=== PATIENT | female | born 1960 | race Caucasian/White ===

== ENCOUNTER 2016-09-05 10:14 | Inpatient (IN) | payer OTHER ==
[~2016-09-05] VITALS: Ht 167.6 cm; Wt 108.6 kg
--- NOTE | ~2016-09-05 | WRIGHTHP ---
[place], [place] PATIENT HISTORY AND PHYSICAL EXAM NAME: [facility]AN [facility] [id number] UNIT #: [id number] ROOM: 416 DOCTOR: NERY WIGGINS MD BIRTHDATE: [birth year] DOS: 09/05/2016 HISTORY OF PRESENT ILLNESS: This patient is 56 years old. The patient comes in with complaints of difficulty breathing for the last week. She was seen in the Emergency Room, was placed on steroids, antibiotics, and inhaler. Did not get any better, continued to get worse, and so finally decided to come back in. She denies having any chest pains or palpitations. She states that she has not been smoking for about last 3-4 days. PAST MEDICAL HISTORY: Significant for: 1. Coronary artery disease of [place] coronaries. 2. Benign hypertension. 3. Type 2 diabetes mellitus. 4. Generalized anxiety disorder. 5. Small vessel disease of the brain. 6. Tobacco dependence. MEDICATIONS: ProAir q.i.d., aspirin 81, Persantine 25, lisinopril-hydrochlorothiazide one tablet daily, metformin 250 daily. SOCIAL HISTORY: Smoker of about 1 pack of cigarettes a day. Denies using any alcohol. Lives at home with her . PHYSICAL EXAMINATION: GENERAL: She is awake and alert and oriented, in mild respiratory distress. Has oxygen on. VITAL SIGNS: Blood pressure is 108/64, pulse is 68, respirations 22, temperature 98.3. LUNGS: Diminished breath sounds. HEART: Regular. ABDOMEN: Obese. EXTREMITIES: Without any edema. ASSESSMENT AND PLAN: 1. Hypoxic respiratory failure. Saturation was in the low 80s when she arrived. She was placed on oxygen supplementation with improvement in the saturations. 2. Acute exacerbation of chronic obstructive pulmonary disease. The patient is ordered a chest x-ray, which did not show any evidence of pneumonia. The patient is placed on IV steroids and antibiotics. 3. Tobacco dependence. Advised against smoking. 4. Benign hypertension, controlled. 5. Type 2 diabetes mellitus, non-insulin dependent. With the steroids, the sugars may go up. We will be careful with the blood sugars twice a day. [place], [place] PATIENT HISTORY AND PHYSICAL EXAM NAME: KATHRINE REAGAN UNIT #: [id number] ROOM: 416 DOCTOR: NERY WIGGINS MD BIRTHDATE: [birth year] NERY WIGGINS MD CM:HISPHYS:PATIENT HISTORY AND PHYSICAL EXAMINATION 2 NERY WIGGINS MD 09/06/16 1134 interface
--- NOTE | ~2016-09-05 | DS ---
[place], [place] DISCHARGE SUMMARY NAME: KATHRINE REAGAN UNIT #: [id number] ROOM: 416 DOCTOR: NERY WIGGINS MD BIRTHDATE: [birth year] DOS: 09/08/2016 This patient is 56 years old. The patient is admitted to the hospital on 09/05/2016, discharged on 09/08/2016. DIAGNOSES: 1. Acute exacerbation of chronic obstructive pulmonary disease. 2. Tobacco dependence. 3. Acute hypoxic respiratory failure. 4. Benign hypertension. 5. Type 2 diabetes mellitus, non-insulin dependent. 6. Coronary artery disease with moderate disease. 7. Small vessel disease of the brain. MEDICATIONS ON DISCHARGE: Will be DuoNebs q.4, doxycycline 100 mg twice a day, prednisone tapering dose, oxygen 2 liters, metformin 250 daily, Persantine 25 daily, aspirin 81 daily, lisinopril/hydrochlorothiazide 20/12.5 daily. HOSPITAL COURSE: The patient is very well known to us, 56 years old, comes in with complaints of difficulty breathing. She was already seen in the Emergency Room 2 weeks ago, was prescribed steroids and inhaler, continued to get worse, so she decided to come in to the Emergency Room. This time, her saturation on room air was in the low 80s, was placed on oxygen supplementation, IV steroids and breathing treatments and was admitted. She has improved, the bronchospasm has resolved, but she still has a very moist sounding cough and is going to have a CT of the chest this morning. Exercise oximetry showed that she desaturated and she would require oxygen 24 hours at home. She is advised against smoking and has requested Habitrol patch which will be prescribed today. Breathing treatments and nebulizer has also been ordered. If the CT of the chest does not show anything major, the patient will be discharged home to be followed up as an outpatient. [place], [place] DISCHARGE SUMMARY NAME: KATHRINE REAGAN UNIT #: [id number] ROOM: 416 DOCTOR: NERY WIGGINS MD BIRTHDATE: [birth year] NERY WIGGINS MD CM:DISCHARG [id number] NERY WIGGINS MD 09/08/16 1146 interface
--- NOTE | ~2016-09-05 | PR ---
[place], [place] PROGRESS NOTE NAME: KATHRINE REAGAN UNIT #: [id number] ROOM: 416 DOCTOR: NERY WIGGINS MD BIRTHDATE: [birth year] DOS: 09/07/2016 SUBJECTIVE: The patient states that she felt better and did have a good night sleep. OBJECTIVE: VITAL SIGNS: Graphic trend shows a pressure of 126/64, pulse of 63, respirations 22, temperature 97.9. LUNGS: Clear. HEART: Regular. ABDOMEN: Obese, soft. EXTREMITIES: Without any edema. ASSESSMENT AND PLAN: 1. Acute exacerbation of chronic obstructive pulmonary disease with failed outpatient regimen. Her bronchospasm is improving with the current treatment plan. 2. Acute hypoxic respiratory failure. Exercise oximetry will be done today to see whether she will need oxygen at home. 3. Benign hypertension, controlled. The plan will be to discharge her to home tomorrow. NERY WIGGINS MD CM:PNTRANS [id number] NERY WIGGINS MD 10/11/16 1347 interface
--- NOTE | ~2016-09-05 | PR ---
[place], [place] PROGRESS NOTE NAME: KATHRINE REAGAN UNIT #: [id number] ROOM: 416 DOCTOR: NERY WIGGINS MD BIRTHDATE: [birth year] DOS: 09/08/2016 SUBJECTIVE: The patient is doing fine without any new complaints. She still has a cough which is moist. OBJECTIVE: VITAL SIGNS: Graphic trend shows a pressure 122/68, pulse of 68, respirations 20, temperature 97.6. LUNGS: Diminished breath sounds, fairly clear this morning. HEART: Regular. ABDOMEN: Obese, soft. EXTREMITIES: Without any edema. ASSESSMENT AND PLAN: 1. Acute exacerbation of chronic obstructive pulmonary disease, on IV steroids and breathing treatments. 2. Acute hypoxic respiratory failure. Exercise oximetry showed that she desaturated, oxygen will be ordered for home right now. This may be temporary, we will have to wait and see how she progresses. 3. Benign hypertension, controlled. The plan is to discharge her to home today after the CT of the chest was done. Discussed with the patient's daughter. NERY WIGGINS MD CM:PNTRANS [phone] NERY WIGGINS MD 09/08/161912 interface
[~2016-09-05 10:14] MED LIST: AMOXICILLIN500 M2 PO; ASPIR-LOX AD325 MG PO; ASPIRIN325 M2 PO; ASPIRIN81 M1 PO; AUGMENTIN 875 M1 TA1 PO; BACTRIM DS 8001 TA1 PO; BENTYL20 MG PO; BIAXIN500 MG PO; CLARITIN10 MG PO; DAYPRO600 M1 PO; DIPYRIDAMOLE25 MG PO; Ecotrin325 MG PO; FLEXERIL5 MG PO; FLONASE0.05 MG/AC NS; GLUCOPHAGE500 MG PO; HYDROCHLOROTHIAZIDE; HYDROCODONE BIT1 T11 PO; LISINOPRIL; LISINOPRIL/HCTZ1 TA4 PO; LISINOPRIL20 MG PO; LOPID600 M1 PO; MEDROL DOSEPAK4 MG PO; METOPROLOL50 MG PO; MOTRIN800 MG PO; NORCO 325 MG-101 TAB PO; PERSANTINE25 MG PO; PHENERGAN W/DM120 ML PO; PREDNICOT10 MG PO; PREDNISONE10 MG PO; PREDNISONE20 M1 PO; PREDNISONE20 MG PO; PRILOSEC40 MG PO; PRINIVIL20 M1 PO; PROAIR HFA8.5 GM INH; PROVENTIL0.09 MG/AC IH; ROBITUSSIN DM 105 ML PO; SONATA10 MG PO; TOBRADEX 0.1%-0.5 ML OPH; TRICOR145 MG PO; TYLOPHEN500 MG PO; VICODIN 5/500 505 MG PO; VITAMIN D5000 I3 PO; VITAMIN D5000 IU PO; ZITHROMAX Z PA250 MG PO
[2016-09-05 10:19] VITALS: BP 155/66
[2016-09-05 10:57] LABS: BASO # 0.1 10*3/uL (0.0-0.1); BASO % 0.5 % (0.0-1.0); EOS # 0.2 10*3/uL (0.0-0.4); EOS % 1.4 % (1.0-4.0); HEMATOCRIT 46.3 % (37.0-47.0); HEMOGLOBIN 14.9 g/dl (12.0-16.0); IG # 0.1 10*3/uL (0.0-0.1); LYMPH # 2.8 10*3/uL (1.3-4.4); LYMPH % 21.1 % (27.0-41.0); MEAN CELL VOLUME 93.9 fl (81.0-99.0); MEAN CORPUSCULAR HGB 30.2 pg (27.0-31.0); MEAN CORPUSCULAR HGB CONC 32.2 g/dl (33.0-37.0); MEAN PLATELET VOLUME 10.2 fl (9.6-12.3); MONO # 0.7 10*3/uL (0.1-1.0); MONO % 5.4 % (3.0-9.0); NEUT # 9.4 10*3/uL (2.3-7.9); NEUT % 70.8 % (47.0-73.0); PLATELET COUNT AUTOMATED 341 10*3/uL (130-400); RED BLOOD COUNT 4.93 10*6/uL (4.10-5.10); WHITE BLOOD COUNT 13.2 10*3/uL (4.8-10.8)
[2016-09-05 11:06] LABS: INTERNATIONAL NORM RATIO 0.9 (2.0-3.5)
[2016-09-05 11:14] LABS: ALBUMIN 3.3 gm/dl (3.1-4.5); ALKALINE PHOSPHATASE 78 U/L (45-117); BILIRUBIN, TOTAL 0.3 mg/dl (0.2-1.0); BUN 8 mg/dl (7-24); CARBON DIOXIDE 30 mmol/L (21-32); CHLORIDE 104 mmol/L (98-107); EST GLOM FILT AFRICAN AMERICAN > 60 ml/min; GLUCOSE 118 mg/dL (65-99); MAGNESIUM 2.1 mg/dL (1.5-2.1); POTASSIUM 4.3 mmol/L (3.5-5.1); SGOT/AST 9 IU/L (3-35); SGPT/ALT 17 U/L (12-78); SODIUM 141 mmol/L (136-145); TOTAL PROTEIN 7.3 gm/dL (6.4-8.2)
[2016-09-05 11:18] LABS: TROPONIN I < 0.015 ng/ml (<0.5)
[2016-09-05 11:40] VITALS: BP 142/66
[2016-09-05 12:30] VITALS: BP 124/64
[2016-09-05] MEDS ORDERED: LISINOPRIL-HYDR1 TA1 PO (13:14)
[2016-09-05 16:00] VITALS: BP 125/57
[2016-09-05 18:37] LABS: BILIRUBIN NEGATIVE (NEGATIVE); BLOOD TRACE-INTACT (NEGATIVE); CLARITY CLEAR (CLEAR); COLOR YELLOW (YELLOW); GLUCOSE NEGATIVE (NEGATIVE); KETONE NEGATIVE (NEGATIVE); LEUKO ESTERASE 1+ (NEGATIVE); NITRITE NEGATIVE (NEGATIVE); PH 5.5 (5.0-9.0); PROTEIN NEGATIVE (NEGATIVE); SPECIFIC GRAVITY 1.015 (1.005-1.030); UROBILINOGEN 0.2 E.U./dl (0.2-1.0)
[2016-09-05 18:50] LABS: WBC 31-40 wbc/hpf (0-5)
[2016-09-05 18:51] LABS: BACTERIA 1+; URINE REFLEX COMMENT YES (NO)
[2016-09-05 20:00] VITALS: BP 132/54
[2016-09-06] VITALS: BP 121/58
[2016-09-06 08:00] VITALS: BP 108/54
[2016-09-06 12:00] VITALS: BP 116/75
[2016-09-06 16:00] VITALS: BP 129/60
[2016-09-06 20:00] VITALS: BP 135/66
[2016-09-07] VITALS: BP 126/64
[2016-09-07 08:10] VITALS: BP 130/76
[2016-09-07 12:00] VITALS: BP 117/61
[2016-09-07 16:00] VITALS: BP 134/68
[2016-09-07 20:00] VITALS: BP 138/73
[2016-09-08] VITALS: BP 119/65
[2016-09-08 08:00] VITALS: BP 122/68
[2016-09-08] MEDS ORDERED: DUONEB 3 MG/3 ML3 M1 NEB (08:35)
[2016-09-08] MEDS ORDERED: PREDNISONE5 MG PO (08:35)
[2016-09-08] MEDS ORDERED: DOXYCYCLINE100 MG PO (08:35)
== END 2016-09-08 11:53 | disposition home or self-care (01) | DRG 189 ==
LOC: ED 10:14 → EDHOLD 11:49 → 4E 12:17
PROVIDERS: Student in an Organized Health Care Education/Training Program
DX: J96.01 Acute respiratory failure with hypoxia (principal); J44.1 Chronic obstructive pulmonary disease with (acute) exacerbation; I10 Essential (primary) hypertension; F17.200 Nicotine dependence, unspecified, uncomplicated; E11.9 Type 2 diabetes mellitus without complications; I25.10 Atherosclerotic heart disease of native coronary artery without angina pectoris; G93.9 Disorder of brain, unspecified

== ENCOUNTER 2016-12-05 18:24 | Emergency (ER) | payer OTHER ==
--- NOTE | ~2016-12-05 | EKG ---
[place], [place] ELECTROCARDIOGRAM REPORT NAME: KATHRINE REAGAN UNIT #: [id number] ROOM: DOCTOR: CHARLES ARELLANO MD BIRTHDATE: [birth year] DOS: 12/05/2016 TIME: 1852 hours. FINDINGS: 1. Normal sinus rhythm at a rate of 83 with occasional PACs. 2. Leftward axis. 3. Poor precordial R-wave progression. 4. Left atrial enlargement. 5. Abnormal electrocardiogram. CHARLES ARELLANO MD CM:EKGRPT:ELECTROCARDIOGRAM REPORT [id number] 1153 CHARLES ARELLANO MD
[~2016-12-05 18:24] MED LIST changes: +DOXYCYCLINE100 MG PO; +DUONEB 3 MG/3 ML3 M1 NEB; +LISINOPRIL-HYDR1 TA1 PO; +PREDNISONE5 MG PO
[2016-12-05] MEDS ORDERED: PROAIR HFA8.5 GM INH (18:30)
[2016-12-05 18:49] LABS: BASO # 0.1 10*3/uL (0.0-0.1); BASO % 0.5 % (0.0-1.0); EOS # 0.2 10*3/uL (0.0-0.4); EOS % 1.7 % (1.0-4.0); HEMOGLOBIN 15.1 g/dl (12.0-16.0); IG # 0.1 10*3/uL (0.0-0.1); LYMPH # 2.8 10*3/uL (1.3-4.4); LYMPH % 23.1 % (27.0-41.0); MEAN CELL VOLUME 91.9 fl (81.0-99.0); MEAN CORPUSCULAR HGB 31.5 pg (27.0-31.0); MEAN CORPUSCULAR HGB CONC 34.3 g/dl (33.0-37.0); MEAN PLATELET VOLUME 10.2 fl (9.6-12.3); MONO # 0.7 10*3/uL (0.1-1.0); NEUT # 8.4 10*3/uL (2.3-7.9); NEUT % 68.2 % (47.0-73.0); PLATELET COUNT AUTOMATED 306 10*3/uL (130-400); RED BLOOD COUNT 4.79 10*6/uL (4.10-5.10); RED CELL DISTRI WIDTH 14.3 % (0-14.5); WHITE BLOOD COUNT 12.3 10*3/uL (4.8-10.8)
[2016-12-05 19:08] LABS: ALBUMIN 4.1 gm/dl (3.1-4.5); ALKALINE PHOSPHATASE 79 U/L (45-117); BILIRUBIN, TOTAL 0.3 mg/dl (0.2-1.0); BUN 9 mg/dl (7-24); CARBON DIOXIDE 30 mmol/L (21-32); CHLORIDE 102 mmol/L (98-107); EST GLOM FILT AFRICAN AMERICAN > 60 ml/min; GLUCOSE 147 mg/dL (65-99); POTASSIUM 3.8 mmol/L (3.5-5.1); SGOT/AST 14 IU/L (3-35); SGPT/ALT 23 U/L (12-78); SODIUM 144 mmol/L (136-145); TOTAL PROTEIN 7.7 gm/dL (6.4-8.2)
[2016-12-05 19:10] LABS: TROPONIN I < 0.015 ng/ml (<0.045)
== END 2016-12-05 19:47 | disposition home or self-care (01) ==
LOC: ED 18:24
PROVIDERS: Physician Assistant
DX: R04.0 Epistaxis (principal); R00.2 Palpitations; F17.200 Nicotine dependence, unspecified, uncomplicated; Z79.82 Long term (current) use of aspirin; Z90.49 Acquired absence of other specified parts of digestive tract; Z88.1 Allergy status to other antibiotic agents; Z88.6 Allergy status to analgesic agent; Z88.8 Allergy status to other drugs, medicaments and biological substances

== ENCOUNTER 2017-02-25 10:04 | Inpatient (IN) | payer OTHER ==
[~2017-02-25] VITALS: Ht 170.1 cm; Wt 108.2 kg
[2017-02-25 10:04] VITALS: BP 154/76
[2017-02-25] MEDS ORDERED: INSULIN (10:21)
[2017-02-25 10:29] VITALS: BP 152/80
[2017-02-25 10:30] LABS: BASO # 0.1 10*3/uL (0.0-0.1); BASO % 0.6 % (0.0-1.0); EOS # 0.1 10*3/uL (0.0-0.4); EOS % 1.2 % (1.0-4.0); HEMOGLOBIN 15.1 g/dl (12.0-16.0); IG # 0.1 10*3/uL (0.0-0.1); LYMPH # 2.5 10*3/uL (1.3-4.4); LYMPH % 24.4 % (27.0-41.0); MEAN CELL VOLUME 92.4 fl (81.0-99.0); MEAN CORPUSCULAR HGB CONC 33.6 g/dl (33.0-37.0); MEAN PLATELET VOLUME 10.6 fl (9.6-12.3); MONO # 0.6 10*3/uL (0.1-1.0); MONO % 6.4 % (3.0-9.0); NEUT # 6.7 10*3/uL (2.3-7.9); NEUT % 66.8 % (47.0-73.0); PLATELET COUNT AUTOMATED 288 10*3/uL (130-400); RED BLOOD COUNT 4.87 10*6/uL (4.10-5.10); RED CELL DISTRI WIDTH 13.1 % (0-14.5)
[2017-02-25 10:39] LABS: INTERNATIONAL NORM RATIO 0.9 (2.0-3.5); PROTHROMBIN TIME 9.8 SECONDS (9.0-12.4)
[2017-02-25 10:46] LABS: ALBUMIN 4.1 gm/dl (3.1-4.5); ALKALINE PHOSPHATASE 73 U/L (45-117); BILIRUBIN, TOTAL 0.3 mg/dl (0.2-1.0); BUN 9 mg/dl (7-24); C-REACTIVE PROTEIN 0.92 MG/DL (0-0.3); CARBON DIOXIDE 27 mmol/L (21-32); CHLORIDE 105 mmol/L (98-107); CPK 46 U/L (26-192); EST GLOM FILT AFRICAN AMERICAN > 60 ml/min; GLUCOSE 117 mg/dL (65-99); MAGNESIUM 2.1 mg/dL (1.5-2.1); POTASSIUM 4.1 mmol/L (3.5-5.1); SGOT/AST 14 IU/L (3-35); SGPT/ALT 22 U/L (12-78); SODIUM 140 mmol/L (136-145); TOTAL PROTEIN 7.5 gm/dL (6.4-8.2)
[2017-02-25 10:47] LABS: CKMB < 0.5 ng/ml (0.5-3.6); TROPONIN I < 0.015 ng/ml (<0.045)
[2017-02-25 11:00] LABS: BILIRUBIN NEGATIVE (NEGATIVE); BLOOD NEGATIVE (NEGATIVE); CLARITY CLEAR (CLEAR); COLOR YELLOW (YELLOW); GLUCOSE NEGATIVE (NEGATIVE); KETONE NEGATIVE (NEGATIVE); LEUKO ESTERASE 1+ (NEGATIVE); NITRITE NEGATIVE (NEGATIVE); PH 5.5 (5.0-9.0); PROTEIN NEGATIVE (NEGATIVE); SPECIFIC GRAVITY <= 1.005 (1.005-1.030); UROBILINOGEN 0.2 E.U./dl (0.2-1.0)
[2017-02-25 11:13] LABS: BACTERIA 1+; URINE REFLEX COMMENT YES (NO)
[2017-02-25 12:35] VITALS: BP 132/84
[2017-02-25 14:45] VITALS: BP 123/69
[2017-02-25] MEDS ORDERED: PERSANTINE75 MG PO (14:53)
[2017-02-25] MEDS ORDERED: LOPID600 M1 PO (14:53)
[2017-02-25 16:00] VITALS: BP 127/72
[2017-02-25 20:00] VITALS: BP 118/70
[2017-02-26] VITALS: BP 116/56
[2017-02-26 08:00] VITALS: BP 116/64
[2017-02-26 12:00] VITALS: BP 114/64
[2017-02-26 16:00] VITALS: BP 120/68
[2017-02-26 20:00] VITALS: BP 112/50
[2017-02-27] VITALS: BP 116/52
[2017-02-27] MEDS ORDERED: AUGMENTIN 875875 MG PO (07:13)
[2017-02-27] MEDS ORDERED: LOPRESSOR25 MG PO (07:13)
[2017-02-27 08:00] VITALS: BP 110/65
== END 2017-02-27 08:56 | disposition home or self-care (01) | DRG 313 ==
LOC: ED 10:04 → EDHOLD 13:55 → 4E 14:03
PROVIDERS: Emergency Medicine
DX: R07.2 Precordial pain (principal); I10 Essential (primary) hypertension; N39.0 Urinary tract infection, site not specified; E11.9 Type 2 diabetes mellitus without complications; B96.89 Other specified bacterial agents as the cause of diseases classified elsewhere; F17.210 Nicotine dependence, cigarettes, uncomplicated; J44.9 Chronic obstructive pulmonary disease, unspecified; R42 Dizziness and giddiness; Z88.1 Allergy status to other antibiotic agents; Z88.6 Allergy status to analgesic agent; Z88.8 Allergy status to other drugs, medicaments and biological substances; Z90.710 Acquired absence of both cervix and uterus; Z90.49 Acquired absence of other specified parts of digestive tract; Z98.51 Tubal ligation status; Z82.49 Family history of ischemic heart disease and other diseases of the circulatory system; Z83.3 Family history of diabetes mellitus; Z79.82 Long term (current) use of aspirin; Z79.899 Other long term (current) drug therapy; Z71.6 Tobacco abuse counseling; Z86.73 Personal history of transient ischemic attack (TIA), and cerebral infarction without residual deficits

== ENCOUNTER → 2017-03-01 | Outpatient (CLI) | payer OTHER ==
[~2017-03-01] MED LIST changes: +AUGMENTIN 875875 MG PO; +INSULIN; +LOPRESSOR25 MG PO; +PERSANTINE75 MG PO
== END | disposition home or self-care (01) ==
LOC: CARD 05:09
DX: R07.2 Precordial pain (principal)

== ENCOUNTER → 2017-04-07 | Outpatient (CLI) | payer OTHER | END | disposition home or self-care (01) | LOC: MAMMO 01:11 | DX: Z12.31 Encounter for screening mammogram for malignant neoplasm of breast (principal); N95.9 Unspecified menopausal and perimenopausal disorder ==

== ENCOUNTER 2017-09-10 11:14 | Inpatient (IN) | payer OTHER ==
[~2017-09-10] VITALS: Ht 167.6 cm; Wt 110.3 kg
--- NOTE | ~2017-09-10 | PR ---
[place], [place] PROGRESS NOTE NAME: KATHRINE REAGAN UNIT #: [id number] ROOM: 404 DOCTOR: NERY WIGGINS MD BIRTHDATE: [birth year] DOS: SUBJECTIVE: The patient is doing well, does not have any new complaints. Appreciate Dr. Urbina's input. OBJECTIVE: VITAL SIGNS: Blood pressure is 110/72, pulse of 66, respirations 18, temperature 97.4. LUNGS: Diminished breath sounds, clear. HEART: Regular. ABDOMEN: Obese, soft. EXTREMITIES: Without any edema. ASSESSMENT AND PLAN: 1. Precordial chest pain with continued chest pain even though she has been ruled out for myocardial infarction. Discussed with Dr. Urbina. The patient most likely has underlying coronary disease and would benefit from cardiac catheterization. She is planning to be discharged to [place] today. 2. Chronic obstructive pulmonary disease with acute exacerbation. The patient was on steroids and antibiotics. She can be placed on p.o. steroids and antibiotics upon discharge from [place]. NERY WIGGINS MD CM:PNTRANS 0835 NERY WIGGINS MD 09/13/17 0859 interface
--- NOTE | ~2017-09-10 | PR ---
[place], [place] PROGRESS NOTE NAME: KATHRINE REAGAN UNIT #: [id number] ROOM: 404 DOCTOR: NERY WIGGINS MD BIRTHDATE: [birth year] DOS: SUBJECTIVE: The patient is continuing to have chest pains periodically, also complains of a cough, but unable to cough up much mucus. OBJECTIVE: VITAL SIGNS: Graphic trend shows a pressure of 122/72, pulse of 77, respirations 20, temperature 97.8. LUNGS: Clear. HEART: Regular. ABDOMEN: Obese, soft, nontender. EXTREMITIES: Without any edema. ASSESSMENT AND PLAN: 1. Precordial chest pain, ruled out for UT on appropriate treatment plan. The patient continues to complain of chest pain. We have asked Dr. Charlton to see the patient who is out of town and I am hoping another supervisor heavy equipment will see the patient today. The patient may require a cardiac catheterization because of continued complaints. She had a negative stress test less than 6 months ago. 2. Chronic obstructive pulmonary disease with acute exacerbation with acute tracheobronchitis on IV steroids and antibiotics. 3. Moderate cigarette smoker. Advised against, the patient is stable at this present time. I am waiting for cardiology opinion. NERY WIGGINS MD CM:PNTRANS [id number] NERY WIGGINS MD 09/12/17 0843 interface
--- NOTE | ~2017-09-10 | WRIGHTHP ---
[place], [place] PATIENT HISTORY AND PHYSICAL EXAM NAME: KATHRINE REAGAN [facility] #: [id number] UNIT #: [id number] ROOM: 404 DOCTOR: NERY WIGGINS MD BIRTHDATE: [birth year] DOS: 09/10/2017 HISTORY OF PRESENT ILLNESS: The patient is 57-year-old. The patient comes in with complaints of left-sided chest pain. She came into the Emergency Room, was evaluated and was found to be hypoxic. She has had a very moist sounding cough. Denies having any nausea, any emesis, any abdominal pain, any fever or chills. Cough is productive of scant amounts of sputum. PAST MEDICAL HISTORY: Significant for: 1. History of multiple hospital admissions with chest pain, with negative stress test in the past. 2. COPD with continued nicotine abuse. 3. Benign hypertension. 4. Type 2 diabetes mellitus, non-insulin dependent, moderate cigarette smoker. 5. History of TIAs. MEDICATIONS: That she is on are: Breathing treatments, aspirin 81 mg daily, Persantine 25 mg daily, gemfibrozil 600 mg daily, lisinopril/hydrochlorothiazide 20/12.5 daily, metformin 500 mg daily. SOCIAL HISTORY: Smoker of about 1 pack of cigarettes a day. Denies using any alcohol. She lives at home with her . PHYSICAL EXAMINATION: GENERAL: She is awake and alert and oriented. VITAL SIGNS: Graphic trend shows that she is afebrile, blood pressure is 118/64, pulse of 78, respirations 18. LUNGS: Diminished breath sounds, a few scattered wheezes and diminished respirations. HEART: Regular. ABDOMEN: Obese, soft, nontender. EXTREMITIES: Without any edema. ASSESSMENT AND PLAN: 1. Precordial chest pain, ruled out for myocardial infarction. Cardiology consultations have been obtained. In February 2017, she had a stress test, which was negative. This was done in another hospital, so instead of doing another stress test, she may benefit from a cardiac catheterization if she continues to have chest pain because she is a smoker and has significant risk factors. 2. Acute hypoxic respiratory failure. Oxygen supplementation has been ordered. 3. Chronic obstructive pulmonary disease with mild exacerbation. The patient was placed on IV steroids and antibiotics. 4. Benign hypertension, controlled. 5. Type 2 diabetes mellitus, insulin-dependent. Blood sugar is to be checked twice daily. [place], [place] PATIENT HISTORY AND PHYSICAL EXAM NAME: KATHRINE REAGAN UNIT #: [id number] ROOM: 404 DOCTOR: NERY WIGGINS MD BIRTHDATE: [birth year] NERY WIGGINS MD CM:HISPHYS:PATIENT HISTORY AND PHYSICAL EXAMINATION 7 3 NERY WIGGINS MD 09/11/17923 interface
--- NOTE | ~2017-09-10 | CON ---
[place], [place] REPORT OF CONSULTATION NAME: KATHRINE REAGAN UNIT #: [id number] ROOM: 404 DOCTOR: CARY SUBRAMANIAN MD BIRTHDATE: [birth year] DOS: 09/12/2017 HISTORY OF PRESENT ILLNESS: This is a 57-year-old -[place] woman with moderate coronary artery disease as per heart cath about 6 years ago. She was in this hospital a couple of times last year and in February, a Lexiscan Cardiolite study did not demonstrate any ischemia. She presented to the hospital with anterior chest burning sensation and some discomfort along with some tingling sensation and the feeling went into the left shoulder and the upper part of the arm. It came and went and has had several episodes in the last 2 days. There is some accompanying clamminess and weakness, but no worsening of shortness of breath. She has not had any palpitation, dizziness or loss of consciousness or swelling of the lower extremities. She has no nausea, abdominal pain or blood in the stool. 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 She does have pain in the left leg when she walks. PAST MEDICAL HISTORY: Coronary artery disease as mentioned above, COPD, essential hypertension, type 2 diabetes mellitus and has TIAs. SOCIAL HISTORY: She continues to smoke cigarettes. HOME MEDICATIONS: Albuterol HFA, DuoNeb, aspirin 81 daily, dipyridamole 25 mg daily, gemfibrozil 600 mg daily, lisinopril/hydrochlorothiazide 20/12.5 daily, metformin 250 mg daily, naproxen 500 mg daily. PHYSICAL EXAMINATION: GENERAL: This reveals a patient who is very pleasant, alert, oriented. She is moderately obese and has oxygen on. Her complexion is fine. There is no thyromegaly or finger clubbing. VITAL SIGNS: CVS pulse is regular at 84 beats per minute, blood pressure 139/74. NECK: Normal JVP. No bruit in the neck. HEART: There is no cardiomegaly, no murmurs are present. Heart sounds are somewhat distant. She has excellent pedal pulses and no edema in lower extremities. RESPIRATORY: Lungs are clear to percussion. Auscultation reveals moderately diminished breath sounds with adventitious sounds in both lungs. ABDOMEN: Supple, nontender. There is no abdominal bruit. LABORATORY DATA: Troponin I level has been less than 0.015. Sodium is 140, potassium 4.1, BUN 14, creatinine 0.65, glucose 127 mg/dL, albumin 3.9 g/dL. Hemoglobin 12-14.5 grams, platelets 272,000. IMPRESSION AND PLAN: This patient with moderate coronary artery disease. She continues to smoke, has diabetes mellitus, hyperlipidemia, morbid obesity and chronic obstructive pulmonary disease, had negative stress test about 6 months as ago. My impression she is liable to significant coronary artery disease. Therefore, [place], [place] REPORT OF CONSULTATION NAME: KATHRINE REAGAN UNIT #: [id number] ROOM: 404 DOCTOR: MORIS LINN,CARY BIRTHDATE: [birth year] I recommend that a diagnostic heart catheterization and selective coronary angiogram is recommended, which I did. I pointed all the risks and the benefits including CVA, PA, , hematoma, vascular injury and renal insufficiency. She understands and would like to pursue. The right transradial approach will be used. I thank you on behalf of Dr. Charlton for this consult. CARY SUBRAMANIAN MD CM:CONSTR:REPORT OF CONSULTATION 1215 09/12/17 1401 interface NERY WIGGINS MD
[2017-09-10 11:22] VITALS: BP 139/74
[2017-09-10 11:43] LABS: BASO % 0.4 % (0.0-1.0); EOS # 0.1 10*3/uL (0.0-0.4); EOS % 1.4 % (1.0-4.0); HEMATOCRIT 44.7 % (37.0-47.0); HEMOGLOBIN 14.5 g/dl (12.0-16.0); LYMPH % 19.9 % (27.0-41.0); MEAN CELL VOLUME 92.2 fl (81.0-99.0); MEAN CORPUSCULAR HGB 29.9 pg (27.0-31.0); MEAN CORPUSCULAR HGB CONC 32.4 g/dl (33.0-37.0); MEAN PLATELET VOLUME 10.5 fl (9.6-12.3); MONO # 0.7 10*3/uL (0.1-1.0); MONO % 6.9 % (3.0-9.0); NEUT # 7.1 10*3/uL (2.3-7.9); NEUT % 71.1 % (47.0-73.0); PLATELET COUNT AUTOMATED 272 10*3/uL (130-400); RED BLOOD COUNT 4.85 10*6/uL (4.10-5.10); RED CELL DISTRI WIDTH 14.5 % (0-14.5); WHITE BLOOD COUNT 9.9 10*3/uL (4.8-10.8)
[2017-09-10 11:52] LABS: ACT PARTIAL THROMBO TIME 24.7 SECONDS (20.8-31.5)
[2017-09-10 11:53] VITALS: BP 118/65
[2017-09-10 11:58] LABS: ALBUMIN 3.9 gm/dl (3.1-4.5); ALKALINE PHOSPHATASE 74 U/L (45-117); BUN 14 mg/dl (7-24); CHLORIDE 104 mmol/L (98-107); CREATININE 0.65 mg/dL (0.55-1.02); LIPASE 203 U/L (73-393); POTASSIUM 4.1 mmol/L (3.5-5.1); SGOT/AST 16 IU/L (3-35); SGPT/ALT 22 U/L (12-78); SODIUM 140 mmol/L (136-145); TOTAL PROTEIN 7.3 gm/dL (6.4-8.2); TROPONIN I < 0.015 ng/ml (<0.045)
[2017-09-10 13:00] VITALS: BP 118/80
[2017-09-10] MEDS ORDERED: NAPROXEN D/R500 MG PO (13:07)
[2017-09-10 16:00] VITALS: BP 130/66
[2017-09-10 20:00] VITALS: BP 125/56
[2017-09-11] VITALS: BP 117/54
[2017-09-11 04:00] VITALS: BP 107/58
[2017-09-11 08:00] VITALS: BP 118/64
[2017-09-11 12:00] VITALS: BP 107/52
[2017-09-11 16:00] VITALS: BP 126/66
[2017-09-11 20:00] VITALS: BP 120/59
[2017-09-12] VITALS: BP 122/72
[2017-09-12 08:00] VITALS: BP 121/64
[2017-09-12 12:00] VITALS: BP 130/60
[2017-09-12 16:00] VITALS: BP 133/57
[2017-09-12 20:00] VITALS: BP 106/60
[2017-09-13] VITALS: BP 121/53
[2017-09-13 08:00] VITALS: BP 110/72
== END 2017-09-13 08:45 | disposition short-term general hospital (02) | DRG 189 ==
LOC: ED 11:14 → 4E 12:18 → EDHOLD 12:18 → 4E 12:28
PROVIDERS: Emergency Medicine
DX: J96.01 Acute respiratory failure with hypoxia (principal); E66.01 Morbid (severe) obesity due to excess calories; J44.0 Chronic obstructive pulmonary disease with (acute) lower respiratory infection; J44.1 Chronic obstructive pulmonary disease with (acute) exacerbation; R07.9 Chest pain, unspecified; J20.9 Acute bronchitis, unspecified; I25.10 Atherosclerotic heart disease of native coronary artery without angina pectoris; E78.5 Hyperlipidemia, unspecified; I10 Essential (primary) hypertension; E11.9 Type 2 diabetes mellitus without complications; F17.210 Nicotine dependence, cigarettes, uncomplicated; Z98.51 Tubal ligation status; Z90.49 Acquired absence of other specified parts of digestive tract; Z83.3 Family history of diabetes mellitus; Z88.1 Allergy status to other antibiotic agents; Z88.5 Allergy status to narcotic agent; Z82.49 Family history of ischemic heart disease and other diseases of the circulatory system; Z86.73 Personal history of transient ischemic attack (TIA), and cerebral infarction without residual deficits; Z79.899 Other long term (current) drug therapy; Z79.82 Long term (current) use of aspirin; Z79.84 Long term (current) use of oral hypoglycemic drugs; Z68.39 Body mass index [BMI] 39.0-39.9, adult

== ENCOUNTER 2018-09-16 10:48 | Inpatient (IN) | payer OTHER ==
[~2018-09-16] VITALS: Ht 167.6 cm; Wt 111.3 kg
[2018-09-16] VITALS (8 sets, daily range): BP systolic 112–130; BP diastolic 49–72
--- NOTE | ~2018-09-16 | EKG ---
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
--- NOTE | ~2018-09-16 | PR ---
[place], [place] PROGRESS NOTE NAME: KATHRINE REAGAN UNIT #: [id number] ROOM: 411 DOCTOR: MANAV CARBALLO MD BIRTHDATE: [birth year] DOS: 09/19/2018 SUBJECTIVE: She has done very well after bronchoscopy with marked improvement and resolution of the acute respiratory symptoms after that. The coughing has improved significantly. There were no symptoms of chest pain. There was no wheezing reported. OBJECTIVE: VITAL SIGNS: For the patient which were recorded showed normal temperature, respiratory rate 20, heart rate 71, blood pressure 110/80-120/67. Pulse oxygen saturation recorded as 94% saturation on 3 liters nasal cannula. HEENT: Showed no acute change. NECK: Supple. CARDIOVASCULAR SYSTEM: S1, S2 is audible. LUNGS: Without any wheezing or crackles at the present time. ABDOMEN: Soft, nontender, bowel sounds present. EXTREMITIES: No acute change. LABORATORY DATA: Gram stain of the bronchial washings of yesterday, moderate white blood cells, few epithelial cells, moderate gram-positive cocci in pairs and clusters, few gram-negative bacilli. Preliminary culture was noted as normal alondra. IMPRESSION: 1. The patient with significant reduction and improvement in respiratory acute exacerbation of chronic obstructive pulmonary disease with acute bronchitis with current plan of management. 2. Chronic obesity. 3. Chronic nicotine dependence. PLAN OF MANAGEMENT: The patient could be discharge on antibiotic tapering dose of prednisone. Outpatient follow suggested for comprehensive assessment pulmonary disease. This has been discussed with the patient and Dr. Rose Smith. [place], [place] PROGRESS NOTE NAME: KATHRINE REAGAN UNIT #: [id number] ROOM: 411 DOCTOR: MANAV CARBALLO MD BIRTHDATE: [birth year] MANAV URENA MD CM:PNTRANS [id number] MANAV RAPP MD 09/25/18 1057 interface
--- NOTE | ~2018-09-16 | PR ---
[place], [place] PROGRESS NOTE NAME: KATHRINE REAGAN UNIT #: [id number] ROOM: 411 DOCTOR: NERY WIGGINS MD BIRTHDATE: [birth year] DOS: 09/18/2018 SUBJECTIVE: The patient continues to have a very moist sounding cough, which is unable to cough up any mucus at all. OBJECTIVE: VITAL SIGNS: Graphic trend shows pressure 106/53, pulse of 60, respirations 20, temperature 98.0. LUNGS: Diminished breath sounds, very poor air entry. HEART: Regular. ABDOMEN: Obese. EXTREMITIES: Without any edema. ASSESSMENT AND PLAN: 1. Acute exacerbation of chronic obstructive pulmonary disease on IV steroids. Even on maximal treatment plan, the patient is unable to cough up any mucus. Bronchoscopy with bronchioalveolar lavage could be performed. Consult Dr. Cho. 2. Chest pains with negative catheterization last in 2017, this is noncardiac. 3. Moderate cigarette smoker with hypoxic respiratory failure, already on oxygen at home. Advised smoking cessation. NERY WIGGINS MD CM:PNTRANS 0817 1134 NERY WIGGINS MD 09/18/18 1134 interface
--- NOTE | ~2018-09-16 | EKG ---
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
--- NOTE | ~2018-09-16 | WRIGHTHP ---
[place], [place] PATIENT HISTORY AND PHYSICAL EXAM NAME: KATHRINE REAGAN [facility] #: [id number] UNIT #: [id number] ROOM: 411 DOCTOR: NERY WIGGINS MD BIRTHDATE: [birth year] DOS: HISTORY OF PRESENT ILLNESS: This patient is 58 years old. The patient is very well known to us, comes in with complaints of shortness of breath and chest discomfort. The patient states that she felt that her lungs were being squeezed. She has had a cough, which is productive of sputum. Denies having any fever or chills. Does not have any abdominal pain, nausea and emesis. When she arrived to the Emergency Room, her saturations were in the low 80s and she continues to smoke. PAST MEDICAL HISTORY: Significant for: 1. COPD. 2. Moderate cigarette smoker. 3. Chronic respiratory failure, oxygen dependent. 4. Benign hypertension. 5. Type 2 diabetes mellitus. 6. Coronary artery disease with a cardiac catheterization in 08/2017, which was negative. SOCIAL HISTORY: Smokes about a pack of cigarettes a day. Denies using any alcohol. MEDICATIONS: Medications that she is on are breathing treatments, amlodipine 2.5, aspirin 81, dipyridamole 25, gemfibrozil 600 b.i.d., lisinopril/hydrochlorothiazide 20/12.5 daily, metformin 250 daily, naproxen 500 daily. PHYSICAL EXAMINATION: GENERAL: She is awake and alert and oriented, very moist sounding cough, mild respiratory distress. VITAL SIGNS: Blood pressure is 119/58, pulse of 72, respirations 20, temperature 97.7, T-max of 101. LUNGS: Diminished breath sounds, scattered wheezes. HEART: Regular. ABDOMEN: Obese, soft. EXTREMITIES: Without any edema. ASSESSMENT AND PLAN: 1. Acute exacerbation of chronic obstructive pulmonary disease. The patient is placed on IV steroids. 2. Moderate cigarette smoker, counseled against smoking. 3. Chest pain, most likely atypical since she had a negative cardiac catheterization earlier last year. No further workup is being planned. Troponins 3 sets were done, which have come back negative. Cardiology consultation was obtained. 4. Acute tracheobronchitis. Continue antibiotics. 5. Respiratory failure, acute. The patient will need to use oxygen supplementation. [place], [place] PATIENT HISTORY AND PHYSICAL EXAM NAME: KATHRINE REAGAN UNIT #: [id number] ROOM: 411 DOCTOR: NERY WIGGINS MD BIRTHDATE: [birth year] NERY WIGGINS MD [facility]IENT HISTORY AND PHYSICAL EXAMINATION 0839 0855 NERY WIGGINS MD 09/17/18 0856 interface
--- NOTE | ~2018-09-16 | DS ---
[place], [place] DISCHARGE SUMMARY NAME: KATHRINE REAGAN UNIT #: [id number] ROOM: 411 DOCTOR: NERY WIGGINS MD BIRTHDATE: [birth year] DOS: 09/19/2018 DIAGNOSES: 1. Acute exacerbation of chronic obstructive pulmonary disease. 2. Acute tracheobronchitis. 3. Bronchoscopy with bronchial lavage showing no bacterial growth. 4. Benign hypertension. 5. Coronary artery disease with complaints of chest pain with a negative cardiac catheterization in 08/2017. Cardiology cleared the patient for discharge. 6. History of type 2 diabetes mellitus, history of TIA, moderate cigarette smoker. HOSPITAL COURSE: A 58-year-old who comes in with complaints of difficulty breathing, cough. She was unable to cough up the mucus. After being seen in the Emergency Room, she was admitted. IV steroids, IV antibiotics were added. Rule out SD protocol was done, which was negative. Consultation with Dr. Cho as well as Dr. Castro was obtained. Dr. Castro does not feel that the pain is cardiac in nature. Dr. Cho did take her for a bronchoscopy. Bronchoscopy cultures were negative. This morning, the patient is doing much better. She is no longer having any bronchospasm, so the plan is to discharge her to home today to be followed up as an outpatient. DISCHARGE MEDICATIONS: Ceftin 250 twice a day for 5 days, prednisone tapering dose, metformin 250 daily, aspirin 81 daily, lisinopril/hydrochlorothiazide 20/12.5 daily, DuoNeb q. 4, ProAir 2 puffs q.i.d. p.r.n., gemfibrozil 600 b.i.d., naproxen 500 daily p.r.n., amlodipine 2.5 daily, and dipyridamole 25 daily. NERY WIGGINS MD [place], [place] DISCHARGE SUMMARY NAME: KATHRINE REAGAN UNIT #: [id number] ROOM: 411 DOCTOR: NERY WIGGINS MD BIRTHDATE: [birth year] NASRIN BENITO MD CM:ECHO 6 0 NERY WIGGINS MD 09/19/18900 interface
--- NOTE | ~2018-09-16 | CON ---
[place], [place] REPORT OF CONSULTATION NAME: KATHRINE REAGAN UNIT #: [id number] ROOM: 411 DOCTOR: CARY SUBRAMANIAN MD BIRTHDATE: [birth year] DOS: 09/17/2018 HISTORY OF PRESENT ILLNESS: This is a 58-year-old -[place]ammar[place] woman with a history of morbid obesity, COPD, essential hypertension, type 2 diabetes mellitus and allegedly has had TIAs without any residual. She had a cholecystectomy and also had bowel surgery in the remote past. She has never had a heart attack or heart failure and she had a diagnostic heart catheterization done one year ago in [facility]. I reviewed those images and she had large normal coronary arteries and normal LV systolic function. She had noticed some increasing shortness of breath and was coughing as well without any expectoration. She had burning sensation in the anterior part of the chest on and off for about 2 days or so and it would happen at night when she was sitting and was not exacerbated by activity. She had no palpitations or dizziness or loss of consciousness, but did have sweating with shortness of breath and the chest pain. She lives at home and continues to smoke 1 pack of cigarettes per day. HOME MEDICATIONS: Include albuterol/ProAir HFA 2 puffs q.i.d., DuoNeb aerosol treatments, aspirin 81 mg daily, amlodipine 2.5 mg daily, dipyridamole 25 mg daily, gemfibrozil 600 mg b.i.d., lisinopril/hydrochlorothiazide 20/12.5 mg daily, metformin 250 mg daily, naproxen 500 mg daily. ALLERGIES: She has had problem with quinolones, morphine, ciprofloxacin and metronidazole. PHYSICAL EXAMINATION: GENERAL: This is a patient who is alert, oriented. She is moderately obese. Her complexion is fine. She is not cyanotic. No jaundice. She has oxygen on. There is no thyromegaly or finger clubbing. VITAL SIGNS: Temperature 98 degrees, pulse is 84 and regular, blood pressure 112/64. NECK: JVP is normal. AJR is negative. There is no carotid bruit. HEART: There is no cardiomegaly. Cardiac auscultation revealed no murmurs or rubs. Excellent pedal pulses and no edema of the lower extremities. She has a harsh cough and she has reduced breath sounds bilaterally with some expiratory wheezing and some rhonchi and occasional crackle. ABDOMEN: Cholecystectomy scar is noted. There is a small incision at the umbilical area. Bowel sounds are normal. There is no bruit. There is no organomegaly. ABDOMEN: Supple and nontender. DIAGNOSTIC STUDIES: ECGs have shown normal sinus with no QS in anterior chest leads/poor RV progression suggestive of old anterior wall myocardial infarction; however, ECG with the same in 2013 and as I mentioned her coronary arteries were normal with normal motion of the anterior wall. Troponin I levels are normal. Chest x-ray was read as normal as well. [place], [place] REPORT OF CONSULTATION NAME: KATHRINE REAGAN UNIT #: [id number] ROOM: 411 DOCTOR: CARY SUBRAMANIAN MD BIRTHDATE: [birth year] IMPRESSION: This patient had acute chest pain and this was most likely due to exacerbation of chronic obstructive pulmonary disease and cough. She had normal coronary arteries 1 year ago and her tests are unremarkable; therefore, this symptom was most likely due to chronic obstructive pulmonary disease exacerbation. Further cardiac workup is not recommended. I thank you on behalf of Dr. Charlton. CARY SUBRAMANIAN MD CM:CONSTR:REPORT OF CONSULTATION 0740 09/25/18 1056 interface JOSE CARLOS CHARLTON MD
--- NOTE | ~2018-09-16 | PR ---
[place], [place] PROGRESS NOTE NAME: KATHRINE REAGAN UNIT #: [id number] ROOM: 411 DOCTOR: CARY SUBRAMANIAN MD BIRTHDATE: [birth year] DOS: Progress note for Dr. Hollis. SUBJECTIVE: She feels much better, still coughing; however, but no expectoration. Her breathing is easier as well. She has not had fever or chills. Appetite is fine. OBJECTIVE: GENERAL: The patient is very pleasant, alert, moderately obese, complexion is fine. VITAL SIGNS: Pulse is 64 and regular, blood pressure 118/49. NECK: Normal JVP. LUNGS: Breath sounds are diminished with adventitious sounds bilaterally. EXTREMITIES: No edema in lower extremities. IMPRESSION: This patient's chest pain is from the chest wall and shortness of breath is essentially from chronic obstructive pulmonary disease exacerbation. PLAN: No new recommendations. CARY SUBRAMANIAN MD CM:PNTRANS [id number] CARY SUBRAMANIAN MD 09/18/18 1439 interface
--- NOTE | ~2018-09-16 | CON ---
[place], [place] REPORT OF CONSULTATION NAME: KATHRINE REAGAN UNIT #: [id number] ROOM: 411 DOCTOR: ROMEL RAPP MDMANAV BIRTHDATE: [birth year] DOS: 09/18/2018 PULMONARY CONSULTATION, EVALUATION AND MANAGEMENT REASON FOR CONSULTATION: The consultation requested for severe nonresolving cough. HISTORY OF PRESENT ILLNESS: A 58-year-old white female patient who has been known with past history of COPD, continued to have an active tobacco use. She was admitted under care of Dr. Rose Smith on the date of 09/16/2018. The patient stated having symptoms of progressive shortness of breath associated with cough, which has been noted quite severe. The cough has been noted nonproductive. Denies symptoms of fever or chills with that. The patient reported symptoms of wheezing as well intermittently and increased shortness of breath. Denies symptoms of chest pain or hemoptysis. She has been admitted to the hospital for further medical management. REVIEW OF SYSTEMS: CONSTITUTIONAL SYMPTOMS: She does complain of fatigue and tiredness. Denies symptoms of fever or chills. EYES: Denies burning, redness, or tenderness. EAR, NOSE AND THROAT SYMPTOMS: Denies sore throat, hoarseness, otalgia, postnasal drainage, or epistaxis. CARDIOVASCULAR SYSTEM: Denies anginal pain, edema or pain of the lower extremities. GASTROINTESTINAL SYMPTOMS: Denies dysphagia, nausea, vomiting, diarrhea, abdominal pain, hematemesis, melena, or hematochezia. SKIN: Denies any abnormal lesions or rashes. GENITOURINARY SYMPTOMS: Denies dysuria, suprapubic pain, or hematuria. MUSCULOSKELETAL SYMPTOMS: Denies acute joint pain, redness, tenderness or deformities. CENTRAL NERVOUS SYSTEM: Denies dizziness, headache, diplopia, or syncopal episodes. Remaining systems were reviewed. They were noted all negative. PAST MEDICAL HISTORY: Reported history of: 1. Essential hypertension. 2. Mixed hyperlipidemia. 3. Obstructive sleep apnea disorder. 4. Type 2 diabetes mellitus. 5. Gastroesophageal reflux disease. 6. 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 Complete recovery was noted. SOCIAL HISTORY: The patient stated she is , has 2 children, lives at home. Denies history of alcohol use or illicit drug use. Tobacco use known for a long time, the patient started in the teens at least a pack of cigarettes per day. [place], [place] REPORT OF CONSULTATION NAME: KATHRINE REAGAN UNIT #: [id number] ROOM: 411 DOCTOR: MANAV CARBALLO MD BIRTHDATE: [birth year] PAST SURGICAL HISTORY: The patient reported as: 1. Left breast lumpectomy, which is benign. 2. Cholecystectomy. 3. Complete hysterectomy. 4. Partial colectomy for diverticulitis. FAMILY HISTORY: The patient's father at 50 years due to complication of myocardial infarction. Mother at 70 plus years of complication related to the colorectal cancer. MEDICATIONS: The medications from home were listed as use of: 1. DuoNeb 4 times a day p.r.n. for shortness of breath. 2. Lisinopril/hydrochlorothiazide 20/12.5 1 a day. 3. Lopid 600 mg p.o. b.i.d. 4. Naproxen 5 mg p.o. daily. 5. Norvasc 2.5 mg daily. 6. Persantine 25 mg p.o. daily. 7. Metformin 250 mg p.o. daily. 8. Aspirin 81 mg p.o. daily. 9. ProAir HFA inhaler p.r.n. use. DRUG ALLERGY HISTORY: THE PATIENT IS NOTED ALLERGIC TO: 1. FLUOROQUINOLONE: 2. MORPHINE. 3. METRONIDAZOLE. PHYSICAL EXAMINATION: GENERAL: A 58-year-old female patient who has been noted currently awake and alert without acute distress. Height of 5 feet 6 inches, weight of 245 pounds, BUN 39.6. VITAL SIGNS: Temperature 101 degrees Fahrenheit on admission, later on afebrile, respiratory rate range between 18-22, heart rate of 83-77, blood pressure 150-134/57. The pulse oxygen saturation was recorded on 3 liters nasal cannula 91% saturation, at rest on room air 84% saturation. HEENT: Chronic obesity. Head was atraumatic. Eyes nonicterus. Severe decreased posterior pharyngeal space, high tongue base, crowding of soft tissue structures. CARDIOVASCULAR: S1, S2 audible. LUNGS: General reduction in the breath sounds bilaterally. There were no crackles or wheezing. ABDOMEN: Soft, obese, nontender, bowel sounds present. EXTREMITIES: Chronic obesity. No edema, clubbing, or cyanosis. MUSCULOSKELETAL: Without acute deformities. CENTRAL NERVOUS SYSTEM: Cranial nerves 2-12 intact. LABORATORY DATA: PT/PTT on 09/16/2018 was normal. CBC on 09/16/2018; WBC count 8.4, hemoglobin and hematocrit normal, platelet count was normal. Lactic acid 1.6 on 09/16/2018. Troponin 3 sets on 09/16/2018 normal. Influenza A and B, nasal washing antigen negative. The chest x-ray that was done, 1 view reviewed, shows no acute pulmonary abnormalities. [place], [place] REPORT OF CONSULTATION NAME: KATHRINE REAGAN UNIT #: [id number] ROOM: 411 DOCTOR: MANAV CARBALLO MD BIRTHDATE: [birth year] IMPRESSION: The patient who has been currently admitted to the hospital noted with: 1. Ongoing severe acute exacerbation of chronic obstructive pulmonary disease with acute hypoxic respiratory failure secondary to that. 2. Moderate severe nonproductive cough without any sputum expectoration. 3. The patient with chronic severe obesity with obstructive sleep apnea disorder as well. 4. Essential hypertension. PLAN OF MANAGEMENT: Continuation of the current bronchodilators, oxygen supplementation, use of corticosteroids and other medical management. She has been assessed for therapeutic bronchoscopy, will be done today because severe nonproductive cough for the last 2 days without any resolution. Continue oxygen supplementation to maintain pulse ox saturation 90% or greater. Nicotine replacement therapy if the patient would like to use it for nicotine withdrawal. At this time, the patient has been noted comfortable for the past 2 days, has not used any nicotine replacement therapy. Other supportive therapy, plan of management, care plan. The risk and benefits of bronchoscopy has been addressed with the patient and she accepted the procedure. She is already n.p.o. past midnight and Dr. Rose Smith called to me to see this patient. Bronchoscopy done today. Any additional treatment changes recommendation will be made based on progression of illness. Thanks for allowing me to participate in the care of this patient. MANAV URENA MD CM:CONSTR:REPORT OF CONSULTATION 0930 09/18/18 2328 interface
--- NOTE | ~2018-09-16 | PROC NOTE ---
[place], [place] PROCEDURE NOTE NAME: KATHRINE REAGAN UNIT #: [id number] ROOM: 411 DOCTOR: ROMEL RAPP MD,MANAV BIRTHDATE: [birth year] DOS: 09/18/2018 PREOPERATIVE DIAGNOSIS: Severe cough and wheezing. POSTOPERATIVE DIAGNOSES: Removal of thick plugs and mucus endobronchial tree bilaterally. Finding of tracheobronchitis. PROCEDURE DESCRIPTION: Informed consent was obtained from this patient. The patient was brought into the OR and placed in supine position. Conscious sedation was administered by Anesthesia Department, after achieving proper sedation, airway was introduced into the mouth. Bronchoscope was advanced to the airway into laryngeal area. Epiglottis were seen. Vocal cords were symmetrically moving with the movements. The vocal cord and tracheal lumen. Tracheal lumen was identified. Tracheal lumen shows moderate amount of thick mucus secretion with small purulent secretion, suctioned out to the jocy level. Jocy noted sharp. Right upper, right middle, right lower, left upper, lingular lower bronchi were all examined. Moderate amount of thick plugs of mucus noted in the bronchial tree bilaterally which was cleared of normal saline wash. There were no endobronchial obstructive lesions. Procedure well tolerated by the patient. Postoperative finding will be discussed with the patient later once the patient recovered the effects of acute sedation. No family member was available with the patient at this time. MANAV URENA MD CM:PROCNOTE:PROCEDURE NOTE [id number] MANAV RAPP MD
--- NOTE | ~2018-09-16 | PR ---
[place], [place] PROGRESS NOTE NAME: KATHRINE REAGAN UNIT #: [id number] ROOM: 411 DOCTOR: NERY WIGGINS MD BIRTHDATE: [birth year] DOS: 09/19/2018 SUBJECTIVE: The patient is doing well, does not have any new complaints. Appreciate Dr. Cho's input. She did undergo bronchoscopy yesterday. OBJECTIVE: VITAL SIGNS: Graphic trend shows a pressure of 110/80, pulse of 70, respirations 20, temperature 97.7. LUNGS: Clear. HEART: Regular. ABDOMEN: Obese, soft. EXTREMITIES: Without any edema. LABORATORY DATA: Cultures routine preliminary shows normal alondra. Gram stain showed moderate gram-negative bacilli, moderate gram-positive cocci. Blood cultures, no bacterial growth. ASSESSMENT AND PLAN: 1. Acute exacerbation of chronic obstructive pulmonary disease is stable and bronchospasm is resolved. 2. Acute tracheobronchitis without any evidence of any ongoing pneumonia. Bronch cultures are negative. Plan is to discharge her to home today. NERY WIGGINS MD CM:PNTRANS [id number] NERY WIGGINS MD 09/19/18 0953 interface
--- NOTE | ~2018-09-16 | EKG ---
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
[~2018-09-16 10:48] MED LIST changes: +NAPROXEN D/R500 MG PO
[2018-09-16 11:26] LABS: BASO # 0.1 10*3/uL (0.0-0.1); BASO % 0.7 % (0.0-1.0); EOS # 0.1 10*3/uL (0.0-0.4); EOS % 1.4 % (1.0-4.0); HEMATOCRIT 44.7 % (37.0-47.0); HEMOGLOBIN 14.6 g/dl (12.0-16.0); LYMPH # 1.9 10*3/uL (1.3-4.4); LYMPH % 22.2 % (27.0-41.0); MEAN CELL VOLUME 93.3 fl (81.0-99.0); MEAN CORPUSCULAR HGB 30.5 pg (27.0-31.0); MEAN CORPUSCULAR HGB CONC 32.7 g/dl (33.0-37.0); MEAN PLATELET VOLUME 10.2 fl (9.6-12.3); MONO # 0.6 10*3/uL (0.1-1.0); MONO % 7.6 % (3.0-9.0); NEUT # 5.7 10*3/uL (2.3-7.9); NEUT % 67.5 % (47.0-73.0); PLATELET COUNT AUTOMATED 298 10*3/uL (130-400); RED BLOOD COUNT 4.79 10*6/uL (4.10-5.10); RED CELL DISTRI WIDTH 14.5 % (0-14.5); WHITE BLOOD COUNT 8.4 10*3/uL (4.8-10.8)
[2018-09-16 11:36] LABS: ACT PARTIAL THROMBO TIME 24.7 SECONDS (20.8-31.5); INTERNATIONAL NORM RATIO 0.9 (2.0-3.5)
[2018-09-16 11:41] LABS: ALBUMIN 3.7 gm/dl (3.1-4.5); ALKALINE PHOSPHATASE 71 U/L (45-117); BUN 14 mg/dl (7-24); CHLORIDE 104 mmol/L (98-107); CREATININE 0.65 mg/dL (0.55-1.02); LIPASE 189 U/L (73-393); SGOT/AST 9 IU/L (3-35); SGPT/ALT 20 U/L (12-78); SODIUM 140 mmol/L (136-145); TOTAL PROTEIN 7.3 gm/dL (6.4-8.2)
[2018-09-16 11:52] LABS: TROPONIN I < 0.015 ng/ml (<0.045)
--- NOTE | 2018-09-16 14:24 | NUR ---
A 58, admitted to , under the services of NERY Keith MD with a diagnosis of COPD WITH ACUTE EXACERBATION, HYPOXIA, CHEST PAIN. Chief complaint is C/O CHEST PAIN/SOB FOR APPOXIMATELY 2 DAYS. STATES "IT FEELS LIKE SOMEBODY WAS GRABBING MY LUNGS AND SQUEZZING THEM". PT ALERT. Patient arrived via stretcher from ER. Monitor applied. Initial assessment completed. Vital signs taken and recorded. NERY KEITH MD notified of admission to the unit. Orders received. See assessment for past medical history, medications and allergies. Patient and/or family oriented to unit. [facility]. Clothing/patient valuable form completed. JONATHAN GAITAN
[2018-09-16] MEDS ORDERED: AMLODIPINE BES2.5 MG PO (14:49)
[2018-09-16] MEDS ORDERED: DIPYRIDAMOLE25 MG PO (14:49)
--- NOTE | 2018-09-16 14:56 | NUR ---
ASSUMING CARE OF PATIENT AT THIS TIME. REPORT RECIEVED FROM JONATHAN HORN. PATIENT SITTING UP IN BED AT THIS TIME. DENIES ANY NEEDS OR COMPLAINTS. BED IS IN LOWEST POSITION WITH WHEELS LOCKED. CALL LIGHT IS WITHIN REACH. ENCOURAGED TO USE CALL LIGHT FOR NEEDS. WILL MONITOR.
--- NOTE | 2018-09-16 15:27 | NUR ---
SPOKE WITH DR SUBRAMANIAN. HE IS COVERING FOR DR ROMERO. HE STATED HE WILL SEE THE PATIENT IN THE MORNING.
[2018-09-17] VITALS: BP 119/58
[2018-09-17 08:06] VITALS: BP 126/58
[2018-09-17 12:00] VITALS: BP 117/57
--- NOTE | 2018-09-17 13:30 | NUR ---
PATIENT COMPLAINING OF GENERALIZED FEELING OF MALAISE AND CHEST PRESSURE. CHECKED BLOOD PRESSURE, PRESSURE 100/[address] WIGGINS. ORDERED TO HOLD ANY FURTHER ANTIHYPERTENSIVES. WILL CONTINUE TO MONITOR THE PATIENT. CALL LIGHT WITHIN REACH.
[2018-09-17 13:31] VITALS: BP 100/30
[2018-09-17 16:00] VITALS: BP 113/52
[2018-09-17 20:00] VITALS: BP 117/60
--- NOTE | 2018-09-17 23:00 | NUR ---
ASSUMED CARE FOR THIS PT AT THIS TIME. PT RESTING QUIETLY IN BED. CALL LIGHT IN REACH.
[2018-09-18] VITALS (9 sets, daily range): BP systolic 103–134; BP diastolic 38–63
--- NOTE | 2018-09-18 | NUR ---
DR. WIGGINS PHONE RE PT C/O BACK PAIN AND NO PRN'S AVAILABLE AT THIS TIME. T.O. RCVD FOR TYLENOL 650MG PO EVERY 4 HRS PRN PAIN.
--- NOTE | 2018-09-18 00:25 | NUR ---
PT MEDICATED W/TYLENOL FOR C/O BACK/CHEST DISCOMFORT 02/21. PT DESCRIBES TINGLING RADIATING DOWN ARMS. WILL MONITOR FOR EFFECTIVENESS. CALL LIGHT IN REACH.
--- NOTE | 2018-09-18 08:18 | NUR ---
HERE AND SPOKE WITH . PATIENT WILL BE NPO FOR BRONCH TODAY.
--- NOTE | 2018-09-18 08:48 | NUR ---
PATIENT TAKEN OFF FLOOR VIA CART FOR ADDED BRONCH.
--- NOTE | 2018-09-18 09:00 | NUR ---
Contract Administration Manager in to see patient. She is not currently in her room. Will follow up at a later time.
--- NOTE | 2018-09-18 10:45 | NUR ---
PATIENT RETURNED TO ROOM FROM SCHEDULED BRONCH.
--- NOTE | 2018-09-18 11:46 | NUR ---
Travel Assistant in to talk to patient. Patient states lives at home with her . There are 0 steps in the home. Physician: Dr. Rose Smith [facility]acy: [facility] Home health services: none Patient's level of ADLs: INDEPENDENT Patient has working utilities: yes DME: O2 @ 2L nc at HS, portable O2 tanks, nebulizer, bipap, O2 supplier [facility] Follow-up physician's appointment after d/c: she prefers to make her own follow up appt after discharge Does patient want to access PORTAL?: no Discharge plan discussed with patient. She lives at home with her . She is independent in her ADLs and ambulation. Discussed home health care services and she denies any home needs at this time. When medically stable she will be discharged to home. MADONNA GARCIA
--- NOTE | 2018-09-18 19:30 | NUR ---
PT AWAKE AND RESTING IN BED WHILE DOING HER BREATHING TREATMENT. REPORT RECIEVED FROM KORY TRAYLOR. PT STATES SHE IS NOT HAVING ANY PAIN AND IS FEELING MUCH BETTER THAN SHE WAS PREVIOUSLY. CALL LIGHT WITHIN REACH, WILL CONTINUE TO MONITOR.
--- NOTE | 2018-09-18 19:39 | NUR ---
24 HR CHART CHECK COMPLETE
[2018-09-19] VITALS: BP 120/67
--- NOTE | 2018-09-19 02:50 | NUR ---
PT ASLEEP IN BED. NO SYMPTOMS OF DISTRESS NOTED. WILL CONTINUE TO MONITOR.
[2018-09-19 08:00] VITALS: BP 110/80
[2018-09-19] MEDS ORDERED: CEFUROXIME AXE250 MG PO (08:24)
[2018-09-19] MEDS ORDERED: PREDNISONE5 MG PO (08:24)
--- NOTE | 2018-09-19 08:53 | NUR ---
PATIENT SITTING UP IN BED. VERY PLEASANT. NO COMPLAINTS AT THE TIME. BED IN LOWEST POSITION. CALL LIGHT WITHIN REACH. INÉS WADE.RCC
--- NOTE | 2018-09-19 10:11 | NUR ---
PATIENT REFUSED BATH. VERY PLEASANT. NO PAIN NOR COMPLAINTS AT THIS TIME. BED IN LOWEST POSITION. CALL LIGHT IN REACH. INÉS WADE.RCC
--- NOTE | 2018-09-19 11:43 | NUR ---
Discharge instructions reviewed with patient/family. Patient receptive and verbalizes understanding. Follow-up care arranged. Written instructions given to patient/family, iv d/c'd, site asymptomatic, heart monitor d/c'd Uma ARREGUIN
[2018-09-19 12:00] VITALS: BP 109/52
--- NOTE | 2018-09-19 12:30 | NUR ---
DISCAHRGED PT TO CAR VIA W/C IN CARE OF DAUGHTER, STUDENT ACCOMPANIED PT TO CAR, CONDITION STABLE ALDA JONES SPANDREWCC
--- NOTE | 2018-09-19 12:58 | NUR ---
[facility] Discharge instructions reviewed with patient/family. Patient receptive and verbalizes understanding. Follow-up care arranged. Written instructions given to patient/family. JONATHAN WATSON
[2018-09-19 13:08] LABS: ACID FAST SPEC PROCESSING Concentration (.)
[2018-11-01 11:04] LABS: ACID FAST CULTURE Negative (.)
== END 2018-09-19 12:58 | disposition home or self-care (01) | DRG 189 ==
LOC: ED 10:48 → EDHOLD 13:08 → 4E 13:08
PROVIDERS: Internal Medicine Critical Care Medicine; Nurse Practitioner Family; ADMIT Internal Medicine
PROC: 0BC58ZZ Extirpation of Matter from Right Middle Lobe Bronchus, Via Natural or Artificial Opening Endoscopic (ICD-10-PCS; principal; 2018-09-18)
PROC: 0BC98ZZ Extirpation of Matter from Lingula Bronchus, Via Natural or Artificial Opening Endoscopic (ICD-10-PCS; principal; 2018-09-18)
PROC: 0BC88ZZ Extirpation of Matter from Left Upper Lobe Bronchus, Via Natural or Artificial Opening Endoscopic (ICD-10-PCS; principal; 2018-09-18)
PROC: 0BC78ZZ Extirpation of Matter from Left Main Bronchus, Via Natural or Artificial Opening Endoscopic (ICD-10-PCS; principal; 2018-09-18)
PROC: 0BC38ZZ Extirpation of Matter from Right Main Bronchus, Via Natural or Artificial Opening Endoscopic (ICD-10-PCS; principal; 2018-09-18)
PROC: 0BCB8ZZ Extirpation of Matter from Left Lower Lobe Bronchus, Via Natural or Artificial Opening Endoscopic (ICD-10-PCS; principal; 2018-09-18)
PROC: 0BC68ZZ Extirpation of Matter from Right Lower Lobe Bronchus, Via Natural or Artificial Opening Endoscopic (ICD-10-PCS; principal; 2018-09-18)
PROC: 0BC28ZZ Extirpation of Matter from Carina, Via Natural or Artificial Opening Endoscopic (ICD-10-PCS; principal; 2018-09-18)
PROC: 0BC18ZZ Extirpation of Matter from Trachea, Via Natural or Artificial Opening Endoscopic (ICD-10-PCS; principal; 2018-09-18)
PROC: 0BC48ZZ Extirpation of Matter from Right Upper Lobe Bronchus, Via Natural or Artificial Opening Endoscopic (ICD-10-PCS; principal; 2018-09-18)
DX: J96.21 Acute and chronic respiratory failure with hypoxia (principal); J44.0 Chronic obstructive pulmonary disease with (acute) lower respiratory infection; T17.590A Other foreign object in bronchus causing asphyxiation, initial encounter; J44.1 Chronic obstructive pulmonary disease with (acute) exacerbation; J20.9 Acute bronchitis, unspecified; I25.10 Atherosclerotic heart disease of native coronary artery without angina pectoris; E11.9 Type 2 diabetes mellitus without complications; F17.210 Nicotine dependence, cigarettes, uncomplicated; E66.01 Morbid (severe) obesity due to excess calories; I10 Essential (primary) hypertension; E78.2 Mixed hyperlipidemia; R07.89 Other chest pain; G47.33 Obstructive sleep apnea (adult) (pediatric); K21.9 Gastro-esophageal reflux disease without esophagitis; X58.XXXA Exposure to other specified factors, initial encounter; Y93.89 Activity, other specified; Y92.89 Other specified places as the place of occurrence of the external cause; Y99.8 Other external cause status; Z87.440 Personal history of urinary (tract) infections; Z90.710 Acquired absence of both cervix and uterus; Z90.49 Acquired absence of other specified parts of digestive tract; Z98.51 Tubal ligation status; Z83.3 Family history of diabetes mellitus; Z80.0 Family history of malignant neoplasm of digestive organs; Z82.49 Family history of ischemic heart disease and other diseases of the circulatory system; Z86.73 Personal history of transient ischemic attack (TIA), and cerebral infarction without residual deficits; Z88.1 Allergy status to other antibiotic agents; Z88.5 Allergy status to narcotic agent; Z71.6 Tobacco abuse counseling; Z68.39 Body mass index [BMI] 39.0-39.9, adult

== ENCOUNTER 2018-12-28 16:04 | Inpatient (IN) | payer OTHER ==
[~2018-12-28] VITALS: Ht 165.1 cm; Wt 110.2 kg
--- NOTE | ~2018-12-28 | PR ---
[place], [place] PROGRESS NOTE NAME: KATHRINE REAGAN UNIT #: [id number] ROOM: 404 DOCTOR: ROMEL RAPP MDMANAV BIRTHDATE: [birth year] DOS: 12/31/2018 PULMONARY PROGRESS NOTE SUBJECTIVE: The patient was noted with increased cough, which remained nonproductive, only scant amount of green sputum expectoration was reported, shortness breath, which occurs with exertion. Denies symptoms of fever or chills. Denies symptoms of hemoptysis. She still requires the oxygen supplementation by nasal cannula for the medical management of acute respiratory failure. Denies symptoms of hematemesis or melena. Denies symptoms of headache or diplopia. Denies symptoms of nausea, vomiting, diarrhea, or any abdominal pain. Remaining systems were reviewed and they were noted all negative. OBJECTIVE: VITAL SIGNS: Normal temperature, respiratory rate is 20, heart rate is 63, and blood pressure is 130/59. Pulse oxygen saturation was recorded as 95% saturation on 4 liters nasal cannula. HEENT: Examination shows head was atraumatic. Eyes nonicterus. NECK: Supple. CARDIOVASCULAR SYSTEM: S1, S2 is audible. LUNGS: Noted without any crackles. Decreased breath sounds are noted generalized in the lungs bilaterally. ABDOMEN: Soft and obese. EXTREMITIES: Shows chronic obesity. MUSCULOSKELETAL: Without any acute deformities. IMAGING DATA: CT of the chest was completed yesterday, which was reviewed, does not show any evidence of pulmonary embolism. Interstitial infiltration with ground-glass opacity noted in the lungs bilaterally. IMPRESSION: 1. The patient with acute hypoxic respiratory failure with acute exacerbation of chronic obstructive pulmonary disease. 2. Ground-glass opacity in the lungs with interstitial involvement of the lungs secondary to either acute infection or tobacco related interstitial involvement with bronchiolitis remains in consideration. PLAN OF MANAGEMENT: She was assessed for therapeutic bronchoscopy that will be done tomorrow morning. Bronchodilator will be continued as previously. No changes in antibiotics. Usual care with other supportive therapy, plan of management with additional treatment change will be done based on progression of the illness. The CT scan also described as left adrenal nodule 2 x 1.5 cm in size. [place], [place] PROGRESS NOTE NAME: KATHRINE REAGAN UNIT #: [id number] ROOM: 404 DOCTOR: MANAV CARBALLO MD BIRTHDATE: [birth year] MANAV URENA MD CM:PNTRANS [id number] [id number] MANAV RAPP MD 01/15/19 0927 interface
--- NOTE | ~2018-12-28 | PR ---
[place], [place] PROGRESS NOTE NAME: KATHRINE REAGAN UNIT #: [id number] ROOM: 404 DOCTOR: NERY WIGGINS MD BIRTHDATE: [birth year] DOS: 01/01/2019 SUBJECTIVE: The patient is doing well, does not have any complaints, underwent a bronchoscopy today. OBJECTIVE: VITAL SIGNS: Graphic trend shows a pressure of 132/70, pulse of 76, respirations 14, afebrile. LUNGS: Diminished breath sounds. Scattered wheezes this morning. HEART: Regular. ABDOMEN: Obese. EXTREMITIES: Without any edema. ASSESSMENT AND PLAN: 1. Acute exacerbation of chronic obstructive pulmonary disease. 2. Hypoxic respiratory failure, status post bronchoscopy this morning. Bronch cultures are pending. 3. Benign hypertension, controlled. NERY WIGGINS MD CM:PNYONG 0910 [id number] NERY WIGGINS MD 01/01/19 2324 interface
--- NOTE | ~2018-12-28 | PR ---
[place], [place] PROGRESS NOTE NAME: KATHRINE REAGAN UNIT #: [id number] ROOM: 404 DOCTOR: MANAV CARBALLO MD BIRTHDATE: [birth year] DOS: 01/02/2019 PULMONARY ADDENDUM NOTE SUBJECTIVE: The patient was seen and examined at a [id number] encounter, history was confirmed. Physical examination performed. Labs were reviewed. Note done by the medical associate was approved. The patient has been noted reduction of the respiratory symptom after bronchoscopy, reduction of coughing and shortness of breath. Denies symptoms of chest pain, fever or chills. Denies symptoms of hemoptysis. OBJECTIVE: VITAL SIGNS: For the patient, which are recorded as normal temperature, respiratory rate 20, heart rate 80, blood pressure 125/68. The pulse oximetry was recorded on 3 liters nasal cannula 93% saturation. HEENT: Head was atraumatic. Eyes nonicterus. NECK: Supple. CARDIOVASCULAR: S1, S2 is audible. LUNGS: Without any wheezing or crackles. ABDOMEN: Soft, nontender. Bowel sounds present. EXTREMITIES: The patient without any acute edema. LABORATORY DATA: The Gram stain of the bronchial washings, few gram-negative bacilli, moderate epithelial cells, moderate white blood cells, few gram-positive cocci in pairs. The preliminary culture noted as normal alondra, final culture results were pending. IMPRESSION: Acute tracheobronchitis, exacerbation of chronic obstructive pulmonary disease and respiratory failure, responded gradually and improving with the current treatment. PLAN OF MANAGEMENT: No changes for the patient from pulmonary standpoint except recommendation of home discharge. Continue in the meantime other therapy, plan of management as in progress. Other usual care and plan of treatment and therapies. [place], [place] PROGRESS NOTE NAME: KATHRINE REAGAN UNIT #: [id number] ROOM: 404 DOCTOR: MANAV CARBALLO MD BIRTHDATE: [birth year] MANAV URENA MD CM:PNTRANS [id number] MANAV RAPP MD 01/15/19 0930 interface
--- NOTE | ~2018-12-28 | CON ---
[place], [place] REPORT OF CONSULTATION NAME: KATHRINE REAGAN UNIT #: [id number] ROOM: 404 DOCTOR: MANAV CARBALLO MD BIRTHDATE: [birth year] DOS: 12/30/2018 PULMONARY CONSULTATION, EVALUATION, AND MANAGEMENT REASON FOR CONSULTATION: For the assessment of the hypoxia and respiratory failure. HISTORY OF PRESENT ILLNESS: A 58-year-old white female, who came into the hospital to assess the patient swelling of her wrist. The patient stated that she has a previous cardiac catheterization done by the Cardiology Services few months ago. She was concerned about the swelling came into the Emergency Room. The patient came in to the Emergency Room. Her vital signs were assessed including the pulse oxygen saturation recorded as 85% at rest on room air. She has been admitted to the hospital for further assessment from date of 12/28/2018. The patient stated symptoms of shortness breath only occurs with exertion. Denies symptoms of chest pain. Denies symptoms of active cough or wheezing. Denies symptoms of hemoptysis. REVIEW OF SYSTEMS: CONSTITUTIONAL: Fatigue and tiredness reported. Denies symptoms of fever or chills. EYES: Denies any burning, redness, or tenderness. EARS, NOSE, THROAT SYMPTOMS: Denies sore throat, hoarseness, otalgia, or postnasal drainage. CARDIOVASCULAR: Denies angina pain, edema, or pain of the lower extremities. GASTROINTESTINAL: Denies dysphagia, nausea, vomiting, diarrhea, abdominal pain, hematemesis, melena, or hematochezia. SKIN: Denies lesions or rashes. CENTRAL NERVOUS SYSTEM: Denies dizziness, headache, diplopia or syncopal episodes. Remaining systems were reviewed. They were noted all negative. PAST MEDICAL HISTORY: Last admission in this hospital in 09/2018 was assessed by me on that admission. 1. The patient underwent therapy of bronchoscopy because nonresolving cough. She has not been seen in the office for further pulmonary assessment. 2. Essential hypertension. 3. Mixed hyperlipidemia. 4. Suspected obstructive sleep apnea disorder, needing additional assessment. 5. Type 2 diabetes mellitus. 6. Gastroesophageal reflux. 7. Past history of TIA. SOCIAL HISTORY: The patient is , has 2 children, lives at home. Smoking cigarettes since teenager half to a pack of cigarettes per day. Denies any alcohol use or illicit drug. PAST SURGICAL HISTORY: Reported as: 1. Cholecystectomy. [place], [place] REPORT OF CONSULTATION [facility]: [id number] UNIT #: [id number] ROOM: [facility] DOCTOR: MANAV CARBALLO MD BIRTHDATE: [birth year] 2. Complete hysterectomy. 3. Partial colectomy diverticulosis. 4. Left breast lumpectomy that was benign. 5. Therapeutic bronchoscopy in 09/2018. FAMILY HISTORY: The patient's father at 50 years with complication of myocardial infarction. Mother at 70 with complication colorectal cancer. CURRENT MEDICATIONS: Actively administered were Lasix, lisinopril, metformin, Lopid, aspirin, Solu-Medrol 30 mg b.i.d., DuoNeb q. 4 hours, IV Rocephin, and some other p.r.n. meds. DRUG ALLERGIES: The patient reported allergy: 1. QUINOLONE. 2. MORPHINE. 3. CIPROFLOXACIN. 4. METRONIDAZOLE. PHYSICAL EXAMINATION: GENERAL: A 58-year-old white female patient comfortably resting on the bed. Height of 5 feet 5 inches, weight of 243 pounds, BMI of 40. VITAL SIGNS: Noted as normal temperature, respiratory rate 18-16, heart rate 76-62, blood pressure 119/43-114/42. The pulse oxygen saturation recorded in the Emergency Room as 85% on 4 liters nasal cannula, 90%-96% saturation. HEENT: Examination shows head was atraumatic. Eyes nonicterus. NECK: Supple. CARDIOVASCULAR: S1, S2 is audible. LUNGS: Noted with decreased breaths sounds in the lungs bilaterally. There was no wheezing present at this time. ABDOMEN: Soft and nontender. Bowel sounds present. EXTREMITIES: Noted with chronic obesity. MUSCULOSKELETAL: Without any acute deformities. CENTRAL NERVOUS SYSTEM: Cranial nerves 2-12 intact. LABORATORY DATA: I assessed on this admission. Lactic acid 1.4 on 12/28/2018. On 12/28/2018, WBC count 11.7, hemoglobin and hematocrit normal, platelet count normal. CMP on 12/28/2018, glucose was 124, remaining CMP normal. Troponin of 3 sets noted negative in 24 hours of admission. Blood culture, no bacterial growth. Chest x-ray was noted mild hyperinflation without any acute pulmonary infiltration. The patient has x-ray of the left wrist was also done was noted as normal study. IMPRESSION: 1. The patient will be currently admitted to the hospital was noted with hypoxia and was noted on past admission on 09/2018 was also noted pulse ox 84%. Possibility of chronic hypoxic respiratory failure would be considered. 2. Chronic obstructive pulmonary disease. I am not sure if the patient does have an acute exacerbation with that. 3. Rule out other causes of hypoxia of cardiac origin and pulmonary origin. Rule out pulmonary embolus as a part of the assessment during this [place], [place] REPORT OF CONSULTATION NAME: KATHRINE REAGAN UNIT #: [id number] ROOM: 404 DOCTOR: MANAV CARBALLO MD BIRTHDATE: [birth year] hospitalization. 4. Chronic obesity with suspicion of obstructive sleep apnea disorder, required further assessment as an outpatient. 5. Chronic nicotine dependence was also known. PLAN OF MANAGEMENT: The patient has been ordered CT of the chest at this time, no changes in medication will be made. If the CT of the chest was noted negative and the echocardiogram, which is taken now reported would be noted negative, there was no shunting or other issue could be discharged home and to be followed as an outpatient. Counseling about tobacco cessation was done at the bedside. Other therapy and plan of treatment changes will be made based on the available data and further progression of the clinical illness. In the meantime, continue to titrate oxygen supplementation 92% or greater. Home oxygen assessment need to be made prior to discharge. Thanks for allowing me to participate in the care of this patient. MANAV URENA MD CM:CONSTR:REPORT OF CONSULTATION 1534 01/15/19 0925 interface
--- NOTE | ~2018-12-28 | DS ---
[place], [place] DISCHARGE SUMMARY NAME: KATHRINE REAGAN UNIT #: [id number] ROOM: 404 DOCTOR: NERY WIGGINS MD BIRTHDATE: [birth year] DOS: 01/02/2019 HOSPITAL COURSE: The patient is 58 years old, very well known to us, comes in with complaints of difficulty breathing. Please refer to H and P for details. After admission, the patient had a CT of the chest, which did not show any evidence of pneumonia, effusions, lymphadenopathy, aneurysms, pneumothorax or tumors. The patient also had blood cultures ordered, which came back negative. Dr. Cho was consulted, underwent a bronchoscopy. Bronchoscopy cultures were negative. The patient was treated with IV steroids, antibiotics, breathing treatments and oxygen supplementation. Assessment for home O2 has been ordered for continued oxygen supplementation at home. Echocardiogram showed normal LV function. She did complain of pain in the hand, x-ray was negative. Three sets of troponins were done, which were negative. The patient is overall stable and improved and has been encouraged to quit smoking. She does have prescription for Chantix at home, but refuses to take it. DISCHARGE MEDICATIONS: Ceftin 250 twice a day for 5 days, prednisone 5 b.i.d. for 10 days, DuoNeb q. 4 hours, oxygen continuous 2 liters, Lasix 20 daily, lisinopril 20 daily, metformin 250 daily, aspirin 81 daily, gemfibrozil 600 mg b.i.d., dipyridamole 25 mg daily. NERY WIGGINS MD CM:DISCHARG [id number] NERY WIGGINS MD 01/14/19 0742 interface
--- NOTE | ~2018-12-28 | PR ---
[place], [place] PROGRESS NOTE NAME: KATHRINE REAGAN UNIT #: [id number] ROOM: 404 DOCTOR: LYNSEY GEIGER MD BIRTHDATE: [birth year] DOS: 12/30/2018 SUBJECTIVE: The patient's breathing is still getting short of breath off and on. OBJECTIVE: VITAL SIGNS: Blood pressure 120/46, heart rate of 62 beats per minute, breathing 18-22 times per minute, temperature of 98.6 degrees Fahrenheit. GENERAL APPEARANCE: The patient is alert and oriented x 3, in no visible distress. HEENT AND NECK: Exam within normal limits. CARDIOVASCULAR SYSTEM: Heart rate is regular in rate and rhythm. S1 and S2 normally audible. LUNGS: Decreased breath sounds on lung auscultation. The patient is wearing oxygen by nasal cannula. ABDOMEN: Soft, nontender. No obvious organomegaly. Bowel sounds are present. EXTREMITIES: Without significant cyanosis or edema. IMPRESSION: 1. The patient with acute exacerbation of chronic obstructive pulmonary disease, being treated with corticosteroids, antibiotics, oxygen and breathing treatments and slowly improving. 2. Type 2 diabetes mellitus. Blood sugars being monitored and controlled. Blood sugars ranging between 100-190 mostly. 3. Coronary artery disease of the [place] vessels without chest pains. 4. Morbid obesity, BMI of 40.4. The patient working Dietary. LYNSEY GEIGER MD CM:PNTRANS [phone] LYNSEY GEIGER MD 12/30/182229 interface
--- NOTE | ~2018-12-28 | PR ---
[place], [place] PROGRESS NOTE NAME: KATHRINE REAGAN UNIT #: [id number] ROOM: 404 DOCTOR: MANAV CARBALLO MD BIRTHDATE: [birth year] DOS: 01/01/2019 PULMONARY PROGRESS NOTE SUBJECTIVE: The patient was noted to be comfortable at this time, resting on the bed. She has been still complaining of severe cough, which has been noted currently nonproductive. Denies symptoms of chest pain with that. Shortness of breath occurs with exertion. There was no wheezing reported. Denies symptoms of nausea, vomiting, diarrhea or any abdominal pain. The review of system otherwise completely noted negative. She is n.p.o. past midnight for the bronchoscopy to be done today. OBJECTIVE: VITAL SIGNS: For the patient this morning as a normal temperature, respiratory rate 14, heart rate 68, blood pressure 105/58. Pulse oxygen saturation on 4 liters nasal cannula was ranging between 90-93% saturation. HEENT: Examination shows head was atraumatic. Eyes nonicterus. NECK: Supple. CARDIOVASCULAR: S1, S2 audible. LUNGS: Decreased breath sounds in the lungs bilaterally. There was no wheezing or crackles. ABDOMEN: Soft and obese. EXTREMITIES: No acute edema. MUSCULOSKELETAL: Without any acute deformities. CENTRAL NERVOUS SYSTEM: Intact. IMPRESSION: The patient with persistent cough with acute exacerbation of chronic obstructive pulmonary disease, acute bronchitis with acute hypoxic respiratory failure. PLAN OF MANAGEMENT: Proceed with the fiberoptic bronchoscopy as planned. Any additional treatment changes for the patient necessary to be made to be done after the bronchoscopy. In the meantime, continue other plan of management care, plan of therapy and treatments. Usual care. [place], [place] PROGRESS NOTE NAME: KATHRINE REAGAN UNIT #: [id number] ROOM: 404 DOCTOR: MANAV CARBALLO MD BIRTHDATE: [birth year] MANAV URENA MD CM:PNTRANS 1258 [id number] MANAV RAPP MD 01/02/19 0024 interface
--- NOTE | ~2018-12-28 | WRIGHTHP ---
[place], [place] PATIENT HISTORY AND PHYSICAL EXAM NAME: KATHRINE REAGAN UNIT #: [id number] ROOM: 404 DOCTOR: NERY WIGGINS MD BIRTHDATE: [birth year] DOS: 12/28/2018 HISTORY OF PRESENT ILLNESS: The patient is 58 years old. The patient states that she had some numbness in her right hand and some swelling, so she decided to come into the Emergency Room. In the ER, she was noted to have hypoxemia with oxygen in the low 80s and she was admitted. She states that she does have some shortness of breath on any kind of exertion. Denies having any fever, chills, any chest pains, palpitations, does not have any abdominal pain, nausea, emesis. PAST MEDICAL HISTORY: Significant for: 1. COPD. 2. Continued nicotine abuse. 3. Benign hypertension. 4. Coronary artery disease. 5. Type 2 diabetes mellitus. 6. History of transient ischemic attack. 7. Type 2 diabetes mellitus also. MEDICATIONS: Aspirin 81, Persantine 25, lisinopril 20, hydrochlorothiazide 12.5, metformin 250. SOCIAL HISTORY: Smoker of about 1 pack of cigarettes a day. PHYSICAL EXAMINATION: VITAL SIGNS: Graphic trend shows a pressure of 137/61, pulse of 80, respirations 18, temperature 97.6. LUNGS: Diminished breath sounds. A few scattered rales at the bases. HEART: Regular. ABDOMEN: Obese. EXTREMITIES: Without any edema. Right hand, there is no abnormality detected. LABORATORY DATA: Blood sugar reading was 141 and 179. ASSESSMENT AND PLAN: 1. The patient who presents with increasing shortness of breath and hypoxic respiratory failure from underlying exacerbation of chronic obstructive pulmonary disease. She has been admitted. IV steroids and IV antibiotics have been ordered. Breathing treatments and oxygen supplementation. We will do a home O2 assessment. She uses oxygen at night only and we will see whether she would benefit from daytime oxygen, so exercise oximetry will be done this morning. 2. Type 2 diabetes mellitus, controlled. 3. Coronary artery disease. Last echocardiogram in 2017 and we will do another one to see whether there are any new changes. [place], [place] PATIENT HISTORY AND PHYSICAL EXAM NAME: KATHRINE REAGAN UNIT #: [id number] ROOM: 404 DOCTOR: NERY WIGGINS MD BIRTHDATE: [birth year] NERY WIGGINS MD CM:HISPHYS:PATIENT HISTORY AND PHYSICAL EXAMINATION 3 3 NERY WIGGINS MD 12/29/18903 interface
--- NOTE | ~2018-12-28 | EKG ---
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 : 1960 Requested By: ALIRIO RIVERA Order Number: [id number] Reading MD: Jess Brambila MD Measurements Intervals [place] Rate: 92 P: 49 [place]: 180 QRS: -12 QRSD: 77 T: 94 QT: 348 QTc: 431 Interpretive Statements Sinus rhythm Inferior infarct, old Anterior infarct, old Lateral leads are also involved Baseline wander in lead(s) III Compared to ECG 09/16/2018 17:08:53 Ventricular premature complex(es) no longer present Myocardial infarct finding still present Electronically Signed On 12-28-2018 15:53:34 PDT by Jess Brambila MD CM:EKGRPT:ELECTROCARDIOGRAM REPORT 1634 1553 ALIRIO MORALES DRAFT REPORT ALIRIO RIVERA MD
--- NOTE | ~2018-12-28 | EKG ---
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
--- NOTE | ~2018-12-28 | PROC NOTE ---
[place], [place] PROCEDURE NOTE NAME: KATHRINE REAGAN UNIT #: [id number] ROOM: 404 DOCTOR: ROMEL RAPP MD,MANAV BIRTHDATE: [birth year] DOS: 01/01/2019 PROCEDURE: Fiberoptic bronchoscopy. PREOPERATIVE DIAGNOSES: Severe cough, nonresolving with current maximal medical management. POSTOPERATIVE DIAGNOSES: Severe mucus impaction with ongoing acute tracheobronchitis noted in endobronchial tree bilaterally. No endobronchial obstructive lesions. PROCEDURE DESCRIPTION: Informed consent obtained with the patient. The patient was brought to the OR and placed in supine position. Conscious sedation was administered by the Anesthesia Department. After achieving appropriate sedation, airway introduced into the mouth. Bronchoscope advanced to the airway into laryngeal area. Epiglottis and vocal cords were seen. The vocal cord is moving symmetrically with the movements. The bronchoscope advanced to the vocal cords and tracheal lumen noted with copious amount of thick secretion, which noted mucoid mixed with purulent secretion suctioned to the jocy level with inflammatory changes of the mucosa. Jocy noted sharp after that. The right upper, right middle, right lower, left upper, lingular lower lobe bronchi were all examined. Similar changes noted in trachea with impaction of the mucus and endobronchial tree subsegments. All secretions suctioned out with the help of normal saline wash, sent for culture. Procedure well tolerated by the patient without any difficulty. Postoperative findings will be discussed with the patient once the patient recovered from the effects of acute sedation. MANAV URENA MD CM:PROCNOTE:PROCEDURE NOTE 1300 0024 MANAV RAPP MD
--- NOTE | ~2018-12-28 | PR ---
[place], [place] PROGRESS NOTE NAME: KATHRINE REAGAN UNIT #: [id number] ROOM: 404 DOCTOR: MONICA ALTAMIRANO DO BIRTHDATE: [birth year] DOS: 01/02/2019 SUBJECTIVE: Patient resting in bed at this time comfortably. The patient states that she feels a little bit better after her bronchoscopy. The patient states that she still has not been able to cough up very much. OBJECTIVE: VITAL SIGNS: Temperature is 98.2, pulse 80, respiratory rate 20, blood pressure 135/68, 93% on 3 liters by nasal cannula. HEENT: Normocephalic, atraumatic. Eyes nonicteric. NECK: Trachea is midline. Supple, nontender. CARDIOVASCULAR: S1, S2 audible, regular rate and rhythm. LUNGS: Decreased breath sounds bilaterally at the bases. There were no wheezes, crackles or rhonchi. ABDOMEN: Soft and obese. EXTREMITIES: No clubbing, cyanosis or edema. MUSCULOSKELETAL: No acute deformities. CENTRAL NERVOUS SYSTEM: No focal neurologic deficits. Cranial nerves 2-12 grossly intact. IMPRESSION: Chronic obstructive pulmonary disease exacerbation, acute bronchitis with acute hypoxic respiratory failure. PLAN: Continue current management. Continue DuoNebs. Continue Solu-Medrol 30 mg b.i.d., ceftriaxone 1 gram every day. Any other changes will be based on progression of illness. Sinan Altamirano DO MANAV URENA MD CM:DL [id number] MONICA ALTAMIRANO DO 01/03/19 0220 interface
--- NOTE | ~2018-12-28 | PR ---
[place], [place] PROGRESS NOTE NAME: KATHRINE REAGAN UNIT #: [id number] ROOM: 404 DOCTOR: LYNSEY GEIGER MD BIRTHDATE: [birth year] DOS: 12/31/2018 SUBJECTIVE: The patient's breathing continues to improve. Dr. Cho is also following. OBJECTIVE: VITAL SIGNS: Blood pressure 112/48, heart rate 84 beats per minute, breathing 20 times per minute, temperature 98.8 degrees Fahrenheit. GENERAL APPEARANCE: The patient is alert and oriented x 3, in no visible distress. HEENT AND NECK: Exam within normal limits. CARDIOVASCULAR SYSTEM: Heart rate is regular in rate and rhythm. S1 and S2 normally audible. LUNGS: Clear to auscultation. ABDOMEN: Soft, nontender. No obvious organomegaly. Bowel sounds are present. EXTREMITIES: Without significant cyanosis or edema. IMPRESSION AND PLAN: 1. Acute exacerbation of chronic obstructive pulmonary disease, continues to improve with treatment with antibiotics, corticosteroids, oxygen. Dr. Cho, the radiographer angiogram is also following. 2. Type 2 diabetes mellitus. Blood sugars are being monitored, treated and controlled. 3. Coronary artery disease of [place] vessels without chest pain. 4. Morbid obesity, BMI of 40.4. The patient working with dietary. LYNSEY GEIGER MD CM:PNTRANS [phone] LYNSEY GEIGER MD 01/01/19 0000 interface
--- NOTE | ~2018-12-28 | PR ---
[place], [place] PROGRESS NOTE NAME: KATHRINE REAGAN UNIT #: [id number] ROOM: 404 DOCTOR: NERY WIGGINS MD BIRTHDATE: [birth year] DOS: 01/01/2019 SUBJECTIVE: The patient is doing well, does not have any new complaints, underwent the bronchoscopy. DICTATION ENDS HERE NERY WIGGINS MD CM:PNTRANS [phone] NERY WIGGINS MD 01/02/19 0243 interface
--- NOTE | ~2018-12-28 | EKG ---
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
--- NOTE | ~2018-12-28 | PR ---
[place], [place] PROGRESS NOTE NAME: KATHRINE REAGAN UNIT #: [id number] ROOM: 404 DOCTOR: NERY WIGGINS MD BIRTHDATE: [birth year] DOS: 01/02/2019 SUBJECTIVE: The patient is doing well, does not have any new complaints. She has required oxygen during rest. She has exercised, but the pulse ox has dropped down to 89 requiring oxygen supplementation during daytime at home. OBJECTIVE: VITAL SIGNS: Graphic trend shows a pressure 125/68, pulse of 80, respirations 20, temperature 98.2. LUNGS: Diminished breath sounds. Clear. HEART: Regular. ABDOMEN: Obese, soft, nontender. EXTREMITIES: Without any edema. ASSESSMENT AND PLAN: 1. Acute exacerbation of chronic obstructive pulmonary disease, stable and improved. 2. Hypoxic respiratory failure, to qualify for oxygen supplementation at home assessment will be ordered today. 3. Bronchoscopy with negative cultures. 4. Continued nicotine abuse. The patient does have Chantix it at home, but refuses to use it. 5. Benign hypertension, controlled. The patient is going to be discharged to home today. NERY WIGGINS MD CM:PNTRANS 1 [phone] NERY WIGGINS MD 01/02/19 0843 interface
--- NOTE | ~2018-12-28 | EKG ---
[place], [place] ELECTROCARDIOGRAM REPORT NAME: KATHRINE REAGAN UNIT #: [id number] ROOM: 404 DOCTOR: ANDREW DRAFT REPORT BIRTHDATE: [birth year] [facility] Test Date: 2018-12-28 Test Time: 19:09:11 Pat Name: KATHRINE REAGAN Department: Room: 404 Gender: F Waredresser: Rodríguez Shea : 1960 Requested By: ALIRIO RIVERA Order Number: [id number] Reading MD: Jess Brambila MD Measurements Intervals [place] Rate: 82 P: 47 OR: 184 QRS: -14 QRSD: 81 T: 94 QT: 375 QTc: 438 Interpretive Statements Sinus rhythm Inferior infarct, old Anterior infarct, old Lateral leads are also involved Compared to ECG 12/28/2018 16:34:25 No significant changes Electronically Signed On 12-29-2018 13:35:29 PDT by Jess Brambila MD CM:EKGRPT:ELECTROCARDIOGRAM REPORT [id number] ALIRIO MORALES DRAFT REPORT ALIRIO RIVERA MD
[~2018-12-28 16:04] MED LIST changes: +AMLODIPINE BES2.5 MG PO; +CEFUROXIME AXE250 MG PO
[2018-12-28 17:15] LABS: BASO # 0.1 10*3/uL (0.0-0.1); BASO % 0.4 % (0.0-1.0); EOS # 0.1 10*3/uL (0.0-0.4); HEMATOCRIT 44.4 % (37.0-47.0); HEMOGLOBIN 14.2 g/dl (12.0-16.0); LYMPH # 2.2 10*3/uL (1.3-4.4); LYMPH % 18.7 % (27.0-41.0); MEAN CELL VOLUME 95.5 fl (81.0-99.0); MEAN CORPUSCULAR HGB 30.5 pg (27.0-31.0); MEAN PLATELET VOLUME 10.4 fl (9.6-12.3); MONO # 0.8 10*3/uL (0.1-1.0); MONO % 6.7 % (3.0-9.0); NEUT # 8.5 10*3/uL (2.3-7.9); NEUT % 72.7 % (47.0-73.0); PLATELET COUNT AUTOMATED 303 10*3/uL (130-400); RED BLOOD COUNT 4.65 10*6/uL (4.10-5.10); WHITE BLOOD COUNT 11.7 10*3/uL (4.8-10.8)
[2018-12-28 17:21] VITALS: BP 127/68
[2018-12-28 17:27] LABS: ACT PARTIAL THROMBO TIME 26.6 SECONDS (20.0-32.1); INTERNATIONAL NORM RATIO 0.9 (2.0-3.5)
[2018-12-28 17:31] LABS: ALBUMIN 3.6 gm/dl (3.1-4.5); ALKALINE PHOSPHATASE 70 U/L (45-117); BUN 14 mg/dl (7-24); CHLORIDE 103 mmol/L (98-107); CREATININE 0.79 mg/dL (0.55-1.02); POTASSIUM 3.9 mmol/L (3.5-5.1); SGOT/AST 12 IU/L (3-35); SGPT/ALT 17 U/L (12-78); SODIUM 142 mmol/L (136-145)
--- NOTE | 2018-12-28 17:32 | NUR ---
O2 INCREASED TO 4L FOR POX 88-89% ON 3L.
[2018-12-28 17:35] LABS: TROPONIN I < 0.015 ng/ml (<0.045)
--- NOTE | 2018-12-28 18:52 | NUR ---
MSADMTime: N A 58 year old FEMALE admitted to 4E under services of DR. FELICIANO LINN,NERY. Pt. arrived via wheel chair from ER. Chief complaint: NUMBNESS LT HAND, BURNS. JONATHAN WATSON
[2018-12-28 20:00] VITALS: BP 126/60
[2018-12-29] VITALS: BP 137/61
[2018-12-29 08:00] VITALS: BP 123/55
--- NOTE | 2018-12-29 09:40 | NUR ---
HOME O2 ASSESSMENT: PRE BP: 122/55, HR 98, RR 18, PULSE OX 89% ON ROOM AIR AT REST. AMBULATED PATIENT 8 FT, SAT DECREASED TO 84% ON ROOM AIR WHILE AMBULATING. PLACED 4 L/M ON PT, SAT SLOWLY INCREASED TO 92% WHILE AMBULATING. POST BP: 137/75, HR 98, RR 24, PULSE OX 94% ON 4 L/M AT REST. RN NOTIFIED.
--- NOTE | 2018-12-29 11:00 | NUR ---
Concrete Mixer Truck Driver in to talk to patient. Patient states lives at home with her . There are 0 steps in the home. Physician: Dr. Rose Smith Pharmacy: [facility] Home health services: none Patient's level of ADLs: INDEPENDENT Patient has working utilities: yes DME: O2 @ 2L [place] HS, portable tanks, O2 supplier [facility] Follow-up physician's appointment after d/c: she prefers to make her own follow up appt after discharge Does patient want to access PORTAL?: no Discharge plan discussed with patient and her daughter who is at the bedside. She lives at home with her . She is independent in her ADLs and ambulation. Discussed home health care services and she denies any home needs at this time. When medically stable she will be discharged to home. MADONNA GARCIA
--- NOTE | 2018-12-29 11:22 | NUR ---
Spoke to Dr. Smith regarding patient's request for an x-ray of her left hand. New orders received.
--- NOTE | 2018-12-29 11:56 | NUR ---
Spoke to Dr. Smith. New orders received for Dr. Cho consult per patient and daughter's request.
--- NOTE | 2018-12-29 11:58 | NUR ---
Notified patient new orders from Dr. Smith for Dr. Cho consult and x-ray of left hand. Pt verbalized an understanding.
[2018-12-29 12:00] VITALS: BP 111/62
--- NOTE | 2018-12-29 13:40 | NUR ---
DR. URENA AWARE OF CONSULT.
[2018-12-29 16:00] VITALS: BP 100/58
--- NOTE | 2018-12-29 19:06 | NUR ---
PATIENT RESTING IN BED WITH EYES CLOSED AT THIS TIME. RESPIRATIONS ARE EASY AND REGULAR. NO DISTRESS IS NOTED. BED IS IN LOWEST POSITION WITH WHEELS LOCKED. SIDE RAILS UP X2. IV FLUIDS INFUSING INTO RIGHT ARM. CALL LIGHT IS WITHIN REACH. WILL CONTINUE TO MONITOR.
--- NOTE | 2018-12-29 19:12 | NUR ---
SITTING UP IN BED USING TABLET. O2 IN USE VIA NC. DENIES ANY NEEDS OR COMPLAINTS AT THIS TIME. BED IS IN LOWEST POSITION WITH WHEELS LOCKED. SIDE RAILS UP X2. CALL LIGHT IS WITHIN REACH. ENCOURAGED TO USE CALL LIGHT FOR NEEDS. WILL MONITOR.
[2018-12-29 20:00] VITALS: BP 114/42
[2018-12-30] VITALS: BP 106/52
[2018-12-30 08:00] VITALS: BP 119/46
[2018-12-30 16:16] VITALS: BP 113/52
--- NOTE | 2018-12-30 19:29 | NUR ---
PATIENT AWAKE SITTING UP IN BED. BREATHING TX IN USE. PATIENT DENIES ANY NEEDS AT PRESENT TIME. WILL MONITOR. CALL LIGHT LEFT IN REACH.
[2018-12-31] VITALS: BP 112/53
[2018-12-31 08:00] VITALS: BP 130/59
[2018-12-31 16:00] VITALS: BP 112/48
--- NOTE | 2018-12-31 21:15 | NUR ---
PATIENT'S DAUGHTER MARCO CALLED IN AND HAD PASSCODE. UPDATED ON PLAN OF CARE. ALL QUESTIONS ANSWERED BY RN. CALL BACK NUMBER TO NURSES STATION LEFT WITH MARCO.
[2019-01-01] VITALS (9 sets, daily range): BP systolic 105–134; BP diastolic 50–80
--- NOTE | 2019-01-01 03:19 | NUR ---
PATIENT ASLEEP IN BED. RESPIRATIONS EASY. NO S/S OF DISTRESS NOTED.
--- NOTE | 2019-01-01 07:49 | NUR ---
PATIENT TO OR FOR BRONCH.
--- NOTE | 2019-01-01 09:00 | NUR ---
Parboiler in to see patient. She is sitting up in her bed without distress noted eating breakfast. No new needs or request at this time. She states the bronchoscopy has loosened the stuff up in her chest. She denies any home needs. When medically stable she will be discharged to home.
[2019-01-02] VITALS: BP 111/62
--- NOTE | 2019-01-02 01:15 | NUR ---
PATIENT ASLEEP IN BED. RESPIRATIONS EASY. NO S/S OF DISTRESS NOTED. O2 IN USE VIA 3L NC. WILL MONITOR. CALL LIGHT IN REACH.
--- NOTE | 2019-01-02 04:52 | NUR ---
PATIENT DENIES ANY NEEDS AT THIS TIME. WILL MONITOR. CALL LIGHT IN REACH.
[2019-01-02 08:00] VITALS: BP 125/68
[2019-01-02] MEDS ORDERED: PREDNISONE5 MG PO (08:24)
[2019-01-02] MEDS ORDERED: LISINOPRIL20 MG PO (08:24)
[2019-01-02] MEDS ORDERED: FUROSEMIDE20 M1 PO (08:24)
[2019-01-02] MEDS ORDERED: CEFUROXIME AXE250 MG PO (08:24)
--- NOTE | 2019-01-02 09:00 | NUR ---
Critical Care Registered Nurse in to see patient. No new needs or request at this time. She is being discharged and is anxious to get home to shower and watch her own TV. She denies any home needs.
--- NOTE | 2019-01-02 09:34 | NUR ---
patient was tested for home oxygen use. patient already has oxygen at home for use at night at 2lnc. during ambulation at room air patient didnt show any obivious signs of shortness of breath. during test patient dropped to 86% on room air. placed patient on 2l nasal cannula. patient was able to maintain at 92% on the 2L nasal cannula.
--- NOTE | 2019-01-02 11:21 | NUR ---
PATIENT DISCHARGED TO HOME WITH BELONGINGS. AWAITING FOR RIDE.
[2019-01-02 15:09] LABS: ACID FAST SPEC PROCESSING Concentration (.)
[2019-01-25 17:05] LABS: ACID FAST CULTURE Positive (.); M AVIUM COMPLEX Positive (.); M GORDONAE Not Indicated (.); M KANSASII Not Indicated (.); M TUBERCULOSIS COMPLEX Negative (.)
== END 2019-01-02 11:21 | disposition home or self-care (01) | DRG 189 ==
LOC: ED 16:04 → 4E 17:33 → EDHOLD 17:33 → 4E 18:14
PROVIDERS: Emergency Medicine; Internal Medicine Critical Care Medicine; ADMIT Internal Medicine
PROC: 0BC48ZZ Extirpation of Matter from Right Upper Lobe Bronchus, Via Natural or Artificial Opening Endoscopic (ICD-10-PCS; principal; 2019-01-01)
PROC: 0BC88ZZ Extirpation of Matter from Left Upper Lobe Bronchus, Via Natural or Artificial Opening Endoscopic (ICD-10-PCS; principal; 2019-01-01)
PROC: 0BC78ZZ Extirpation of Matter from Left Main Bronchus, Via Natural or Artificial Opening Endoscopic (ICD-10-PCS; principal; 2019-01-01)
PROC: 0BC38ZZ Extirpation of Matter from Right Main Bronchus, Via Natural or Artificial Opening Endoscopic (ICD-10-PCS; principal; 2019-01-01)
PROC: 0BC98ZZ Extirpation of Matter from Lingula Bronchus, Via Natural or Artificial Opening Endoscopic (ICD-10-PCS; principal; 2019-01-01)
PROC: 0BC58ZZ Extirpation of Matter from Right Middle Lobe Bronchus, Via Natural or Artificial Opening Endoscopic (ICD-10-PCS; principal; 2019-01-01)
PROC: 0BC68ZZ Extirpation of Matter from Right Lower Lobe Bronchus, Via Natural or Artificial Opening Endoscopic (ICD-10-PCS; principal; 2019-01-01)
PROC: 0BC18ZZ Extirpation of Matter from Trachea, Via Natural or Artificial Opening Endoscopic (ICD-10-PCS; principal; 2019-01-01)
PROC: 0BCB8ZZ Extirpation of Matter from Left Lower Lobe Bronchus, Via Natural or Artificial Opening Endoscopic (ICD-10-PCS; principal; 2019-01-01)
DX: J96.01 Acute respiratory failure with hypoxia (principal); J44.1 Chronic obstructive pulmonary disease with (acute) exacerbation; J44.0 Chronic obstructive pulmonary disease with (acute) lower respiratory infection; T17.590A Other foreign object in bronchus causing asphyxiation, initial encounter; Z68.41 Body mass index [BMI] 40.0-44.9, adult; I10 Essential (primary) hypertension; E11.9 Type 2 diabetes mellitus without complications; J20.9 Acute bronchitis, unspecified; I25.10 Atherosclerotic heart disease of native coronary artery without angina pectoris; E27.8 Other specified disorders of adrenal gland; E66.01 Morbid (severe) obesity due to excess calories; E78.2 Mixed hyperlipidemia; K21.9 Gastro-esophageal reflux disease without esophagitis; F17.210 Nicotine dependence, cigarettes, uncomplicated; X58.XXXA Exposure to other specified factors, initial encounter; Y93.89 Activity, other specified; Y92.89 Other specified places as the place of occurrence of the external cause; Y99.8 Other external cause status; Z88.1 Allergy status to other antibiotic agents; Z88.5 Allergy status to narcotic agent; Z87.440 Personal history of urinary (tract) infections; Z90.49 Acquired absence of other specified parts of digestive tract; Z98.51 Tubal ligation status; Z90.710 Acquired absence of both cervix and uterus; Z82.49 Family history of ischemic heart disease and other diseases of the circulatory system; Z83.3 Family history of diabetes mellitus; Z86.73 Personal history of transient ischemic attack (TIA), and cerebral infarction without residual deficits; Z80.0 Family history of malignant neoplasm of digestive organs; Z71.6 Tobacco abuse counseling

== ENCOUNTER → 2019-02-21 | Outpatient (CLI) | payer OTHER ==
[~2019-02-21] MED LIST changes: +FUROSEMIDE20 M1 PO
== END | disposition home or self-care (01) ==
LOC: MAMMO 02-06 13:00 → RAD 02-06 13:30
DX: Z12.31 Encounter for screening mammogram for malignant neoplasm of breast (principal); Z13.820 Encounter for screening for osteoporosis; N95.9 Unspecified menopausal and perimenopausal disorder; R29.890 Loss of height; Z90.710 Acquired absence of both cervix and uterus

== ENCOUNTER 2019-05-08 11:18 | Inpatient (IN) | payer OTHER ==
[~2019-05-08] VITALS: Ht 167.6 cm; Wt 112.9 kg
[2019-05-08 12:15] LABS: BASO # 0.1 10*3/uL (0.0-0.1); BASO % 0.5 % (0.0-1.0); EOS # 0.1 10*3/uL (0.0-0.4); EOS % 1.2 % (1.0-4.0); HEMOGLOBIN 14.4 g/dl (12.0-16.0); LYMPH # 2.1 10*3/uL (1.3-4.4); LYMPH % 20.9 % (27.0-41.0); MEAN CELL VOLUME 96.2 fl (81.0-99.0); MEAN CORPUSCULAR HGB 30.1 pg (27.0-31.0); MEAN CORPUSCULAR HGB CONC 31.3 g/dl (33.0-37.0); MEAN PLATELET VOLUME 10.4 fl (9.6-12.3); MONO # 0.7 10*3/uL (0.1-1.0); MONO % 6.4 % (3.0-9.0); NEUT # 7.2 10*3/uL (2.3-7.9); NEUT % 70.5 % (47.0-73.0); PLATELET COUNT AUTOMATED 294 10*3/uL (130-400); RED BLOOD COUNT 4.78 10*6/uL (4.10-5.10); RED CELL DISTRI WIDTH 14.2 % (0-14.5); WHITE BLOOD COUNT 10.3 10*3/uL (4.8-10.8)
[2019-05-08 12:29] VITALS: BP 120/65
[2019-05-08 12:32] LABS: INTERNATIONAL NORM RATIO 0.9 (2.0-3.5)
[2019-05-08 12:34] LABS: ALBUMIN 3.8 gm/dl (3.1-4.5); ALKALINE PHOSPHATASE 71 U/L (45-117); BUN 9 mg/dl (7-24); CHLORIDE 99 mmol/L (98-107); CREATININE 0.55 mg/dL (0.55-1.02); SGOT/AST 10 IU/L (3-35); SGPT/ALT 16 U/L (12-78); SODIUM 136 mmol/L (136-145); TOTAL PROTEIN 7.5 gm/dL (6.4-8.2)
[2019-05-08 12:42] LABS: TROPONIN I < 0.015 ng/ml (<0.045)
--- NOTE | 2019-05-08 13:04 | NUR ---
PT DENIES HAVING ANY WOUNDS
[2019-05-08 13:15] VITALS: BP 116/91
--- NOTE | 2019-05-08 13:15 | NUR ---
A 59, admitted to 4E, under the services of Dr. FELY LINN,LYNSEY Zhao with a diagnosis of COPD EXACERBATION. Chief complaint is SOB. Patient arrived via bed from ER. Monitor applied. Initial assessment completed. Vital signs taken and recorded. DR. FELY LINN,LYNSEY Zhao notified of admission to the unit. Orders received. See assessment for past medical history, medications and allergies. Patient and/or family oriented to unit. Clothing/patient valuable form completed. KENDELL DERAS
[2019-05-08] MEDS ORDERED: ZESTORETIC 20-1 EACH PO (13:22)
--- NOTE | 2019-05-08 14:35 | NUR ---
CALLED ASKED FOR ADMISSION ORDERS. ORDERS IN PLACE PER WISHES.
[2019-05-08 16:00] VITALS: BP 124/62
--- NOTE | 2019-05-08 16:10 | NUR ---
FLU VACCINE GIVEN IM IN THE RIGHT DELTOID.
[2019-05-08 20:00] VITALS: BP 127/65
--- NOTE | 2019-05-08 20:16 | NUR ---
DR. URENA MADE AWARE OF CONSULT. PATIENT INFORMATION GIVEN. NO NEW ORDERS AT THIS TIME.
[2019-05-09] VITALS: BP 145/58
--- NOTE | 2019-05-09 00:48 | NUR ---
PATIENT RECEIVED TYLENOL FOR HEADACHE RATED 5/10.
--- NOTE | 2019-05-09 07:10 | NUR ---
ARRIVED ON SHIFT, INTRODUCED TO PATIENT, BEDSIDE REPORT RECEIVED, NO NEEDS VOICED AT THIS TIME, WHITEBOARD UPDATED.
--- NOTE | 2019-05-09 07:29 | NUR ---
Shift chart check completed.
[2019-05-09 08:00] VITALS: BP 120/70
--- NOTE | 2019-05-09 09:00 | NUR ---
Automatic Riveting Machine Operator in to talk to patient. Patient states lives at home with her . There are 0 steps in the home. Physician: Dr. Rose Smith [facility] Home health services: none Patient's level of ADLs: INDEPENDENT Patient has working utilities: yes DME: O2 @ 2L [place] HS, portable O2 tanks, O2 supplier [facility] [place] Follow-up physician's appointment after d/c: she prefers to make her own follow up appt after discharge Does patient want to access PORTAL?: no Discharge plan discussed with patient. She lives at home with her . She is independent in her ADLs and ambulation. Discussed home health care services and she denies any home needs at this time. When medically stable she will be discharged to home. Her or daughter will provide transportation on discharge. MADONNA GARCIA
[2019-05-09 12:00] VITALS: BP 123/63
--- NOTE | 2019-05-09 12:26 | NUR ---
CALL PLACED TO DR. JESUS, PER DAUGHTERS REQUEST. DAUGHTER WANTING A1C AND LIPIDS DUE TO PATIENT BEING ON MEDICATION FOR DIABETES AND CHOLESTEROL, ORDERES RECEIVED FOR A1C AND LIPID PANEL.
--- NOTE | 2019-05-09 14:25 | NUR ---
PATIENT C/O OF HEADACHE MEDICARED WITH TYLENOL ORDERED PRN.
[2019-05-09 14:40] LABS: CHOLESTEROL 148 mg/dL (<200); HDL CHOLESTEROL 38 mg/dl (40-60); LDL CHOLESTEROL 84 mg/dL (9-159); TRIGLYCERIDES 132 mg/dl (<150); VLDL CHOLESTEROL 26 mg/dL (6-40)
[2019-05-09 16:00] VITALS: BP 126/61
--- NOTE | 2019-05-09 19:00 | NUR ---
OBTAINED PATIENT AT THIS TIME. CARDIZEM GTT FLOWING AT 15CC/HR, HR IRREGULAR PER CM LOW 100-120'S. WILL CONTINUE TO MONITOR
[2019-05-09 20:00] VITALS: BP 123/56
--- NOTE | 2019-05-09 20:23 | NUR ---
PATIENT MEDICATION WITH TYLENOL FOR C/O 5/10 BACK PAIN. WILL MONITOR
--- NOTE | 2019-05-09 21:23 | NUR ---
TYLENOL EFFECTIVE FOR BACK PAIN.
--- NOTE | 2019-05-09 23:50 | NUR ---
PATIENT FOUND WITH POX 81%. NASAL CANNULA IN NOSE, BUT DISCONNECTED FROM O2 SOURCE. PATIENT DENIES FEELING SOB. O2 CONNECTED & REAPPLIED AT 4L NC. PATIENT CAME UP TO 94% VERY QUICKLY. POX 93% ON 3.5L NC. RESPIRATORY CALLED TO ROOM. PT DENIES ANY NEW/WORSENING SYMPTOMS AT THIS TIME. WILL CONTINUE TO MONITOR. CALL LIGHT IN REACH.
[2019-05-10] VITALS: BP 116/58
--- NOTE | 2019-05-10 00:33 | NUR ---
PT ASLEEP IN BED, NO S/S OF DISTRESS NOTED. O2 IN USE @ 3L NC. HOB ELEVATED. WILL MONITOR. CALL LIGHT IN REACH.
--- NOTE | 2019-05-10 05:31 | NUR ---
PT WISHING TO WAIT UNTIL CLOSER TO BREAKFAST FOR METFORMIN. METFORMIN LOCKED IN [facility].
[2019-05-10 08:00] VITALS: BP 122/62
--- NOTE | 2019-05-10 09:00 | NUR ---
Scientific Informatics Project Leader in to see patient. No new needs or request at this time. She denies any home needs. When medically stable she will be discharged to home.
[2019-05-10 12:00] VITALS: BP 126/63; BP 130/69
[2019-05-10 16:00] VITALS: BP 119/66
--- NOTE | 2019-05-10 19:33 | NUR ---
PATIENT MEDICATED WITH TYLENOL FOR C/O BACK PAIN. WILL MONITOR.
[2019-05-10 20:00] VITALS: BP 122/58
--- NOTE | 2019-05-10 20:33 | NUR ---
TYLENOL EFFECTIVE FOR BACK PAIN
[2019-05-11] VITALS (9 sets, daily range): BP systolic 108–141; BP diastolic 52–80
--- NOTE | 2019-05-11 02:40 | NUR ---
TYLENOL GIVEN FOR C/O BILAT RIB PAIN. DRY, HARSH COUGH NOTED AT THIS TIME. CALL LIGHT IN REACH. WILL MONITOR.
--- NOTE | 2019-05-11 11:00 | NUR ---
WHEN PATIENT RETURNED TO FLOOR FROM SURGERY, I WAS INFORMED THAT THE PATIENT IS MISSING A TOOTH. PATIENT STATES SHE HAD A BROKEN TOOTH WHEN SHE WENT FOR HER BRONCH AND SHE NOTICED THAT IT WAS MISSING NOW. TOOTH IS MISSING FROM L SIDE OF HER MOUTH. SURGERY, NURSING WAREHOUSE ASSOCIATE DRIVER EMMANUEL HORN, AND DR. VILLALOBOS WERE ALL NOTIFIED. PT DENIES PAIN ASSOCIATED WITH THE MISSING TOOTH. WILL CONTINUE TO MONITOR.
--- NOTE | 2019-05-11 14:30 | NUR ---
I was notified the patient lost a tooth post bronchoscopy in surgery. I spoke with the patient in her room who stated that her tooth was brown, rotten and just a nub. She stated when respiratory placed the tube in her mouth for her breathing treatment that her tooth fell out. She was unable to retrieve her tooth but it was in poor condition and was ready to fall out. Dr Patel was notified and stated this was not a problem, the tooth was in poor condition.
--- NOTE | 2019-05-11 20:42 | NUR ---
TYLENOL GIVEN FOR C/O RIB PAIN "FROM COUGHING". CALL LIGHT IN REACH.
--- NOTE | 2019-05-11 21:36 | NUR ---
SLEEPING, RESPERS EASY, REGUALR. NO SXS OF DISTRESS. CALL LIGHT IN REACH. TYLENOL SEEMS TO BE EFFECTIVE.
[2019-05-12] VITALS: BP 111/68
--- NOTE | 2019-05-12 03:51 | NUR ---
SLEEPING, NSR 60s PER CM. TYLENOL SEEMS EFFECTIVE. CALL LIGHT IN REACH.
--- NOTE | 2019-05-12 06:07 | NUR ---
AWAKE AT TIME OF BSG CHECK. BSG 114. NO COMPLAINTS VOICED. CALL LIGHT WITHIN REACH.
[2019-05-12 06:13] LABS: BASO % 0.2 % (0.0-1.0); HEMATOCRIT 41.8 % (37.0-47.0); HEMOGLOBIN 12.9 g/dl (12.0-16.0); LYMPH # 1.7 10*3/uL (1.3-4.4); LYMPH % 13.8 % (27.0-41.0); MEAN CELL VOLUME 95.2 fl (81.0-99.0); MEAN CORPUSCULAR HGB 29.4 pg (27.0-31.0); MEAN CORPUSCULAR HGB CONC 30.9 g/dl (33.0-37.0); MEAN PLATELET VOLUME 10.4 fl (9.6-12.3); MONO # 0.6 10*3/uL (0.1-1.0); MONO % 5.1 % (3.0-9.0); NEUT % 80.4 % (47.0-73.0); PLATELET COUNT AUTOMATED 304 10*3/uL (130-400); RED BLOOD COUNT 4.39 10*6/uL (4.10-5.10); RED CELL DISTRI WIDTH 14.1 % (0-14.5); WHITE BLOOD COUNT 12.4 10*3/uL (4.8-10.8)
[2019-05-12 06:37] LABS: CREATININE 0.52 mg/dL (0.55-1.02)
[2019-05-12 08:00] VITALS: BP 134/66
--- NOTE | 2019-05-12 08:00 | NUR ---
BEDSIDE REPORT RECIEVED FROM LALITA HORN. NO S/S OF DISTRESS OR PAIN AT THIS TIME. WILL CONTINUE TO MONITOR.
--- NOTE | 2019-05-12 09:30 | NUR ---
IN TO ROOM. PT AWAKE, ALERT AND ORIENTED. PLEASANT AND COOPERATIVE WITH ASSESSMENT AND CARE. NO STATED COMPLAINTS, DENIES PAIN AT THIS TIME. RESPIRATIONS EASY AND REGULAR. HARSH COUGH NOTED. PT STATES IT IS WORSE THAN YESTERDAY. EDUCATED PROVIDED ABOUT SMOKING CESSATION. BED IN LOWEST LOCKED POSITION AND CALL LIGHT WITHIN REACH.
--- NOTE | 2019-05-12 10:48 | NUR ---
PT REQUESTED AND RECIEVED PRN TYLENOL. WILL MONITOR FOR EFFECTIVENESS.
[2019-05-12 12:00] VITALS: BP 138/71
[2019-05-12 14:06] LABS: ACID FAST SPEC PROCESSING Concentration (.)
[2019-05-12 16:00] VITALS: BP 113/48
[2019-05-12 20:00] VITALS: BP 123/51
--- NOTE | 2019-05-12 20:55 | NUR ---
PT C/O RIB PAIN FROM COUGHING TOO HARD. MEDICATED WITH PRN TYLENOL WITH CHECK EFFECTIVENESS. CALL LIGHT WITHIN REACH.
--- NOTE | 2019-05-12 21:50 | NUR ---
PT STATES TYLENOL WAS EFFECTIVE. CALL LIGHT WITHIN REACH. WILL CONTINUE TO MONITOR.
[2019-05-13] VITALS: BP 123/66
--- NOTE | 2019-05-13 04:00 | NUR ---
TYLENOL GIVEN FOR C/O RIB PAIN FROM COUGHING. CALL LIGHT WITHIN REACH. WILL MONITOR.
--- NOTE | 2019-05-13 04:22 | NUR ---
NOTIFIED DR WIGGINS OF 6 BEAT RUN OF [facility]. EKG ORDERED PER POLICY. ORDERS FOR MAGNESIUM LAB RECEIVED. WILL CONTINUE TO MONITOR. PT RESTING IN BED. VSS.
--- NOTE | 2019-05-13 05:00 | NUR ---
PT SLEEPING. NO SIGNS OF DISTESS. TYLENOL SEEMS TO BE EFFECTIVE. CALL LIGHT WITHIN REACH. WILL MONITOR.
[2019-05-13 08:00] VITALS: BP 118/58
--- NOTE | 2019-05-13 08:00 | NUR ---
PT RESTING IN BED, O2 INTACT AT 2L NC, LUNGS DIMINISHED, BUT CLEAR. NO DISTRESS NOTED, PT DENIES ANY COMPLAINTS AT THIS TIME. CALL LIGHT WITHIN REACH.
[2019-05-13 08:19] LABS: BUN 19 mg/dl (7-24); CHLORIDE 103 mmol/L (98-107); CREATININE 0.52 mg/dL (0.55-1.02); POTASSIUM 4.2 mmol/L (3.5-5.1); SODIUM 139 mmol/L (136-145)
--- NOTE | 2019-05-13 09:21 | NUR ---
DR URENA IN TO SEE PT AT THIS TIME.
[2019-05-13 12:00] VITALS: BP 122/56
--- NOTE | 2019-05-13 15:30 | NUR ---
UPON READING DR URENA PROGRESS NOTE, FOUND WHERE CARDIOLOGY WAS TO BE CONSULTED PER DR WIGGINS, SPOKE WITH DR WIGGINS. STATES TO CONSULT DR ROMERO REGARDING 6 BEAT RUN VTACH FROM LAST NIGHT.
--- NOTE | 2019-05-13 15:32 | NUR ---
CALL PLACED TO DR ROMERO'S ANSWERING SERVICE, STATES DR VILLASENOR IS COVERING. ORDERS RECEIVED.
[2019-05-13 16:00] VITALS: BP 117/48
[2019-05-13 20:00] VITALS: BP 121/58
--- NOTE | 2019-05-13 21:51 | NUR ---
SPOKE WITH DR. SUBRAMANIAN ABOUT PATIENTS VTACH AND HEART RHYTHM. HE STATED TO D/C THE COREG THAT PATIENT DID NOT NEED TO BE ON IT. HE REVIEWED THE PATIENTS LAST ECHO FROM DECEMBER AND IT HAD A PERFECT READING.
[2019-05-14] VITALS: BP 117/54
--- NOTE | 2019-05-14 07:07 | NUR ---
DR. ROMERO PAGED AT THIS TIME TO NOTIFY OF CONSULT PER REQUEST OF DR. VILLASENOR
--- NOTE | 2019-05-14 07:24 | NUR ---
DR. ROMERO NOTIFIED OF CONSULT
[2019-05-14 08:00] VITALS: BP 113/63
--- NOTE | 2019-05-14 09:00 | NUR ---
High School Science Teacher in to see patient. No new needs or request at this time. She denies any home needs. Discussed discharge planning with Dr. Patel. Awaiting Dr. Hollis's input of 6 beat run of V-Tach. When medically stable she will be discharged to home.
[2019-05-14 12:00] VITALS: BP 117/53
--- NOTE | 2019-05-14 12:29 | NUR ---
SPOKE WITH DR. GEIGER PATIENT STATED THAT DR. GEIGER WOULD DISCHARGE HER TODAY. SPOKE WITH DR. GEIGER AND HE STATED THAT SHE IS NOT TO BE DISCHARGED YET SHE HAD THE VTACH RUN AND HE WILL DISCHARGE HER TOMORROW.
--- NOTE | 2019-05-14 15:15 | NUR ---
PATIENT UP IN [place], WALKING. NO COMPLAINTS AT THIS TIME. VSS. HR IN THE 60S. WILL CONTINUE TO MONITOR.
[2019-05-14 16:00] VITALS: BP 126/55
--- NOTE | 2019-05-14 17:10 | NUR ---
PATIENT UP IN CHAIR, WAITING ON DINNER. VOICES NO COMPLAINTS AT THIS TIME. CALL LIGHT WITHIIN REACH. WILL CONTINUE TO MONITOR.
--- NOTE | 2019-05-14 19:30 | NUR ---
Patient resting quietly with no c/o discomfort. Respirations easy and regular. Vital signs stable. No overt distress. AYLIN BARCENAS
[2019-05-14 20:00] VITALS: BP 118/49
--- NOTE | 2019-05-14 23:00 | NUR ---
Patient sleeping in bed. Respirations easy and unlabored. Call light within reach.
--- NOTE | 2019-05-14 23:56 | NUR ---
24 HR chart check completed.
[2019-05-15] VITALS: BP 108/55
[2019-05-15 07:36] LABS: BASO % 0.2 % (0.0-1.0); EOS # 0.1 10*3/uL (0.0-0.4); EOS % 0.4 % (1.0-4.0); HEMATOCRIT 41.5 % (37.0-47.0); HEMOGLOBIN 13.2 g/dl (12.0-16.0); LYMPH # 3.1 10*3/uL (1.3-4.4); LYMPH % 25.1 % (27.0-41.0); MEAN CELL VOLUME 93.3 fl (81.0-99.0); MEAN CORPUSCULAR HGB 29.7 pg (27.0-31.0); MEAN CORPUSCULAR HGB CONC 31.8 g/dl (33.0-37.0); MEAN PLATELET VOLUME 10.4 fl (9.6-12.3); MONO # 0.6 10*3/uL (0.1-1.0); MONO % 5.2 % (3.0-9.0); NEUT # 8.5 10*3/uL (2.3-7.9); NEUT % 68.9 % (47.0-73.0); PLATELET COUNT AUTOMATED 276 10*3/uL (130-400); RED BLOOD COUNT 4.45 10*6/uL (4.10-5.10); RED CELL DISTRI WIDTH 13.9 % (0-14.5); WHITE BLOOD COUNT 12.3 10*3/uL (4.8-10.8)
[2019-05-15 08:00] VITALS: BP 128/68
--- NOTE | 2019-05-15 10:27 | NUR ---
PATIENT RESTING IN BED, VOICES NO COMPLAINTS. D/C ORDER IN. PATIENTS DAUGHTER TO PICK HER UP AROUND 230. WILL CONTINUE TO MONITOR.
[2019-05-15 12:00] VITALS: BP 132/78; BP 142/89
--- NOTE | 2019-05-15 13:49 | NUR ---
IV REMOVED, HEART MONIOTR REMOVED. ERIN WITH PATIENT. PATIENT LEFT FLOOR WITH DAUGHTER. Discharge instructions reviewed with patient/family. Patient receptive and verbalizes understanding. Follow-up care arranged. Written instructions given to patient/family. CANDELARIA CEDENO
[2019-06-21 10:07] LABS: ACID FAST CULTURE Negative (.)
== END 2019-05-15 13:49 | disposition home or self-care (01) | DRG 196 ==
LOC: ED 11:18 → EDHOLD 12:35 → 4E 12:35
PROVIDERS: Emergency Medicine; Internal Medicine; Internal Medicine Critical Care Medicine; ADMIT Internal Medicine
PROC: 0BC18ZZ Extirpation of Matter from Trachea, Via Natural or Artificial Opening Endoscopic (ICD-10-PCS; principal; 2019-05-11)
PROC: 0BC28ZZ Extirpation of Matter from Carina, Via Natural or Artificial Opening Endoscopic (ICD-10-PCS; principal; 2019-05-11)
PROC: 0BCB8ZZ Extirpation of Matter from Left Lower Lobe Bronchus, Via Natural or Artificial Opening Endoscopic (ICD-10-PCS; principal; 2019-05-11)
PROC: 0BC98ZZ Extirpation of Matter from Lingula Bronchus, Via Natural or Artificial Opening Endoscopic (ICD-10-PCS; principal; 2019-05-11)
PROC: 0BC68ZZ Extirpation of Matter from Right Lower Lobe Bronchus, Via Natural or Artificial Opening Endoscopic (ICD-10-PCS; principal; 2019-05-11)
PROC: 0BC38ZZ Extirpation of Matter from Right Main Bronchus, Via Natural or Artificial Opening Endoscopic (ICD-10-PCS; principal; 2019-05-11)
PROC: 0BC48ZZ Extirpation of Matter from Right Upper Lobe Bronchus, Via Natural or Artificial Opening Endoscopic (ICD-10-PCS; principal; 2019-05-11)
PROC: 0BC78ZZ Extirpation of Matter from Left Main Bronchus, Via Natural or Artificial Opening Endoscopic (ICD-10-PCS; principal; 2019-05-11)
PROC: 0BC58ZZ Extirpation of Matter from Right Middle Lobe Bronchus, Via Natural or Artificial Opening Endoscopic (ICD-10-PCS; principal; 2019-05-11)
PROC: 0BC88ZZ Extirpation of Matter from Left Upper Lobe Bronchus, Via Natural or Artificial Opening Endoscopic (ICD-10-PCS; principal; 2019-05-11)
DX: J84.9 Interstitial pulmonary disease, unspecified (principal); J96.21 Acute and chronic respiratory failure with hypoxia; I50.23 Acute on chronic systolic (congestive) heart failure; Z68.41 Body mass index [BMI] 40.0-44.9, adult; I47.2 Ventricular tachycardia; I11.0 Hypertensive heart disease with heart failure; E66.01 Morbid (severe) obesity due to excess calories; J43.9 Emphysema, unspecified; J45.909 Unspecified asthma, uncomplicated; I25.10 Atherosclerotic heart disease of native coronary artery without angina pectoris; F17.200 Nicotine dependence, unspecified, uncomplicated; J20.9 Acute bronchitis, unspecified; K57.90 Diverticulosis of intestine, part unspecified, without perforation or abscess without bleeding; D72.829 Elevated white blood cell count, unspecified; T38.0X5A Adverse effect of glucocorticoids and synthetic analogues, initial encounter; E11.65 Type 2 diabetes mellitus with hyperglycemia; Z99.81 Dependence on supplemental oxygen; Z88.8 Allergy status to other drugs, medicaments and biological substances; Z88.6 Allergy status to analgesic agent; Z79.899 Other long term (current) drug therapy; Z79.82 Long term (current) use of aspirin; Z79.84 Long term (current) use of oral hypoglycemic drugs; Z87.440 Personal history of urinary (tract) infections; Z90.710 Acquired absence of both cervix and uterus; Z90.49 Acquired absence of other specified parts of digestive tract; Z98.51 Tubal ligation status; Z82.49 Family history of ischemic heart disease and other diseases of the circulatory system; Z83.3 Family history of diabetes mellitus; Z71.6 Tobacco abuse counseling; Z86.73 Personal history of transient ischemic attack (TIA), and cerebral infarction without residual deficits; Y92.89 Other specified places as the place of occurrence of the external cause

== ENCOUNTER 2019-06-23 16:43 | Inpatient (IN) | payer OTHER ==
[~2019-06-23] VITALS: Ht 167.6 cm; Wt 114.8 kg
--- NOTE | ~2019-06-23 | PR ---
[place], [place] PROGRESS NOTE NAME: KATHRINE REAGAN UNIT #: [id number] ROOM: 411 DOCTOR: LYNSEY GEIGER MD BIRTHDATE: [birth year] DOS: 06/26/2019 SUBJECTIVE: The patient is breathing better, but still not at her baseline, may be able to go home tomorrow. OBJECTIVE: VITAL SIGNS: Blood pressure 130/50, heart rate 80 beats per minute, breathing 17 times per minute, temperature 98 degrees Fahrenheit. GENERAL APPEARANCE: Except for general weakness, obesity and requiring oxygen by nasal cannula. The patient is alert and oriented x 3, in no visible distress. HEENT AND NECK: Exam within normal limits. CARDIOVASCULAR SYSTEM: Heart rate is regular in rate and rhythm. S1 and S2 normally audible. LUNGS: Clear to auscultation. ABDOMEN: Soft, nontender. No obvious organomegaly. Bowel sounds are present. EXTREMITIES: Without significant cyanosis or edema. IMPRESSION: 1. Acute over chronic respiratory failure and acute exacerbation of chronic obstructive pulmonary disease. Continues to improve with treatment. The patient is already on oxygen, nebulizer treatments, bronchodilators and slowly improving. 2. Morbid obesity, body mass index 40.8. The patient is working with Dietary. 3. Nicotine smoke dependence. The patient has been encouraged to stop smoking cigarettes. 4. Coronary artery disease of the [place] vessels without chest pain. 5. Type 2 diabetes mellitus. Blood sugars will be monitored and controlled. The patient remains on metformin. 6. Transient ischemic attack. The patient remains on aspirin and dipyridamole. No new symptoms. 7. Benign essential hypertension, treated and controlled. The patient is on lisinopril. [place], [place] PROGRESS NOTE NAME: KATHRINE REAGAN UNIT #: [id number] ROOM: 411 DOCTOR: LYNSEY GEIGER MD BIRTHDATE: [birth year] LYNSEY GEIGER MD CM:PNTRANS [id number] LYNSEY GEIGER MD 06/26/19 1216 interface
--- NOTE | ~2019-06-23 | CON ---
[place], [place] REPORT OF CONSULTATION NAME: KATHRINE REAGAN [facility] #: [id number] UNIT #: [id number] ROOM: 411 DOCTOR: MANAV CARBALLO MD BIRTHDATE: [birth year] DOS: 06/25/2019 PULMONARY CONSULTATION, EVALUATION, AND MANAGEMENT REASON FOR CONSULTATION: To assess the patient for the acute exacerbation of bronchial asthma. HISTORY OF PRESENT ILLNESS: A 59-year-old white female patient who has been known to me from the previous admission as well as an office visit. She has been presented to the hospital, admitted under care of Dr. Patel on 06/23/2019. She has been complaining of symptoms of shortness of breath that has been noted with gradual worsening. She was also complaining of mild nonproductive cough. Denies symptoms of wheezing. The main symptoms reported is shortness of breath. The patient stated symptoms have worsened due to the change of the weather. She denies symptoms of headache or diplopia. She denies symptoms of hemoptysis or current symptoms of any chest pain. She has been currently admitted to the hospital from the of this month for further care. REVIEW OF SYSTEMS: CONSTITUTIONAL SYMPTOMS: Fatigue and tiredness reported. Denies symptoms of fever or chills. EYES: Denies any burning, redness, or tenderness. EARS, NOSE, THROAT SYMPTOMS: Denies sore throat, hoarseness, otalgia, postnasal drainage, or epistaxis. CARDIOVASCULAR SYSTEM: Denies angina pain, edema, or pain of the lower extremities. GASTROINTESTINAL SYMPTOMS: Denies dysphagia, nausea, vomiting, diarrhea, abdominal pain, hematemesis, melena, or hematochezia. SKIN: Denies abnormal lesions or rashes. CENTRAL NERVOUS SYSTEM: Denies dizziness, headache, diplopia, or syncopal episodes. Remaining systems were reviewed with the patient, they were noted all negative. PAST MEDICAL HISTORY: Known with history of: 1. COPD. 2. Essential hypertension. 3. Suspected obstructive sleep apnea disorder. 4. Type 2 diabetes mellitus. 5. Gastroesophageal reflux. 6. History of transient ischemic attack. PAST SURGICAL HISTORY: 1. Cholecystectomy. 2. Complete hysterectomy. 3. Partial colectomy. 4. Diverticulosis. 5. Left breast lumpectomy that was benign. 6. Therapeutic bronchoscopy. [place], [place] REPORT OF CONSULTATION NAME: KATHRINE REAGAN UNIT #: [id number] ROOM: 411 DOCTOR: MANAV CARBALLO MD BIRTHDATE: [birth year] SOCIAL HISTORY: The patient is , has 2 children, lives at home. Tobacco use was noted as a teenager, 1 pack of cigarettes per day. Denies history of alcohol use or illicit drug use. FAMILY HISTORY: The patient's father at age of 50 years with complication of myocardial infarction. Mother at the age of 70 years of complication of colorectal cancer. CURRENT MEDICATIONS: Administered noted lisinopril, aspirin, metformin, and Rocephin. DRUG ALLERGIES: NOTED ALLERGY: 1. FLUOROQUINOLONES. 2. METRONIDAZOLE. 3. MORPHINE. PHYSICAL EXAMINATION: GENERAL: A 59-year-old female patient who was noted to be awake and alert without any distress. Height 5 feet 6 inches, weight of 253 pounds, BMI 40.8. VITAL SIGNS: The patient has a normal temperature, respiratory rate 16-22, heart rate of 72-79, blood pressure 140/45-142/55. Pulse oxygen saturation on 3 liters nasal cannula noted 92% saturation. HEENT: Shows head was atraumatic. Eyes nonicterus. NECK: Supple. CARDIOVASCULAR SYSTEM: S1, S2 is audible. LUNGS: Noted without any wheezing or crackles. EXTREMITIES: Noted without any acute edema, clubbing, or cyanosis. MUSCULOSKELETAL: Noted without any acute deformities. CENTRAL NERVOUS SYSTEM: Noted without any deformities. LABORATORY DATA: CBC that was done on 06/23/2019 noted with WBC count 9.6, hemoglobin and hematocrit normal, platelet count were normal. CMP that was done on 06/23/2019; glucose 126, BUN and creatinine were normal, CO2 was 33. Arterial blood gas that was done yesterday; pH of 7.35, pCO2 of 57, pO2 of 57 as well. Chest x-ray, which was done was noted with increased interstitial marking at the present time. There were no focal areas of infiltrates. IMPRESSION: The patient who has been currently noted chronic hypercarbic respiratory failure, currently admitted with recurrent acute exacerbation of chronic obstructive pulmonary disease, history of nicotine abuse. There was no evidence of interstitial lung disease. Noted with the previous CT scan of the chest that was done in 04/2019, currently increased finding may be noted consistent with possibility of acute bronchitis. PLAN OF THERAPY: The patient will be ordered the sputum for Gram stain and culture if she expectorates any sputum. Ordered the Solu-Medrol 40 mg b.i.d. as well. Continuation of bronchodilators in the form of albuterol sulfate. Other additional treatment changes will be made based on the progression of the illness. Monitor respiratory status expecting hopefully home discharge in the next 24-48 hours. [place], [place] REPORT OF CONSULTATION NAME: KATHRINE REAGAN UNIT #: [id number] ROOM: 411 DOCTOR: MANAV CARBALLO MD BIRTHDATE: [birth year] MANAV URENA MD CM:CONSTR:REPORT OF CONSULTATION [id number] 06/26/19 0130 interface
--- NOTE | ~2019-06-23 | PR ---
[place], [place] PROGRESS NOTE NAME: KATHRINE REAGAN UNIT #: [id number] ROOM: 411 DOCTOR: ROMEL RAPP MD,MANAV BIRTHDATE: [birth year] DOS: 06/26/2019 SUBJECTIVE: The patient has been noted without any acute distress, shortness of breath, coughing, other symptoms have been subsiding. She would like to be discharged home today. Denies symptoms of fever or chills or any acute hemoptysis. OBJECTIVE: VITAL SIGNS: For the patient recorded normal temperature, respiratory rate 17, heart rate of 80, blood pressure 130/50. Pulse oxygen saturation recorded on 2 liters nasal cannula 94% saturation. HEAD, EYES, EARS, NOSE, AND THROAT: Examination shows head was atraumatic. Eyes nonicterus. NECK: Supple. CARDIOVASCULAR SYSTEM: S1, S2 audible. LUNGS: Noted with moderate reduced breath sounds. There were no wheeze or crackles heard at the present time. ABDOMEN: Soft and obese. EXTREMITIES: Without acute changes. MUSCULOSKELETAL: Without acute deformities. IMPRESSION: 1. The patient with acute exacerbation of chronic obstructive pulmonary disease with chronic hypercarbic respiratory failure, history of nicotine dependence. There was no evidence of interstitial lung disease, which has been previously occluded with a CT scan of the chest few weeks ago. 2. Chronic obesity. PLAN OF MANAGEMENT: No changes in the plan of management at this time. Discharge Planning may be considered for home discharge. Oxygen assessment to be done if not done so for the need of home oxygen use. MANAV URENA MD CM:PNTRANS [id number] MANVA RAPP MD 06/26/19 [id number] interface
--- NOTE | ~2019-06-23 | PR ---
[place], [place] PROGRESS NOTE NAME: KATHRINE REAGAN UNIT #: [id number] ROOM: 411 DOCTOR: LYNSEY GEIGER MD BIRTHDATE: [birth year] DOS: 06/25/2019 SUBJECTIVE: The patient's breathing is improving somewhat with treatment. OBJECTIVE: VITAL SIGNS: Blood pressure 114/56, heart rate 75 beats per minute, breathing 20 times per minute, temperature 98 degrees Fahrenheit. GENERAL APPEARANCE: The patient is alert and oriented x 3, in no visible distress. Obesity. HEENT AND NECK: Exam within normal limits. CARDIOVASCULAR SYSTEM: Heart rate is regular in rate and rhythm. S1 and S2 normally audible. LUNGS: Decreased breath sounds on lung auscultation. ABDOMEN: Soft, nontender. No obvious organomegaly. Bowel sounds are present. EXTREMITIES: Without significant cyanosis or edema. IMPRESSION: 1. Acute exacerbation of severe underlying chronic obstructive pulmonary disease with acute over chronic respiratory failure. Dr. Cho is following and treating her with bronchodilators, oxygen, antibiotics, slow improvement. 2. Morbid obesity, body mass index of 40.8. The patient is working with Dietary. 3. Nicotine smoke dependence. The patient encouraged to stop smoking cigarettes. 4. Coronary artery disease of the [place] vessels without chest pains. 5. Type 2 diabetes mellitus with reasonably controlled blood sugars. The patient is on metformin. 6. The patient with transient ischemic attacks, remains on aspirin and dipyridamole. 7. Benign essential hypertension, treated and controlled. The patient is on lisinopril. LYNSEY GEIGER MD CM:PNTRANS [id number] LYNSEY GEIGER MD 06/26/19 0142 interface
--- NOTE | ~2019-06-23 | EKG ---
[place], [place] ELECTROCARDIOGRAM REPORT NAME: KATHRINE REAGAN UNIT #: [id number] ROOM: 411 DOCTOR: ANDREW DRAFT REPORT BIRTHDATE: [birth year] [facility] Test Date: 2019-06-23 Test Time: 16:50:08 Pat Name: KATHRINE REAGAN Department: ED Room: 411 Gender: F Adjutant General: Alan Carlson : 1960 Requested By: RODRIGO VALDEZ Order Number: [id number] Reading MD: Larry Charlton MD Measurements Intervals [place] Rate: 82 P: 55 MT: 176 QRS: -22 QRSD: 78 T: 87 QT: 352 QTc: 411 Interpretive Statements Sinus rhythm Inferior infarct, old Anterior infarct, old Baseline wander in lead(s) V5 Compared to ECG 05/13/2019 03:58:14 ST (T wave) deviation no longer present Myocardial infarct finding still present Electronically Signed On 06-25-2019 10:12:06 PST by Larry Charlton MD CM:EKGRPT:ELECTROCARDIOGRAM REPORT [id number] RODRIGO MORALES DRAFT REPORT RODRIGO VALDEZ M.D.
--- NOTE | ~2019-06-23 | PR ---
[place], [place] PROGRESS NOTE NAME: KATHRINE REAGAN UNIT #: [id number] ROOM: 411 DOCTOR: ROMEL RAPP MD,MANAV BIRTHDATE: [birth year] DOS: 06/27/2019 PULMONARY PROGRESS NOTE SUBJECTIVE: The patient noted comfortable at this time, resting on the bed. She stated she had not been discharged yesterday and might be discharged home today by her primary care physician. Respiratory symptoms continued to resolve and the patient improved progressively. OBJECTIVE: VITAL SIGNS: Normal temperature, respiratory rate 20, heart rate 67, blood pressure 115/59 recorded at midnight. The pulse oxygen saturation recorded on 2 liters nasal cannula 93% saturation. HEENT: Examination shows head was atraumatic. Eyes nonicterus. NECK: Supple. CARDIOVASCULAR: S1, S2 audible. LUNGS: Noted without any wheeze or crackles. IMPRESSION: 1. The patient with resolving acute exacerbation of chronic obstructive pulmonary disease, acute tracheobronchitis. Culture of the sputum noted as normal alondra. 2. The patient was noted hypoxia with exertion yesterday as assessed. PLAN OF MANAGEMENT: No changes from the pulmonary standpoint. Discharge planning for the patient to be started by the primary care physician. Discontinue Solu-Medrol. Start the patient on tapering dose of prednisone that will be used on discharge as well. Tobacco abstinence was suggested. Arrangement for the oxygen for home should be done. Outpatient followup was requested for the patient in a couple of weeks. MANAV URENA MD CM:PNTRANS [id number] MANAV RAPP MD 06/27/19 1413 interface
--- NOTE | ~2019-06-23 | WRIGHTHP ---
[place], [place] PATIENT HISTORY AND PHYSICAL EXAM NAME: KATHRINE REAGAN [facility] #: [id number] UNIT #: [id number] ROOM: 411 DOCTOR: LYNSEY GEIGER MD BIRTHDATE: [birth year] DOS: 06/23/2019 HISTORY OF PRESENT ILLNESS: The patient is a 59-year-old female with a past medical history of: 1. COPD with chronic respiratory failure and oxygen dependence. 2. History of morbid obesity, BMI of 41. 3. Nicotine smoke dependence. 4. The patient with chronic systolic type congestive heart failure. 5. Interstitial lung disease evaluated by Dr. Cho. 6. Benign essential hypertension. 7. Coronary artery disease of [place] vessels without chest pains. 8. Type 2 diabetes mellitus. 9. Previous history of TIA. The patient with advanced COPD, chronic respiratory failure, presents with increased shortness of breath and significant dyspnea on exertion. The patient also has interstitial lung disease and was admitted for acute exacerbation of COPD. I will get bottom brusher, Dr. Cho to follow her because he has seen her in the past and she has advanced lung disease with chronic lung issues including COPD, interstitial lung disease and congestive heart failure. The patient was started on DuoNebs, oxygen, antibiotic. I am avoiding corticosteroids because of her diabetes mellitus. 10. Type 2 diabetes mellitus with previous history of corticosteroid-induced hyperglycemia. Blood sugars are reasonably controlled, no chest pain, no GI or urinary symptoms. REVIEW OF SYSTEMS: RESPIRATORY: Increasing shortness of breath and dyspnea on exertion. GASTROINTESTINAL: No nausea, vomiting, diarrhea, constipation. CARDIOVASCULAR: No chest pains or palpitations. FAMILY HISTORY: Noncontributory. SOCIAL HISTORY: Nicotine smoke dependence. Denies any alcohol or drug abuse. HOME MEDICATIONS: Lisinopril, dipyridamole, aspirin, metformin. PHYSICAL EXAMINATION: GENERAL: Alert, oriented x 3, morbidly obese, BMI of 40.8. HEENT AND NECK: Extraocular movements are intact. Sclerae are anicteric. Oral mucosa is moist and clean. No obvious facial weakness. Neck is supple without any lymphadenopathy. No thyromegaly. No JVD. No carotid arterial bruits. LUNGS: Decreased breath sounds and slight expiratory wheezing which is scattered. CARDIOVASCULAR SYSTEM: Heart rate is regular in rate and rhythm. S1 and S2 normally audible. No significant murmur or any other abnormal cardiac sounds. ABDOMEN: Soft, nontender. No obvious organomegaly. Bowel sounds are present. No obvious herniation. EXTREMITIES: Without significant cyanosis or edema. Warm to touch. CENTRAL NERVOUS SYSTEM: Alert and oriented x 3. Cranial nerves II-XII are intact. Speech is normal. The patient is able to move all extremities. Normal muscle strength. Deep tendon reflexes are equal on both sides. Plantars were [place], [place] PATIENT HISTORY AND PHYSICAL EXAM NAME: KATHRINE REAGAN UNIT #: [id number] ROOM: 411 DOCTOR: FELY LINN,LYNSEY Zhao BIRTHDATE: [birth year] down[place]. IMPRESSION: 1. Acute exacerbation of severe underlying chronic obstructive pulmonary disease with acute over chronic respiratory failure. I will consult Dr. Cho to follow and treat her with bronchodilators, oxygen and antibiotic. 2. Chronic history of interstitial lung disease followed by Dr. Cho. 3. Morbid obesity, body mass index of 40.8. The patient is to work with Dietary. 4. Nicotine smoke dependence. The patient encouraged to stop smoking cigarettes. 5. Coronary artery disease of the [place] vessels without chest pains. 6. Type 2 diabetes mellitus. Blood sugars are reasonably controlled. The patient is on metformin. 7. Benign essential hypertension. The patient is on lisinopril. 8. The patient with transient ischemic attack, remains on aspirin and dipyridamole. LYNSEY GEIGER MD CM:HISPHYS:PATIENT HISTORY AND PHYSICAL EXAMINATION [id number] LYNSEY GEIGER MD 06/24/19 1525 interface
--- NOTE | ~2019-06-23 | DS ---
[place], [place] DISCHARGE SUMMARY NAME: KATHRIEN REAGAN UNIT #: [id number] ROOM: 411 DOCTOR: LYNSEY GEIGER MD BIRTHDATE: [birth year] DOS: 06/27/2019 DISCHARGE DIAGNOSES: 1. Acute exacerbation of chronic obstructive pulmonary disease. 2. Acute over chronic respiratory failure with home oxygen dependence. 3. Morbid obesity, BMI of 40.8. 4. Nicotine smoke dependence. 5. Coronary artery disease of [place] vessels. 6. Type 2 diabetes mellitus. 7. History of transient ischemic attack. 8. Benign essential hypertension. 9. Chronic systolic type congestive heart failure, compensated. 10. Interstitial lung disease, evaluated by Dr. Cho. HOSPITAL COURSE: The patient presented to the Emergency Department at [facility] and was admitted for increased shortness of breath, acute over chronic respiratory failure and acute exacerbation of COPD and dyspnea on exertion. The patient has achieved maximal benefit from treatment with corticosteroids, oxygen, antibiotic and going home after being cleared by Dr. Cho. Morbid obesity, BMI of 40.8. The patient worked with Dietary. Nicotine smoke dependence. The patient encouraged to stop smoking cigarettes. Coronary artery disease of [place] vessels, without chest pains. Benign essential hypertension, treated and controlled. TIA. The patient remains on aspirin and dipyridamole. Sputum culture negative. Chest x-ray showed interstitial lung disease bilaterally. DISCHARGE MEDICATIONS: Medrol Dosepak, Augmentin for a week, metformin 500 mg daily, dipyridamole 25 mg daily, aspirin 81 mg a day, lisinopril 20 mg a day, albuterol inhaler, DuoNeb as needed, nicotine patch 21 mg daily. [place], [place] DISCHARGE SUMMARY NAME: KATHRINE REAGAN UNIT #: [id number] ROOM: 411 DOCTOR: LYNSEY GEIGER MD BIRTHDATE: [birth year] LYNSEY EGIGER MD CM:DISCHARG [id number] LYNSEY GEIGER MD 06/27/19 1147 interface
[~2019-06-23 16:43] MED LIST changes: +ZESTORETIC 20-1 EACH PO
[2019-06-23 16:47] VITALS: BP 128/81
[2019-06-23 17:50] LABS: BASO % 0.4 % (0.0-1.0); EOS # 0.1 10*3/uL (0.0-0.4); EOS % 0.9 % (1.0-4.0); HEMATOCRIT 41.8 % (37.0-47.0); HEMOGLOBIN 13.1 g/dl (12.0-16.0); LYMPH % 21.1 % (27.0-41.0); MEAN CELL VOLUME 94.4 fl (81.0-99.0); MEAN CORPUSCULAR HGB 29.6 pg (27.0-31.0); MEAN CORPUSCULAR HGB CONC 31.3 g/dl (33.0-37.0); MEAN PLATELET VOLUME 10.2 fl (9.6-12.3); MONO # 0.6 10*3/uL (0.1-1.0); MONO % 6.6 % (3.0-9.0); NEUT # 6.7 10*3/uL (2.3-7.9); NEUT % 70.2 % (47.0-73.0); PLATELET COUNT AUTOMATED 277 10*3/uL (130-400); RED BLOOD COUNT 4.43 10*6/uL (4.10-5.10); RED CELL DISTRI WIDTH 15.4 % (0-14.5); WHITE BLOOD COUNT 9.6 10*3/uL (4.8-10.8)
[2019-06-23 18:08] LABS: ALBUMIN 3.4 gm/dl (3.1-4.5); ALKALINE PHOSPHATASE 59 U/L (45-117); BUN 11 mg/dl (7-24); CHLORIDE 105 mmol/L (98-107); POTASSIUM 4.4 mmol/L (3.5-5.1); SGOT/AST 21 IU/L (3-35); SGPT/ALT 21 U/L (12-78); SODIUM 141 mmol/L (136-145); TOTAL PROTEIN 6.8 gm/dL (6.4-8.2)
[2019-06-23 18:14] LABS: TROPONIN I < 0.015 ng/ml (<0.045)
[2019-06-23 18:26] LABS: ABG BASE EXCESS 4.5 mmol/L (-2.0-2.0); ABG HCO3 31.2 mmol/l (22-26); ABG O2 SATURATION 90.9 % (95-97); ARTERIAL BLOOD GAS PCO2 57.7 mmHg (35-45); ARTERIAL BLOOD GAS PH 7.351 (7.35-7.45)
[2019-06-23 18:31] LABS: BILIRUBIN NEGATIVE (NEGATIVE); BLOOD NEGATIVE (NEGATIVE); CLARITY CLEAR (CLEAR); COLOR YELLOW (YELLOW); GLUCOSE NEGATIVE (NEGATIVE); KETONE NEGATIVE (NEGATIVE); LEUKO ESTERASE NEGATIVE (NEGATIVE); NITRITE NEGATIVE (NEGATIVE); UROBILINOGEN 0.2 E.U./dl (0.2-1.0)
[2019-06-23 18:40] LABS: EPITHELIAL CELLS 21-30; WBC 16-20 wbc/hpf (0-5)
[2019-06-23 18:41] LABS: BACTERIA 1+
[2019-06-23 18:50] VITALS: BP 135/65
[2019-06-23 19:00] VITALS: BP 135/65
[2019-06-23 19:30] VITALS: BP 143/55
[2019-06-23 20:00] VITALS: BP 144/55
[2019-06-23 20:20] VITALS: BP 131/65
--- NOTE | 2019-06-23 20:20 | NUR ---
A 59, admitted to , under the services of Dr. FELY LINN,LYNSEY Zhao with a diagnosis of COPD EXACERBATION. Chief complaint is SHORTNESS OF BREATH. Patient arrived via stretcher from ER. Monitor applied. Initial assessment completed. Vital signs taken and recorded. DR. FELY LINN,LYNSEY Zhao notified of admission to the unit. Orders received. See assessment for past medical history, medications and allergies. Patient and/or family oriented to unit. [address] visitation policy reviewed. Clothing/patient valuable form completed. PATIENT ON 4L NC. KAYLYNN FLOREZ
--- NOTE | 2019-06-23 20:50 | NUR ---
NOTIFIED DR GEIGER OF COMPLETED MED REC. ORDERS RECIEVED TO ORDER IV ROCEPHIN 1 GRAM DAILY, DUONEB Q4H, TITIRATE O2 TO KEEP PT'S PULSE OX BETWEEN 90-96%, NO CONCENTRATED SWEETS DIET, AND TO CONTINUE HOME MED GLUCOPHAGE BUT TO HOLD ALL OTHER HOME MEDS.
--- NOTE | 2019-06-23 23:58 | NUR ---
PATIENT RESTING IN BED. SO SIGNS OR SYMPTOMS OF DISTRES. CALL LIGHT WITHIN REACH. BED LOCKED AND IN LOWEST POSITION. SIDE RAILS UP X 2. PULSE OX 92% ON 4L NC. WILL CONTINUE TO MONITOR.
[2019-06-24] VITALS: BP 149/78
[2019-06-24 08:00] VITALS: BP 118/74
[2019-06-24 12:00] VITALS: BP 120/54
[2019-06-24 16:00] VITALS: BP 114/50
--- NOTE | 2019-06-24 16:12 | NUR ---
PRN TYLENOL GIVEN FOR PT COMLAINTS OF A HEADACHE. CALL LIGHT WITHMark RODRIGEZ, WILL JIMMY
--- NOTE | 2019-06-24 17:55 | NUR ---
DR. URENA MADE AWARE OF CONSULT
--- NOTE | 2019-06-24 18:00 | NUR ---
PRN TYLENOL APPERAS EFFECTIVE, PT SLEEPIG
[2019-06-24 20:00] VITALS: BP 114/45
--- NOTE | 2019-06-24 22:23 | NUR ---
24 HR chart check completed.
[2019-06-25] VITALS: BP 113/52
--- NOTE | 2019-06-25 00:28 | NUR ---
Patient resting quietly with no c/o discomfort. Respirations easy and regular. Vital signs stable. No overt distress. CALL LIGHT WITHIN REACH. KAYLYNN FLOREZ
[2019-06-25 08:00] VITALS: BP 114/56
--- NOTE | 2019-06-25 08:16 | NUR ---
PT MEDICATED WITH TYLENOL AT HER REQUEST FOR C/O HEADACHE PAIN.
--- NOTE | 2019-06-25 10:30 | NUR ---
Market Research Interviewer in to talk to patient. Patient states lives at home with her . There are 0 steps in the home. Physician: Dr. Rose Smith [facility] health services: none Patient's level of ADLs: INDEPENDENT Patient has working utilities: yes DME: O2 @ 2L [place], portable O2 tanks, O2 supplier [employer], left wrist brace Follow-up physician's appointment after d/c: she prefers to make her own follow up appt after discharge Does patient want to access PORTAL?: no Discharge plan discussed with patient. She lives at home with her . She has been sleeping on her sofa due to not being able to sleep in her bed. She is independent in her ADLs and ambulation. Discussed home health care services and she denies any home needs at this time. She would like to have a pulse ox at home but she will have her go to the store and get one. She would like smaller O2 tanks but has tried and her insurance will not pay for the portable that makes its own O2. When medically stable she will be discharged to home. Her or daughter will provide transportation on discharge. MADONNA GARCIA
[2019-06-25 12:00] VITALS: BP 125/68
[2019-06-25 16:00] VITALS: BP 127/58
[2019-06-25 20:00] VITALS: BP 101/57
--- NOTE | 2019-06-25 20:54 | NUR ---
24 HR chart check completed.
--- NOTE | 2019-06-25 22:00 | NUR ---
SLEEPING, NO DISTRESS NOTED. RESPIRATION EASY. LUNGS DIMINISHED, CLEAR. PULSE OX 94% 3L HUMDIFIED. CLAIMS COUGH PROD WHITE, SPECIMEN OBTAINED AND SENT FOR CULTURES. CALL LIGHT WITHIN REACH. NO VOICED COMPLAINTS
[2019-06-26] VITALS: BP 108/53
--- NOTE | 2019-06-26 | NUR ---
SLEEPING. NO DISTERSS NOTED.
--- NOTE | 2019-06-26 05:37 | NUR ---
REQUESTED AND RECEIVED TYLENOL PER PRN ORDER FOR COMPLAINTS OF HEADACHE RATING A 5. CALL LIGHT WITHIN REACH. WILL MONITOR FOR EFFECTIVENESS
--- NOTE | 2019-06-26 07:00 | NUR ---
TYLENOL EFFECTIVE. RESTING WITH NO DISTRESS NOTED. RESPIRATIONS EASY. VSS. CALL LIGHT WITHIN REACH
[2019-06-26 08:00] VITALS: BP 130/50
--- NOTE | 2019-06-26 10:30 | NUR ---
Retail Planner in to see patient. She is sitting up in bed without distress noted. Daughter at bedside. Discussed home needs and she denies any home needs at this time. When medically stable she will be discharged to home. Possible discharge tomorrow per Dr. Smith.
[2019-06-26 12:00] VITALS: BP 123/57
--- NOTE | 2019-06-26 12:02 | NUR ---
PULSE OX ON R/A AT REST 92%. HEART RATE 71, B/P 116/61. PT. AMBULATED IN THE [place] ON R/A, PULSE OX DECREASING TO 86%, PT. PLACED ON 2L O2, SAT INCREASING TO 92%, CONTINUED WALK ON 2L O2, SAT 89 TO 92%, PT TOLERATED WELL, RETURNED TO ROOM, RESTING AT BEDSIDE WITH 2L, SAT 94%. B/P POST WALK 145/76, HEART RATE 73. RN NOTIFIED OF RESULTS.
--- NOTE | 2019-06-26 12:21 | NUR ---
DR. URENA NOTIFIED OF AMBULATION RESULTS.
[2019-06-26 16:00] VITALS: BP 127/52
[2019-06-26 20:00] VITALS: BP 141/58
--- NOTE | 2019-06-26 20:00 | NUR ---
IN TO ASSESS PATIENT. PATIENT PLEASANT AND COOPERATIVE. STATES THAT SHE WILL GET TO GO HOME TOMORROW. 2L NC INTACT. PATIENT STATES HER BREATHING IS MUCH BETTER. CALL LIGHT WITHIN REACH, WILL MONITOR
--- NOTE | 2019-06-26 21:10 | NUR ---
PRN TYLENOL GIVEN FOR PT COMPLAINTS OF A MILD HEADACHE. CALL LIGHT WITHIN REACH, WILL MONITOR
--- NOTE | 2019-06-26 23:00 | NUR ---
PATIENT SLEEPING. NO DISTRESS NOTED. CALL LIGHT WITHIN REACH, DEANN MARQUEZ
--- NOTE | 2019-06-26 23:21 | NUR ---
24 HR chart check completed.
[2019-06-27] VITALS: BP 115/59
--- NOTE | 2019-06-27 01:08 | NUR ---
PATIENT CONITUES TO SLEEP. BREATHING IS EASY AND REGULAR. NASAL CANNULA INTACT. CALL LIGHT WIHTIN REACH
--- NOTE | 2019-06-27 07:57 | NUR ---
Psych Arnp in to see patient. No new needs or request at this time. She is sitting up in bed without distress noted. She denies any home needs at this time. When medically stable she will be discharged to home. Her daughter will provide transportation about 10am this morning. She is awaiting her discharge.
[2019-06-27 08:00] VITALS: BP 126/62
[2019-06-27] MEDS ORDERED: AUGMENTIN 875-875 MG PO (10:57)
[2019-06-27] MEDS ORDERED: MEDROL DOSEPAK4 MG PO (10:57)
--- NOTE | 2019-06-27 11:25 | NUR ---
Discharge instructions reviewed with patient/family. Patient receptive and verbalizes understanding. Follow-up care arranged. Written instructions given to patient/family. HE[place]OCK DISCONTINUED. DOLPHIN RESEARCHER REMOVED. PATIENT PICKED UP BY DAUGHTER. DELGADO HAN
== END 2019-06-27 11:25 | disposition home or self-care (01) | DRG 189 ==
LOC: ED 16:43 → EDHOLD 18:55 → 4E 18:55
PROVIDERS: Emergency Medicine; ADMIT Internal Medicine
DX: J96.21 Acute and chronic respiratory failure with hypoxia (principal); J84.9 Interstitial pulmonary disease, unspecified; I50.22 Chronic systolic (congestive) heart failure; Z68.41 Body mass index [BMI] 40.0-44.9, adult; J96.22 Acute and chronic respiratory failure with hypercapnia; E66.01 Morbid (severe) obesity due to excess calories; F17.210 Nicotine dependence, cigarettes, uncomplicated; I25.10 Atherosclerotic heart disease of native coronary artery without angina pectoris; E11.9 Type 2 diabetes mellitus without complications; J45.909 Unspecified asthma, uncomplicated; I11.0 Hypertensive heart disease with heart failure; J20.9 Acute bronchitis, unspecified; K57.90 Diverticulosis of intestine, part unspecified, without perforation or abscess without bleeding; K21.9 Gastro-esophageal reflux disease without esophagitis; J43.9 Emphysema, unspecified; Z99.81 Dependence on supplemental oxygen; Z88.6 Allergy status to analgesic agent; Z88.8 Allergy status to other drugs, medicaments and biological substances; Z79.84 Long term (current) use of oral hypoglycemic drugs; Z79.82 Long term (current) use of aspirin; Z86.73 Personal history of transient ischemic attack (TIA), and cerebral infarction without residual deficits; Z79.899 Other long term (current) drug therapy; Z90.710 Acquired absence of both cervix and uterus; Z98.51 Tubal ligation status; Z90.49 Acquired absence of other specified parts of digestive tract; Z82.49 Family history of ischemic heart disease and other diseases of the circulatory system; Z83.3 Family history of diabetes mellitus; Z71.6 Tobacco abuse counseling

== ENCOUNTER 2019-07-21 09:55 | Emergency (ER) | payer OTHER ==
[~2019-07-21] VITALS: Ht 167.6 cm; Wt 112.0 kg
[~2019-07-21 09:55] MED LIST changes: +AUGMENTIN 875-875 MG PO
[2019-07-21] MEDS ORDERED: IBUPROFEN600 MG PO (12:03)
[2019-07-21] MEDS ORDERED: WALKER (12:03)
== END 2019-07-21 12:10 | disposition home or self-care (01) ==
LOC: ED 09:55
DX: S83.91XA Sprain of unspecified site of right knee, initial encounter (principal); J44.9 Chronic obstructive pulmonary disease, unspecified; I10 Essential (primary) hypertension; J45.909 Unspecified asthma, uncomplicated; E78.00 Pure hypercholesterolemia, unspecified; F17.200 Nicotine dependence, unspecified, uncomplicated; Z88.1 Allergy status to other antibiotic agents; Z88.6 Allergy status to analgesic agent; Z79.899 Other long term (current) drug therapy; Z79.82 Long term (current) use of aspirin; X58.XXXA Exposure to other specified factors, initial encounter; Y93.89 Activity, other specified; Y92.89 Other specified places as the place of occurrence of the external cause; Y99.8 Other external cause status

== ENCOUNTER → 2019-08-02 | Outpatient (CLI) | payer OTHER ==
[~2019-08-02] MED LIST changes: +IBUPROFEN600 MG PO; +WALKER
== END | disposition home or self-care (01) ==
LOC: US 09:35
DX: M17.11 Unilateral primary osteoarthritis, right knee (principal); M25.551 Pain in right hip; R60.0 Localized edema; M25.561 Pain in right knee

== ENCOUNTER 2019-08-07 10:25 | Inpatient (IN) | payer OTHER ==
[~2019-08-07] VITALS: Ht 167.6 cm; Wt 112.0 kg
[2019-08-07 10:46] LABS: BASO % 0.4 % (0.0-1.0); EOS # 0.1 10*3/uL (0.0-0.4); HEMATOCRIT 43.5 % (37.0-47.0); HEMOGLOBIN 13.5 g/dl (12.0-16.0); LYMPH % 19.4 % (27.0-41.0); MEAN CELL VOLUME 95.2 fl (81.0-99.0); MEAN CORPUSCULAR HGB 29.5 pg (27.0-31.0); MEAN PLATELET VOLUME 10.2 fl (9.6-12.3); MONO # 0.7 10*3/uL (0.1-1.0); MONO % 7.1 % (3.0-9.0); NEUT # 7.4 10*3/uL (2.3-7.9); NEUT % 71.8 % (47.0-73.0); PLATELET COUNT AUTOMATED 285 10*3/uL (130-400); RED BLOOD COUNT 4.57 10*6/uL (4.10-5.10); RED CELL DISTRI WIDTH 15.3 % (0-14.5); WHITE BLOOD COUNT 10.3 10*3/uL (4.8-10.8)
[2019-08-07 10:57] LABS: ACT PARTIAL THROMBO TIME 27.1 SECONDS (20.0-32.1); INTERNATIONAL NORM RATIO 0.9 (2.0-3.5)
[2019-08-07 11:04] LABS: ALBUMIN 3.9 gm/dl (3.1-4.5); ALKALINE PHOSPHATASE 69 U/L (45-117); BUN 11 mg/dl (7-24); CHLORIDE 102 mmol/L (98-107); POTASSIUM 4.2 mmol/L (3.5-5.1); SGOT/AST 8 IU/L (3-35); SGPT/ALT 20 U/L (12-78); SODIUM 141 mmol/L (136-145); TOTAL PROTEIN 6.8 gm/dL (6.4-8.2)
[2019-08-07 11:05] LABS: TROPONIN I < 0.015 ng/ml (<0.045)
[2019-08-07 11:20] VITALS: BP 140/61
--- NOTE | 2019-08-07 12:20 | NUR ---
PT GIVEN BEDSIDE COMMODE PER REQUEST PT WITH FAMILY NO OTHER REQESTS
--- NOTE | 2019-08-07 13:35 | NUR ---
PT UPDATED ON LAB AND X-RSY RESULTS PT HAVING 2ND TROPONIN DRAWN PT ADVISED RESULTS SHOULD BE WITHIN ONE HOUR PT HAD NO OTHER REQUESTS
[2019-08-07 14:38] VITALS: BP 148/65
[2019-08-07 14:45] VITALS: BP 140/62
--- NOTE | 2019-08-07 15:00 | NUR ---
DR GEIGER INFORMED OF PT BEING ON THE FLOOR AND THAT MED REC WAS COMPLETE.STATED HE WOULD PUT ORDERS IN.
--- NOTE | 2019-08-07 15:11 | NUR ---
The assessment has been completed. JOHANA PAUL Time: 1445 A 59 year old FEMALE admitted to under services of DR. FELY LINN,LYNSEY Barger Pt. arrived via ambulatory from ER. Chief complaint: INCREASING SOB FOR 2-3 DAYS. JOHANA PAUL
--- NOTE | 2019-08-07 16:33 | NUR ---
PT RESTING IN BED. VOICES NO CONCERNS AT THIS TIME. RESPS EASY AND NON LABORED. OXYGEN 4L VIA NASAL CANNULA INTACT. NO S/S OF DISTRESS NOTED. CALL LIGHT WITHIN REACH.
[2019-08-07 20:00] VITALS: BP 108/42
--- NOTE | 2019-08-07 20:15 | NUR ---
PATIENT ASSESSMENT COMPLETE WITHOUT INCIDENT, PATIENT DENIES ANY CHEST PAIN OR PRESSURE AT THIS TIME. CURRENT NASAL CANNULA OXYGEN IS AT 4LPM PATIENT COMPLAINS OF SOME SHORTNESS OF BREATH. PATIENT ALERT AND ORIENTED X3 AT THIS TIME. CALL LIGHT WITHIN REACH, WILL CONTINUE TO MONITOR.
--- NOTE | 2019-08-07 22:30 | NUR ---
24 HOUR CHART CHECK COMPLETE
--- NOTE | 2019-08-07 22:44 | NUR ---
DR. GEIGER NOTIFIED OF PATIENT CHANGE IN ORIENTATION TO LETHARGIC BUT AROUSABLE AND SPO2 ON 4LPM NC 88-89%, O2 INCREASED TO 6LPM SPO2 91-94%. ABG ORDERED AT THIS TIME AND CONSULT TO ROMEL.
--- NOTE | 2019-08-07 23:15 | NUR ---
DR. URENA NOTIFIED AT THIS TIME OF CONSULT AND ABG RESULTS ORDERED BY DR. GEIGER. ORDERS RECIEVED FOR BIPAP AND ABG'S.
[2019-08-07 23:17] LABS: ABG BASE EXCESS 5.3 mmol/L (-2.0-2.0); ARTERIAL BLOOD GAS PH 7.323 (7.35-7.45)
[2019-08-08] VITALS: BP 114/51
[2019-08-08 08:00] VITALS: BP 118/55
[2019-08-08 08:13] LABS: ABG BASE EXCESS 6.7 mmol/L (-2.0-2.0); ARTERIAL BLOOD GAS PH 7.404 (7.35-7.45)
[2019-08-08 12:00] VITALS: BP 124/53
--- NOTE | 2019-08-08 15:30 | NUR ---
Pt taken off BiPap per pt request. Placed pt on 6L NC. Will continue to monitor pulse ox and WOB.
[2019-08-08 16:46] VITALS: BP 127/55
[2019-08-08 20:00] VITALS: BP 127/59
[2019-08-09] VITALS: BP 127/56
--- NOTE | 2019-08-09 01:05 | NUR ---
08/08/19 22:45 PT REFUSING BIPAP FOR THE NIGHT. RESPS REGULAR AND UNLABORED.
[2019-08-09 07:42] LABS: ALBUMIN 3.7 gm/dl (3.1-4.5); ALKALINE PHOSPHATASE 57 U/L (45-117); CHLORIDE 103 mmol/L (98-107); CREATININE 0.62 mg/dL (0.55-1.02); POTASSIUM 4.6 mmol/L (3.5-5.1); SGOT/AST 9 IU/L (3-35); SGPT/ALT 19 U/L (12-78); SODIUM 142 mmol/L (136-145); TOTAL PROTEIN 6.9 gm/dL (6.4-8.2)
[2019-08-09 07:44] LABS: BUN 22 mg/dl (7-24)
[2019-08-09 08:00] VITALS: BP 138/70
--- NOTE | 2019-08-09 11:36 | NUR ---
Public Administration Teacher in to talk to patient. Patient states lives at HOME with . There are NO steps in the home. Physician: FELICIANO Pharmacy: [facility] Home health services: NONE Patient's level of ADLs: INDEPENDENT Patient has working utilities: YES DME: NONE Follow-up physician's appointment after d/c: WILL BE MADE BY HOSPITALIST NURSE DIRECTOR ON DISCHARGE Does patient want to access PORTAL?: NO Discharge plan PT LIVES AT HOME WITH HER AND IS INDEPENDENT IN HER CARE. DENIES SHE WILL HAVE ANY NEEDS. PLANS TO RETURN HOME WHEN MEDICALLY STABLE. WILL CONTINUE TO FOLLOW. WILL HAVE A RID E HOME PER PT. . BIANCA RITCHIE
[2019-08-09 12:00] VITALS: BP 110/61
--- NOTE | 2019-08-09 16:00 | NUR ---
PATIENT TRANSFERRED FROM [facility] AT THIS TIME WITHOUT INCIDENT. ASSESSMENT COMPLETED AT THIS TIME. PATIENT ORIENTED TO ROOM, CALL LIGHT AT THIS TIME. PATIENT CURRENTLY ON NC 4LPM AT THIS TIME. CALL LIGHT WITHIN REACH, WILL CONTINUE TO MONITOR.
[2019-08-09 20:00] VITALS: BP 121/58
--- NOTE | 2019-08-09 22:00 | NUR ---
24 HOUR CHART CHECK COMPLETED
--- NOTE | 2019-08-09 23:25 | NUR ---
Pt placed on BiPap 16/10 and an FiO2 of 40%. Alarms on and audible.
[2019-08-10] VITALS: BP 122/69
[2019-08-10 07:01] LABS: ALBUMIN 3.6 gm/dl (3.1-4.5); ALKALINE PHOSPHATASE 56 U/L (45-117); BUN 18 mg/dl (7-24); CHLORIDE 103 mmol/L (98-107); CREATININE 0.62 mg/dL (0.55-1.02); SGOT/AST 7 IU/L (3-35); SGPT/ALT 18 U/L (12-78); SODIUM 142 mmol/L (136-145); TOTAL PROTEIN 6.9 gm/dL (6.4-8.2)
[2019-08-10 08:00] VITALS: BP 130/63
[2019-08-10 12:00] VITALS: BP 129/61
--- NOTE | 2019-08-10 12:57 | NUR ---
PT CONTINUES TO DENY NEEDS ON DISCHARGE. WILL RETURN HOME WHEN MEDICALLY STABLE.
[2019-08-10 16:00] VITALS: BP 123/50
[2019-08-10 20:00] VITALS: BP 135/56
--- NOTE | 2019-08-10 23:00 | NUR ---
PT. REFUSED BIPAP.
[2019-08-11] VITALS: BP 118/47
[2019-08-11 07:02] LABS: ALBUMIN 3.4 gm/dl (3.1-4.5); ALKALINE PHOSPHATASE 52 U/L (45-117); BUN 19 mg/dl (7-24); CHLORIDE 104 mmol/L (98-107); CREATININE 0.55 mg/dL (0.55-1.02); POTASSIUM 4.6 mmol/L (3.5-5.1); SGOT/AST 10 IU/L (3-35); SGPT/ALT 18 U/L (12-78); SODIUM 141 mmol/L (136-145); TOTAL PROTEIN 6.4 gm/dL (6.4-8.2)
[2019-08-11 08:00] VITALS: BP 116/63
[2019-08-11 12:00] VITALS: BP 120/65
[2019-08-11 16:00] VITALS: BP 110/72
[2019-08-11 20:00] VITALS: BP 126/51
[2019-08-12] VITALS: BP 106/40
[2019-08-12 08:00] VITALS: BP 122/60
[2019-08-12 12:00] VITALS: BP 117/62
[2019-08-12 16:00] VITALS: BP 126/55
[2019-08-12] MEDS ORDERED: LEVAQUIN750 M1 PO (18:13)
--- NOTE | 2019-08-12 18:39 | NUR ---
Discharge instructions reviewed with patient/family. Patient receptive and verbalizes understanding. Follow-up care arranged. Written instructions given to patient/family. COREY JETT
== END 2019-08-12 18:39 | disposition home or self-care (01) | DRG 189 ==
LOC: ED 10:25 → EDHOLD 14:20 → 4E 14:20 → 5E 08-09 15:48
PROVIDERS: Emergency Medicine; Internal Medicine Critical Care Medicine; ADMIT Internal Medicine
PROC: 5A09357 Assistance with Respiratory Ventilation, Less than 24 Consecutive Hours, Continuous Positive Airway Pressure (ICD-10-PCS; principal; 2019-08-08)
PROC: 5A09357 Assistance with Respiratory Ventilation, Less than 24 Consecutive Hours, Continuous Positive Airway Pressure (ICD-10-PCS; 2019-08-10)
DX: J96.21 Acute and chronic respiratory failure with hypoxia (principal); I50.43 Acute on chronic combined systolic (congestive) and diastolic (congestive) heart failure; J44.1 Chronic obstructive pulmonary disease with (acute) exacerbation; J84.9 Interstitial pulmonary disease, unspecified; E87.3 Alkalosis; J44.0 Chronic obstructive pulmonary disease with (acute) lower respiratory infection; J96.22 Acute and chronic respiratory failure with hypercapnia; I11.0 Hypertensive heart disease with heart failure; E11.9 Type 2 diabetes mellitus without complications; F17.200 Nicotine dependence, unspecified, uncomplicated; E66.01 Morbid (severe) obesity due to excess calories; K21.9 Gastro-esophageal reflux disease without esophagitis; K57.90 Diverticulosis of intestine, part unspecified, without perforation or abscess without bleeding; J20.8 Acute bronchitis due to other specified organisms; I25.10 Atherosclerotic heart disease of native coronary artery without angina pectoris; Z86.73 Personal history of transient ischemic attack (TIA), and cerebral infarction without residual deficits; Z88.1 Allergy status to other antibiotic agents; Z88.5 Allergy status to narcotic agent; Z88.8 Allergy status to other drugs, medicaments and biological substances; Z87.440 Personal history of urinary (tract) infections; Z90.49 Acquired absence of other specified parts of digestive tract; Z90.710 Acquired absence of both cervix and uterus; Z98.51 Tubal ligation status; Z82.49 Family history of ischemic heart disease and other diseases of the circulatory system; Z83.3 Family history of diabetes mellitus; Z99.81 Dependence on supplemental oxygen; Z71.6 Tobacco abuse counseling; Z80.0 Family history of malignant neoplasm of digestive organs; Z68.39 Body mass index [BMI] 39.0-39.9, adult

== ENCOUNTER 2020-01-11 17:20 | Emergency (ER) | payer OTHER ==
[~2020-01-11] VITALS: Ht 167.6 cm; Wt 118.4 kg
[~2020-01-11 17:20] MED LIST changes: +LEVAQUIN750 M1 PO
[2020-01-11 18:16] LABS: BASO % 0.5 % (0.0-1.0); EOS # 0.1 10*3/uL (0.0-0.4); EOS % 1.4 % (1.0-4.0); HEMATOCRIT 37.9 % (37.0-47.0); LYMPH # 1.5 10*3/uL (1.3-4.4); LYMPH % 18.3 % (27.0-41.0); MEAN CELL VOLUME 98.2 fl (81.0-99.0); MEAN CORPUSCULAR HGB 30.8 pg (27.0-31.0); MEAN CORPUSCULAR HGB CONC 31.4 g/dl (33.0-37.0); MEAN PLATELET VOLUME 10.3 fl (9.6-12.3); MONO # 0.5 10*3/uL (0.1-1.0); MONO % 5.6 % (3.0-9.0); NEUT # 6.2 10*3/uL (2.3-7.9); NEUT % 73.7 % (47.0-73.0); PLATELET COUNT AUTOMATED 254 10*3/uL (130-400); RED BLOOD COUNT 3.86 10*6/uL (4.10-5.10); RED CELL DISTRI WIDTH 14.6 % (0-14.5); WHITE BLOOD COUNT 8.4 10*3/uL (4.8-10.8)
[2020-01-11 18:27] LABS: INTERNATIONAL NORM RATIO 0.9 (2.0-3.5)
[2020-01-11 18:32] LABS: ALBUMIN 3.7 gm/dl (3.1-4.5); ALKALINE PHOSPHATASE 54 U/L (45-117); BUN 9 mg/dl (7-24); CHLORIDE 105 mmol/L (98-107); POTASSIUM 4.4 mmol/L (3.5-5.1); SGOT/AST 9 IU/L (3-35); SGPT/ALT 23 U/L (12-78); SODIUM 142 mmol/L (136-145); TOTAL PROTEIN 6.5 gm/dL (6.4-8.2)
[2020-01-11 18:44] LABS: TROPONIN I < 0.015 ng/ml (<0.045)
[2020-01-11] MEDS ORDERED: LASIX40 MG PO (19:42)
== END 2020-01-11 20:57 | disposition home or self-care (01) ==
LOC: ED 17:20
PROVIDERS: Emergency Medicine
DX: I11.0 Hypertensive heart disease with heart failure (principal); I50.9 Heart failure, unspecified; J45.909 Unspecified asthma, uncomplicated; F32.9 Major depressive disorder, single episode, unspecified; E78.00 Pure hypercholesterolemia, unspecified; F17.200 Nicotine dependence, unspecified, uncomplicated; Z88.5 Allergy status to narcotic agent; Z88.8 Allergy status to other drugs, medicaments and biological substances; Z79.899 Other long term (current) drug therapy; Z79.4 Long term (current) use of insulin; Z79.84 Long term (current) use of oral hypoglycemic drugs; Z86.73 Personal history of transient ischemic attack (TIA), and cerebral infarction without residual deficits

== ENCOUNTER → 2020-04-10 | Outpatient (CLI) | payer OTHER ==
[~2020-04-10] MED LIST changes: +LASIX40 MG PO
[2020-04-10 08:41] LABS: BASO % 0.5 % (0.0-1.0); EOS # 0.1 10*3/uL (0.0-0.4); HEMATOCRIT 45.5 % (37.0-47.0); LYMPH # 1.7 10*3/uL (1.3-4.4); LYMPH % 19.7 % (27.0-41.0); MEAN CELL VOLUME 92.9 fl (81.0-99.0); MEAN CORPUSCULAR HGB 29.6 pg (27.0-31.0); MEAN CORPUSCULAR HGB CONC 31.9 g/dl (33.0-37.0); MEAN PLATELET VOLUME 10.4 fl (9.6-12.3); MONO # 0.5 10*3/uL (0.1-1.0); MONO % 5.3 % (3.0-9.0); NEUT # 6.5 10*3/uL (2.3-7.9); PLATELET COUNT AUTOMATED 298 10*3/uL (130-400); RED CELL DISTRI WIDTH 13.9 % (0-14.5); WHITE BLOOD COUNT 8.8 10*3/uL (4.8-10.8)
[2020-04-10 09:19] LABS: ALBUMIN 3.7 gm/dl (3.1-4.5); BUN 11 mg/dl (7-24); CHLORIDE 102 mmol/L (98-107); POTASSIUM 4.2 mmol/L (3.5-5.1); SODIUM 140 mmol/L (136-145)
[2020-04-10 09:29] LABS: ALKALINE PHOSPHATASE 80 U/L (45-117); CHOLESTEROL 149 mg/dL (<200); CREATININE 0.57 mg/dL (0.55-1.02); HDL CHOLESTEROL 36 mg/dl (40-60); LDL CHOLESTEROL 82 mg/dL (9-159); SGOT/AST 12 IU/L (3-35); SGPT/ALT 18 U/L (12-78); THYROID STIM HORMONE (HS) 0.644 uIU/ml (0.358-4.75); TOTAL PROTEIN 7.6 gm/dL (6.4-8.2); TRIGLYCERIDES 155 mg/dl (<150); VLDL CHOLESTEROL 31 mg/dL (6-40)
[2020-04-10 10:09] LABS: VITAMIN D, 25-HYDROXY 15.1 ng/mL (30-100)
== END | disposition home or self-care (01) ==
LOC: LAB 08:21 → MAMMO 09:30
PROVIDERS: ATTEND Internal Medicine
DX: Z12.31 Encounter for screening mammogram for malignant neoplasm of breast (principal); I10 Essential (primary) hypertension; E55.9 Vitamin D deficiency, unspecified

== ENCOUNTER 2020-08-22 11:31 | Inpatient (IN) | payer OTHER ==
[~2020-08-22] VITALS: Ht 167.6 cm; Wt 107.3 kg
[2020-08-22 11:38] VITALS: BP 131/58
[2020-08-22 12:01] LABS: BASO % 0.4 % (0.0-1.0); EOS # 0.1 10*3/uL (0.0-0.4); EOS % 0.5 % (1.0-4.0); HEMATOCRIT 33.4 % (37.0-47.0); LYMPH # 1.6 10*3/uL (1.3-4.4); LYMPH % 14.5 % (27.0-41.0); MEAN CELL VOLUME 90.3 fl (81.0-99.0); MEAN CORPUSCULAR HGB 26.5 pg (27.0-31.0); MEAN CORPUSCULAR HGB CONC 29.3 g/dl (33.0-37.0); MEAN PLATELET VOLUME 10.3 fl (9.6-12.3); MONO # 0.6 10*3/uL (0.1-1.0); MONO % 5.6 % (3.0-9.0); NEUT # 8.8 10*3/uL (2.3-7.9); NEUT % 78.6 % (47.0-73.0); PLATELET COUNT AUTOMATED 394 10*3/uL (130-400); RED CELL DISTRI WIDTH 13.9 % (0-14.5); WHITE BLOOD COUNT 11.1 10*3/uL (4.8-10.8)
[2020-08-22 12:12] LABS: ACT PARTIAL THROMBO TIME 25.3 SECONDS (20.0-32.1)
[2020-08-22 12:18] LABS: ALBUMIN 3.5 gm/dl (3.1-4.5); ALKALINE PHOSPHATASE 78 U/L (45-117); BUN 12 mg/dl (7-24); CHLORIDE 102 mmol/L (98-107); CREATININE 0.76 mg/dL (0.55-1.02); POTASSIUM 3.9 mmol/L (3.5-5.1); SGOT/AST 13 IU/L (3-35); SGPT/ALT 18 U/L (12-78); SODIUM 140 mmol/L (136-145)
[2020-08-22 12:22] LABS: TROPONIN I < 0.015 ng/ml (<0.045)
[2020-08-22 16:00] VITALS: BP 108/52
[2020-08-22] MEDS ORDERED: NAPROSYN500 MG PO (17:15)
[2020-08-22] MEDS ORDERED: AMLODIPINE BES2.5 MG PO (18:04)
[2020-08-22] MEDS ORDERED: ZESTRIL20 MG PO (18:09)
[2020-08-22] MEDS ORDERED: HYDROCHLOROTH12.5 M2 PO (18:09)
[2020-08-22 20:00] VITALS: BP 132/61
[2020-08-23] VITALS: BP 119/61
[2020-08-23 08:00] VITALS: BP 106/46
[2020-08-23 12:00] VITALS: BP 110/55
[2020-08-23 16:00] VITALS: BP 116/45
[2020-08-23 20:00] VITALS: BP 115/41
[2020-08-24] VITALS: BP 102/51
[2020-08-24 08:00] VITALS: BP 106/47
[2020-08-24 12:00] VITALS: BP 114/52
[2020-08-24 16:00] VITALS: BP 111/42
[2020-08-24 20:00] VITALS: BP 91/46
[2020-08-25] VITALS: BP 111/53
[2020-08-25 06:12] LABS: BUN 26 mg/dl (7-24); CHLORIDE 98 mmol/L (98-107); POTASSIUM 4.7 mmol/L (3.5-5.1); SODIUM 136 mmol/L (136-145)
[2020-08-25 06:33] LABS: BASO % 0.3 % (0.0-1.0); LYMPH # 1.7 10*3/uL (1.3-4.4); LYMPH % 15.4 % (27.0-41.0); MEAN CELL VOLUME 88.9 fl (81.0-99.0); MEAN CORPUSCULAR HGB 26.4 pg (27.0-31.0); MEAN CORPUSCULAR HGB CONC 29.7 g/dl (33.0-37.0); MEAN PLATELET VOLUME 10.8 fl (9.6-12.3); MONO # 0.6 10*3/uL (0.1-1.0); MONO % 5.2 % (3.0-9.0); NEUT # 8.7 10*3/uL (2.3-7.9); NEUT % 78.6 % (47.0-73.0); PLATELET COUNT AUTOMATED 423 10*3/uL (130-400); RED CELL DISTRI WIDTH 14.2 % (0-14.5)
[2020-08-25 08:00] VITALS: BP 104/56
[2020-08-25 16:00] VITALS: BP 106/36
[2020-08-25 20:00] VITALS: BP 100/49
[2020-08-26] VITALS (7 sets, daily range): BP systolic 87–112; BP diastolic 26–54
[2020-08-27] VITALS: BP 110/53
[2020-08-27 08:00] VITALS: BP 116/53; BP 122/62
[2020-08-27] MEDS ORDERED: PREDNISONE5 MG PO ×2 (08:19)
[2020-08-27] MEDS ORDERED: CEFUROXIME AXE250 MG PO ×2 (08:19)
[2020-08-27] MEDS ORDERED: PROTONIX40 MG PO ×2 (08:22)
[2020-08-27 12:00] VITALS: BP 87/64
== END 2020-08-27 15:38 | disposition home or self-care (01) | DRG 377 ==
LOC: ED 11:31 → EDHOLD 14:28 → 5E 14:28
PROVIDERS: Internal Medicine; Internal Medicine Gastroenterology; ADMIT Internal Medicine; ATTEND Internal Medicine
PROC: 4A02XM4 Measurement of Cardiac Total Activity, External Approach (ICD-10-PCS; principal; 2020-08-25)
PROC: 3E073KZ Introduction of Other Diagnostic Substance into Coronary Artery, Percutaneous Approach (ICD-10-PCS; 2020-08-25)
PROC: 0DB68ZX Excision of Stomach, Via Natural or Artificial Opening Endoscopic, Diagnostic (ICD-10-PCS; 2020-08-26)
PROC: 0DJD8ZZ Inspection of Lower Intestinal Tract, Via Natural or Artificial Opening Endoscopic (ICD-10-PCS; 2020-08-26)
DX: K29.71 Gastritis, unspecified, with bleeding (principal); I50.31 Acute diastolic (congestive) heart failure; J44.1 Chronic obstructive pulmonary disease with (acute) exacerbation; J44.0 Chronic obstructive pulmonary disease with (acute) lower respiratory infection; K57.31 Diverticulosis of large intestine without perforation or abscess with bleeding; E11.8 Type 2 diabetes mellitus with unspecified complications; J20.9 Acute bronchitis, unspecified; I25.10 Atherosclerotic heart disease of native coronary artery without angina pectoris; Z86.73 Personal history of transient ischemic attack (TIA), and cerebral infarction without residual deficits; F17.210 Nicotine dependence, cigarettes, uncomplicated; Z88.1 Allergy status to other antibiotic agents; Z88.5 Allergy status to narcotic agent; Z88.8 Allergy status to other drugs, medicaments and biological substances; Z79.899 Other long term (current) drug therapy; Z90.49 Acquired absence of other specified parts of digestive tract; Z90.710 Acquired absence of both cervix and uterus; K44.9 Diaphragmatic hernia without obstruction or gangrene

== ENCOUNTER 2020-09-09 10:37 | Emergency (ER) | payer OTHER ==
[~2020-09-09] VITALS: Wt 109.3 kg
[~2020-09-09 10:37] MED LIST changes: +HYDROCHLOROTH12.5 M2 PO; +NAPROSYN500 MG PO; +PROTONIX40 MG PO; +ZESTRIL20 MG PO
[2020-09-09 11:14] LABS: BASO % 0.3 % (0.0-1.0); EOS % 0.3 % (1.0-4.0); HEMATOCRIT 31.5 % (37.0-47.0); LYMPH # 1.6 10*3/uL (1.3-4.4); LYMPH % 13.7 % (27.0-41.0); MEAN CELL VOLUME 86.1 fl (81.0-99.0); MEAN CORPUSCULAR HGB 25.4 pg (27.0-31.0); MEAN CORPUSCULAR HGB CONC 29.5 g/dl (33.0-37.0); MEAN PLATELET VOLUME 9.9 fl (9.6-12.3); MONO # 0.7 10*3/uL (0.1-1.0); MONO % 5.8 % (3.0-9.0); NEUT # 9.2 10*3/uL (2.3-7.9); NEUT % 79.4 % (47.0-73.0); PLATELET COUNT AUTOMATED 418 10*3/uL (130-400); RED BLOOD COUNT 3.66 10*6/uL (4.10-5.10); RED CELL DISTRI WIDTH 14.6 % (0-14.5); WHITE BLOOD COUNT 11.6 10*3/uL (4.8-10.8)
[2020-09-09 11:31] LABS: ALBUMIN 3.5 gm/dl (3.1-4.5); ALKALINE PHOSPHATASE 86 U/L (45-117); BUN 13 mg/dl (7-24); CHLORIDE 98 mmol/L (98-107); POTASSIUM 3.7 mmol/L (3.5-5.1); SGOT/AST 9 IU/L (3-35); SGPT/ALT 20 U/L (12-78); SODIUM 136 mmol/L (136-145); TOTAL PROTEIN 7.3 gm/dL (6.4-8.2)
[2020-09-09 11:34] LABS: TROPONIN I < 0.015 ng/ml (<0.045)
== END 2020-09-09 13:07 | disposition home or self-care (01) ==
LOC: ED 10:37
PROVIDERS: Family Medicine
DX: R09.02 Hypoxemia (principal); J44.9 Chronic obstructive pulmonary disease, unspecified; I10 Essential (primary) hypertension; F32.9 Major depressive disorder, single episode, unspecified; E78.00 Pure hypercholesterolemia, unspecified; F17.200 Nicotine dependence, unspecified, uncomplicated; Z88.8 Allergy status to other drugs, medicaments and biological substances; Z88.1 Allergy status to other antibiotic agents; Z88.5 Allergy status to narcotic agent; Z79.899 Other long term (current) drug therapy; Z79.82 Long term (current) use of aspirin; Z90.711 Acquired absence of uterus with remaining cervical stump; Z90.49 Acquired absence of other specified parts of digestive tract; Z86.73 Personal history of transient ischemic attack (TIA), and cerebral infarction without residual deficits; Z86.14 Personal history of Methicillin resistant Staphylococcus aureus infection

== ENCOUNTER 2020-10-07 10:18 | Inpatient (IN) | payer OTHER ==
[~2020-10-07] VITALS: Ht 167.6 cm; Wt 105.9 kg
[2020-10-07] VITALS (16 sets, daily range): BP systolic 87–130; BP diastolic 40–63
[2020-10-07 11:23] LABS: BASO # 0.1 10*3/uL (0.0-0.1); BASO % 0.5 % (0.0-1.0); EOS % 0.4 % (1.0-4.0); HEMATOCRIT 32.9 % (37.0-47.0); LYMPH # 1.7 10*3/uL (1.3-4.4); LYMPH % 15.9 % (27.0-41.0); MEAN CELL VOLUME 80.4 fl (81.0-99.0); MEAN CORPUSCULAR HGB 23.2 pg (27.0-31.0); MEAN CORPUSCULAR HGB CONC 28.9 g/dl (33.0-37.0); MEAN PLATELET VOLUME 10.1 fl (9.6-12.3); MONO # 0.6 10*3/uL (0.1-1.0); NEUT % 76.8 % (47.0-73.0); PLATELET COUNT AUTOMATED 414 10*3/uL (130-400); RED BLOOD COUNT 4.09 10*6/uL (4.10-5.10); RED CELL DISTRI WIDTH 15.7 % (0-14.5); WHITE BLOOD COUNT 10.4 10*3/uL (4.8-10.8)
[2020-10-07 11:34] LABS: ACT PARTIAL THROMBO TIME 26.2 SECONDS (20.0-32.1)
[2020-10-07 11:41] LABS: ALBUMIN 3.8 gm/dl (3.1-4.5); ALKALINE PHOSPHATASE 94 U/L (45-117); BUN 9 mg/dl (7-24); CHLORIDE 98 mmol/L (98-107); CREATININE 0.65 mg/dL (0.55-1.02); LIPASE 88 U/L (73-393); POTASSIUM 3.7 mmol/L (3.5-5.1); SGOT/AST 9 IU/L (3-35); SGPT/ALT 16 U/L (12-78); SODIUM 136 mmol/L (136-145); TOTAL PROTEIN 7.8 gm/dL (6.4-8.2)
[2020-10-07 11:44] LABS: TROPONIN I < 0.015 ng/ml (<0.045)
[2020-10-07] MEDS ORDERED: ZESTORETIC 20-1 EACH PO (19:31)
[2020-10-07 23:36] LABS: ABG BASE EXCESS 7.5 mmol/L (-2.0-2.0); ARTERIAL BLOOD GAS PH 7.319 (7.35-7.45); ARTERIAL BLOOD GAS PO2 83.7 (80-90)
[2020-10-08] VITALS: BP 139/68
[2020-10-08 07:56] LABS: ABG BASE EXCESS 8.3 mmol/L (-2.0-2.0); ARTERIAL BLOOD GAS PH 7.351 (7.35-7.45)
[2020-10-08 08:00] VITALS: BP 119/63
[2020-10-08 12:00] VITALS: BP 113/50
[2020-10-08 16:00] VITALS: BP 95/43
[2020-10-08 19:24] VITALS: BP 102/54
[2020-10-08 20:00] VITALS: BP 120/44
[2020-10-09] VITALS: BP 104/61
[2020-10-09 08:00] VITALS: BP 110/53
[2020-10-09 12:00] VITALS: BP 104/47
[2020-10-09 12:58] LABS: BASO % 0.1 % (0.0-1.0); HEMATOCRIT 32.6 % (37.0-47.0); LYMPH # 1.5 10*3/uL (1.3-4.4); LYMPH % 11.6 % (27.0-41.0); MEAN CELL VOLUME 80.3 fl (81.0-99.0); MEAN CORPUSCULAR HGB 22.9 pg (27.0-31.0); MEAN CORPUSCULAR HGB CONC 28.5 g/dl (33.0-37.0); MEAN PLATELET VOLUME 10.2 fl (9.6-12.3); MONO # 0.9 10*3/uL (0.1-1.0); MONO % 6.8 % (3.0-9.0); NEUT # 10.4 10*3/uL (2.3-7.9); PLATELET COUNT AUTOMATED 446 10*3/uL (130-400); RED BLOOD COUNT 4.06 10*6/uL (4.10-5.10); RED CELL DISTRI WIDTH 15.8 % (0-14.5); WHITE BLOOD COUNT 12.9 10*3/uL (4.8-10.8)
[2020-10-09 13:25] LABS: ALBUMIN 3.5 gm/dl (3.1-4.5); ALKALINE PHOSPHATASE 84 U/L (45-117); BUN 25 mg/dl (7-24); CHLORIDE 94 mmol/L (98-107); CREATININE 0.71 mg/dL (0.55-1.02); SGOT/AST 6 IU/L (3-35); SGPT/ALT 15 U/L (12-78); SODIUM 136 mmol/L (136-145); TOTAL PROTEIN 7.4 gm/dL (6.4-8.2)
[2020-10-09 16:00] VITALS: BP 106/54
[2020-10-09 20:00] VITALS: BP 120/52
[2020-10-10] VITALS: BP 96/51
[2020-10-10 06:20] LABS: ALBUMIN 3.3 gm/dl (3.1-4.5); ALKALINE PHOSPHATASE 75 U/L (45-117); BUN 23 mg/dl (7-24); CHLORIDE 96 mmol/L (98-107); POTASSIUM 4.7 mmol/L (3.5-5.1); SGOT/AST 8 IU/L (3-35); SGPT/ALT 15 U/L (12-78); SODIUM 135 mmol/L (136-145); TOTAL PROTEIN 6.6 gm/dL (6.4-8.2)
[2020-10-10 06:31] LABS: BASO % 0.2 % (0.0-1.0); HEMATOCRIT 30.9 % (37.0-47.0); LYMPH # 1.2 10*3/uL (1.3-4.4); MEAN CELL VOLUME 80.9 fl (81.0-99.0); MEAN CORPUSCULAR HGB CONC 28.5 g/dl (33.0-37.0); MEAN PLATELET VOLUME 10.6 fl (9.6-12.3); MONO # 0.4 10*3/uL (0.1-1.0); MONO % 4.3 % (3.0-9.0); NEUT # 8.3 10*3/uL (2.3-7.9); NEUT % 83.1 % (47.0-73.0); PLATELET COUNT AUTOMATED 410 10*3/uL (130-400); RED BLOOD COUNT 3.82 10*6/uL (4.10-5.10); RED CELL DISTRI WIDTH 15.8 % (0-14.5)
[2020-10-10 08:00] VITALS: BP 114/50
[2020-10-10 12:00] VITALS: BP 132/48
[2020-10-10 16:00] VITALS: BP 105/51
[2020-10-10 20:00] VITALS: BP 120/36
[2020-10-11] VITALS: BP 99/52
[2020-10-11 06:16] LABS: BASO % 0.1 % (0.0-1.0); HEMATOCRIT 31.8 % (37.0-47.0); LYMPH # 1.7 10*3/uL (1.3-4.4); LYMPH % 16.2 % (27.0-41.0); MEAN CELL VOLUME 82.4 fl (81.0-99.0); MEAN CORPUSCULAR HGB 22.5 pg (27.0-31.0); MEAN CORPUSCULAR HGB CONC 27.4 g/dl (33.0-37.0); MEAN PLATELET VOLUME 10.8 fl (9.6-12.3); MONO # 0.5 10*3/uL (0.1-1.0); MONO % 4.6 % (3.0-9.0); NEUT # 8.2 10*3/uL (2.3-7.9); NEUT % 78.6 % (47.0-73.0); PLATELET COUNT AUTOMATED 410 10*3/uL (130-400); RED BLOOD COUNT 3.86 10*6/uL (4.10-5.10); RED CELL DISTRI WIDTH 16.1 % (0-14.5); WHITE BLOOD COUNT 10.5 10*3/uL (4.8-10.8)
[2020-10-11 06:44] LABS: ALBUMIN 3.4 gm/dl (3.1-4.5); ALKALINE PHOSPHATASE 73 U/L (45-117); BUN 26 mg/dl (7-24); CHLORIDE 96 mmol/L (98-107); CREATININE 0.65 mg/dL (0.55-1.02); POTASSIUM 4.7 mmol/L (3.5-5.1); SGOT/AST 7 IU/L (3-35); SGPT/ALT 14 U/L (12-78); SODIUM 138 mmol/L (136-145); TOTAL PROTEIN 6.7 gm/dL (6.4-8.2)
[2020-10-11 08:00] VITALS: BP 111/47
[2020-10-11 12:00] VITALS: BP 102/40
[2020-10-11 16:00] VITALS: BP 107/42
[2020-10-11 20:00] VITALS: BP 104/43
[2020-10-12] VITALS: BP 99/48
[2020-10-12 05:59] LABS: ALBUMIN 3.3 gm/dl (3.1-4.5); BASO % 0.1 % (0.0-1.0); BUN 28 mg/dl (7-24); CHLORIDE 96 mmol/L (98-107); CREATININE 0.67 mg/dL (0.55-1.02); HEMATOCRIT 31.2 % (37.0-47.0); LYMPH # 1.4 10*3/uL (1.3-4.4); LYMPH % 11.7 % (27.0-41.0); MEAN CORPUSCULAR HGB 23.1 pg (27.0-31.0); MEAN CORPUSCULAR HGB CONC 28.5 g/dl (33.0-37.0); MONO # 0.4 10*3/uL (0.1-1.0); MONO % 3.5 % (3.0-9.0); NEUT # 10.2 10*3/uL (2.3-7.9); NEUT % 83.9 % (47.0-73.0); PLATELET COUNT AUTOMATED 429 10*3/uL (130-400); POTASSIUM 4.5 mmol/L (3.5-5.1); RED BLOOD COUNT 3.85 10*6/uL (4.10-5.10); SGOT/AST 3 IU/L (3-35); SGPT/ALT 15 U/L (12-78); SODIUM 135 mmol/L (136-145); TOTAL PROTEIN 6.6 gm/dL (6.4-8.2); WHITE BLOOD COUNT 12.1 10*3/uL (4.8-10.8)
[2020-10-12 06:00] LABS: ALKALINE PHOSPHATASE 72 U/L (45-117)
[2020-10-12 08:00] VITALS: BP 102/46
[2020-10-12 12:00] VITALS: BP 121/56
[2020-10-12 16:00] VITALS: BP 106/45
[2020-10-12 20:00] VITALS: BP 97/37
[2020-10-12 20:05] VITALS: BP 110/50
[2020-10-13] VITALS: BP 104/69
[2020-10-13 06:21] LABS: BASO % 0.2 % (0.0-1.0); EOS % 0.3 % (1.0-4.0); HEMATOCRIT 32.9 % (37.0-47.0); LYMPH # 3.5 10*3/uL (1.3-4.4); LYMPH % 32.6 % (27.0-41.0); MEAN CELL VOLUME 79.3 fl (81.0-99.0); MEAN CORPUSCULAR HGB 22.7 pg (27.0-31.0); MEAN CORPUSCULAR HGB CONC 28.6 g/dl (33.0-37.0); MEAN PLATELET VOLUME 10.8 fl (9.6-12.3); MONO # 0.6 10*3/uL (0.1-1.0); MONO % 5.8 % (3.0-9.0); NEUT # 6.4 10*3/uL (2.3-7.9); NEUT % 60.4 % (47.0-73.0); PLATELET COUNT AUTOMATED 426 10*3/uL (130-400); RED BLOOD COUNT 4.15 10*6/uL (4.10-5.10); RED CELL DISTRI WIDTH 16.3 % (0-14.5); WHITE BLOOD COUNT 10.7 10*3/uL (4.8-10.8)
[2020-10-13 06:38] LABS: ALBUMIN 3.2 gm/dl (3.1-4.5); BUN 30 mg/dl (7-24); CHLORIDE 96 mmol/L (98-107); POTASSIUM 4.1 mmol/L (3.5-5.1); SODIUM 137 mmol/L (136-145)
[2020-10-13 06:41] LABS: ALKALINE PHOSPHATASE 68 U/L (45-117); CREATININE 0.64 mg/dL (0.55-1.02); SGOT/AST 9 IU/L (3-35); SGPT/ALT 14 U/L (12-78); TOTAL PROTEIN 6.4 gm/dL (6.4-8.2)
[2020-10-13 12:00] VITALS: BP 103/49
[2020-10-13 16:00] VITALS: BP 96/41
[2020-10-13 20:00] VITALS: BP 105/57
[2020-10-14] VITALS: BP 106/55
[2020-10-14 06:15] LABS: BASO % 0.2 % (0.0-1.0); EOS # 0.1 10*3/uL (0.0-0.4); EOS % 0.4 % (1.0-4.0); LYMPH # 3.2 10*3/uL (1.3-4.4); LYMPH % 24.1 % (27.0-41.0); MEAN CELL VOLUME 81.3 fl (81.0-99.0); MEAN CORPUSCULAR HGB 22.9 pg (27.0-31.0); MEAN CORPUSCULAR HGB CONC 28.2 g/dl (33.0-37.0); MEAN PLATELET VOLUME 10.6 fl (9.6-12.3); MONO # 0.7 10*3/uL (0.1-1.0); MONO % 5.3 % (3.0-9.0); NEUT # 9.2 10*3/uL (2.3-7.9); NEUT % 69.4 % (47.0-73.0); PLATELET COUNT AUTOMATED 424 10*3/uL (130-400); RED BLOOD COUNT 4.06 10*6/uL (4.10-5.10); RED CELL DISTRI WIDTH 16.7 % (0-14.5); WHITE BLOOD COUNT 13.2 10*3/uL (4.8-10.8)
[2020-10-14 06:18] LABS: BUN 21 mg/dl (7-24); CHLORIDE 103 mmol/L (98-107); CREATININE 0.58 mg/dL (0.55-1.02); POTASSIUM 4.8 mmol/L (3.5-5.1); SODIUM 138 mmol/L (136-145)
[2020-10-14] MEDS ORDERED: NICODERM T (08:07)
[2020-10-14] MEDS ORDERED: DIPYRIDAMOLE25 MG PO (08:10)
[2020-10-14] MEDS ORDERED: POLY-IRON 150150 MG PO (08:10)
[2020-10-14] MEDS ORDERED: ZESTORETIC 20-1 EACH PO (08:10)
[2020-10-14] MEDS ORDERED: PREDNISONE5 MG PO (08:10)
[2020-10-14] MEDS ORDERED: GLUCOPHAGE500 MG PO (08:10)
[2020-10-14] MEDS ORDERED: LOPID600 M1 PO (08:10)
[2020-10-14 16:00] VITALS: BP 111/89
== END 2020-10-14 17:30 | disposition home health service (06) | DRG 189 ==
LOC: ED 10:18 → EDHOLD 15:39 → 4E 15:39
PROVIDERS: Emergency Medicine; Internal Medicine Critical Care Medicine; ADMIT Internal Medicine; ATTEND Internal Medicine
PROC: 5A0935A Assistance with Respiratory Ventilation, Less than 24 Consecutive Hours, High Flow/Velocity Cannula (ICD-10-PCS; principal; 2020-10-07)
PROC: 5A09357 Assistance with Respiratory Ventilation, Less than 24 Consecutive Hours, Continuous Positive Airway Pressure (ICD-10-PCS; 2020-10-07)
PROC: 5A0935A Assistance with Respiratory Ventilation, Less than 24 Consecutive Hours, High Flow/Velocity Cannula (ICD-10-PCS; 2020-10-08)
PROC: 5A09357 Assistance with Respiratory Ventilation, Less than 24 Consecutive Hours, Continuous Positive Airway Pressure (ICD-10-PCS; 2020-10-08)
PROC: 5A0935A Assistance with Respiratory Ventilation, Less than 24 Consecutive Hours, High Flow/Velocity Cannula (ICD-10-PCS; 2020-10-09)
PROC: 5A09357 Assistance with Respiratory Ventilation, Less than 24 Consecutive Hours, Continuous Positive Airway Pressure (ICD-10-PCS; 2020-10-09)
PROC: 5A09357 Assistance with Respiratory Ventilation, Less than 24 Consecutive Hours, Continuous Positive Airway Pressure (ICD-10-PCS; 2020-10-10)
PROC: 5A0935A Assistance with Respiratory Ventilation, Less than 24 Consecutive Hours, High Flow/Velocity Cannula (ICD-10-PCS; 2020-10-11)
PROC: 5A09357 Assistance with Respiratory Ventilation, Less than 24 Consecutive Hours, Continuous Positive Airway Pressure (ICD-10-PCS; 2020-10-11)
PROC: 5A09357 Assistance with Respiratory Ventilation, Less than 24 Consecutive Hours, Continuous Positive Airway Pressure (ICD-10-PCS; 2020-10-12)
PROC: 5A09357 Assistance with Respiratory Ventilation, Less than 24 Consecutive Hours, Continuous Positive Airway Pressure (ICD-10-PCS; 2020-10-13)
DX: J96.21 Acute and chronic respiratory failure with hypoxia (principal); J44.0 Chronic obstructive pulmonary disease with (acute) lower respiratory infection; J44.1 Chronic obstructive pulmonary disease with (acute) exacerbation; J20.9 Acute bronchitis, unspecified; D64.9 Anemia, unspecified; Z20.822 Contact with and (suspected) exposure to COVID-19; T38.0X5A Adverse effect of glucocorticoids and synthetic analogues, initial encounter; J96.22 Acute and chronic respiratory failure with hypercapnia; I50.9 Heart failure, unspecified; I11.0 Hypertensive heart disease with heart failure; R62.7 Adult failure to thrive; E11.649 Type 2 diabetes mellitus with hypoglycemia without coma; I95.9 Hypotension, unspecified; F17.210 Nicotine dependence, cigarettes, uncomplicated; D50.0 Iron deficiency anemia secondary to blood loss (chronic); Z88.5 Allergy status to narcotic agent; Z88.1 Allergy status to other antibiotic agents; Z88.8 Allergy status to other drugs, medicaments and biological substances; Z90.49 Acquired absence of other specified parts of digestive tract; Z90.710 Acquired absence of both cervix and uterus; Y92.89 Other specified places as the place of occurrence of the external cause; Z68.39 Body mass index [BMI] 39.0-39.9, adult

== ENCOUNTER → 2021-02-02 | Outpatient (CLI) | payer OTHER ==
[~2021-02-02] MED LIST changes: +NICODERM T; +POLY-IRON 150150 MG PO
[2021-02-02 07:44] LABS: BASO % 0.7 % (0.0-1.0); EOS % 0.9 % (1.0-4.0); HEMATOCRIT 43.8 % (37.0-47.0); LYMPH # 1.5 10*3/uL (1.3-4.4); LYMPH % 34.1 % (27.0-41.0); MEAN CELL VOLUME 92.4 fl (81.0-99.0); MEAN CORPUSCULAR HGB 28.9 pg (27.0-31.0); MEAN CORPUSCULAR HGB CONC 31.3 g/dl (33.0-37.0); MEAN PLATELET VOLUME 10.6 fl (9.6-12.3); MONO # 0.6 10*3/uL (0.1-1.0); MONO % 12.6 % (3.0-9.0); NEUT # 2.3 10*3/uL (2.3-7.9); PLATELET COUNT AUTOMATED 265 10*3/uL (130-400); RED BLOOD COUNT 4.74 10*6/uL (4.10-5.10); RED CELL DISTRI WIDTH 16.3 % (0-14.5); WHITE BLOOD COUNT 4.4 10*3/uL (4.8-10.8)
== END | disposition home or self-care (01) ==
LOC: LAB 06:49
PROVIDERS: ATTEND Internal Medicine
DX: D64.9 Anemia, unspecified (principal)

== ENCOUNTER 2021-02-22 09:04 | Inpatient (IN) | payer OTHER ==
[~2021-02-22] VITALS: Ht 167.6 cm; Wt 109.8 kg
[2021-02-22] VITALS (7 sets, daily range): BP systolic 99–119; BP diastolic 42–63
[2021-02-22 09:40] LABS: BASO # 0.1 10*3/uL (0.0-0.1); BASO % 0.4 % (0.0-1.0); EOS # 0.1 10*3/uL (0.0-0.4); EOS % 0.5 % (1.0-4.0); HEMATOCRIT 42.6 % (37.0-47.0); LYMPH # 1.3 10*3/uL (1.3-4.4); MEAN CELL VOLUME 92.4 fl (81.0-99.0); MEAN CORPUSCULAR HGB 29.3 pg (27.0-31.0); MEAN CORPUSCULAR HGB CONC 31.7 g/dl (33.0-37.0); MEAN PLATELET VOLUME 10.5 fl (9.6-12.3); MONO % 6.7 % (3.0-9.0); NEUT # 11.9 10*3/uL (2.3-7.9); NEUT % 83.1 % (47.0-73.0); PLATELET COUNT AUTOMATED 295 10*3/uL (130-400); RED BLOOD COUNT 4.61 10*6/uL (4.10-5.10); RED CELL DISTRI WIDTH 15.1 % (0-14.5); WHITE BLOOD COUNT 14.3 10*3/uL (4.8-10.8)
[2021-02-22 09:57] LABS: ALBUMIN 3.6 gm/dl (3.1-4.5); ALKALINE PHOSPHATASE 76 U/L (45-117); BUN 18 mg/dl (7-24); CHLORIDE 100 mmol/L (98-107); CREATININE 0.79 mg/dL (0.55-1.02); POTASSIUM 4.1 mmol/L (3.5-5.1); SGOT/AST 15 IU/L (3-35); SGPT/ALT 26 U/L (12-78); SODIUM 138 mmol/L (136-145); TOTAL PROTEIN 7.4 gm/dL (6.4-8.2)
[2021-02-22 10:01] LABS: TROPONIN I < 0.015 ng/ml (<0.045)
[2021-02-22 10:44] LABS: BILIRUBIN Negative (Negative); BLOOD Negative (Negative); CLARITY Clear (Clear); COLOR Yellow (Yellow); GLUCOSE Negative (Negative); KETONE Negative (Negative); LEUKO ESTERASE 1+ (Negative); NITRITE Negative (Negative); UROBILINOGEN 0.2 E.U./dl (0.0-1.0)
[2021-02-22 11:05] LABS: BACTERIA 1+; MUCOUS 1+
[2021-02-22] MEDS ORDERED: GEMFIBROZIL600 MG PO (15:53)
[2021-02-22] MEDS ORDERED: METFORMIN HYDR500 MG PO (15:54)
[2021-02-22] MEDS ORDERED: FUROSEMIDE40 MG PO (15:54)
[2021-02-22] MEDS ORDERED: POTASSIUM CHLO10 ME5 PO (15:55)
[2021-02-22] MEDS ORDERED: NEXIUM40 MG PO (15:55)
[2021-02-23] VITALS (9 sets, daily range): BP systolic 100–140; BP diastolic 50–89
[2021-02-23 06:28] LABS: HEMATOCRIT 40.8 % (37.0-47.0); MEAN CORPUSCULAR HGB 29.3 pg (27.0-31.0); MEAN CORPUSCULAR HGB CONC 31.1 g/dl (33.0-37.0); PLATELET COUNT AUTOMATED 265 10*3/uL (130-400); RED BLOOD COUNT 4.34 10*6/uL (4.10-5.10); RED CELL DISTRI WIDTH 15.2 % (0-14.5); WHITE BLOOD COUNT 25.5 10*3/uL (4.8-10.8)
[2021-02-23 06:40] LABS: ALBUMIN 3.2 gm/dl (3.1-4.5); BUN 21 mg/dl (7-24); CHLORIDE 101 mmol/L (98-107); POTASSIUM 3.9 mmol/L (3.5-5.1); SGPT/ALT 20 U/L (12-78); SODIUM 138 mmol/L (136-145)
[2021-02-23 06:43] LABS: ALKALINE PHOSPHATASE 65 U/L (45-117); CREATININE 0.88 mg/dL (0.55-1.02); SGOT/AST 11 IU/L (3-35); TOTAL PROTEIN 7.1 gm/dL (6.4-8.2)
[2021-02-23 07:24] LABS: PLATELET SUFFICIENCY NORMAL (NORMAL); TOTAL CELLS COUNTED 100 #CELLS
[2021-02-23 07:25] LABS: POLYCHROMASIA SLIGHT
[2021-02-23 07:45] LABS: ABG BASE EXCESS 3.1 mmol/L (-2.0-2.0); ARTERIAL BLOOD GAS PH 7.3 (7.35-7.45); ARTERIAL BLOOD GAS PO2 76.4 (80-90)
[2021-02-24] VITALS: BP 120/59; BP 133/66
[2021-02-24 08:00] VITALS: BP 102/53
[2021-02-24 12:00] VITALS: BP 112/50
[2021-02-24 16:00] VITALS: BP 119/56
[2021-02-24 20:00] VITALS: BP 104/51
[2021-02-25] VITALS: BP 113/60
[2021-02-25 06:47] LABS: BASO % 0.1 % (0.0-1.0); EOS % 0.1 % (1.0-4.0); HEMATOCRIT 35.1 % (37.0-47.0); LYMPH % 15.4 % (27.0-41.0); MEAN CELL VOLUME 93.9 fl (81.0-99.0); MEAN CORPUSCULAR HGB 29.4 pg (27.0-31.0); MEAN CORPUSCULAR HGB CONC 31.3 g/dl (33.0-37.0); MEAN PLATELET VOLUME 11.2 fl (9.6-12.3); MONO # 0.7 10*3/uL (0.1-1.0); MONO % 5.6 % (3.0-9.0); NEUT # 10.2 10*3/uL (2.3-7.9); NEUT % 78.1 % (47.0-73.0); PLATELET COUNT AUTOMATED 270 10*3/uL (130-400); RED BLOOD COUNT 3.74 10*6/uL (4.10-5.10); RED CELL DISTRI WIDTH 14.9 % (0-14.5)
[2021-02-25 06:57] LABS: BUN 28 mg/dl (7-24); CHLORIDE 106 mmol/L (98-107); SODIUM 140 mmol/L (136-145)
[2021-02-25 08:00] VITALS: BP 116/69
[2021-02-25 12:00] VITALS: BP 104/51
[2021-02-25 16:00] VITALS: BP 110/40
[2021-02-25 20:00] VITALS: BP 107/57
[2021-02-26] VITALS: BP 116/58
[2021-02-26 08:00] VITALS: BP 124/61
[2021-02-26 12:00] VITALS: BP 114/48
[2021-02-26 16:00] VITALS: BP 121/78
[2021-02-26 20:00] VITALS: BP 119/52
[2021-02-27] VITALS: BP 122/43
[2021-02-27 07:31] LABS: BASO % 0.3 % (0.0-1.0); EOS % 0.2 % (1.0-4.0); HEMATOCRIT 35.7 % (37.0-47.0); LYMPH # 2.4 10*3/uL (1.3-4.4); LYMPH % 21.7 % (27.0-41.0); MEAN CELL VOLUME 93.7 fl (81.0-99.0); MEAN CORPUSCULAR HGB 29.7 pg (27.0-31.0); MEAN CORPUSCULAR HGB CONC 31.7 g/dl (33.0-37.0); MEAN PLATELET VOLUME 10.9 fl (9.6-12.3); MONO # 0.8 10*3/uL (0.1-1.0); MONO % 6.7 % (3.0-9.0); NEUT # 7.7 10*3/uL (2.3-7.9); NEUT % 69.5 % (47.0-73.0); PLATELET COUNT AUTOMATED 284 10*3/uL (130-400); RED BLOOD COUNT 3.81 10*6/uL (4.10-5.10); RED CELL DISTRI WIDTH 14.7 % (0-14.5); WHITE BLOOD COUNT 11.1 10*3/uL (4.8-10.8)
[2021-02-27 07:33] LABS: BUN 27 mg/dl (7-24); CHLORIDE 107 mmol/L (98-107); CREATININE 0.65 mg/dL (0.55-1.02); SODIUM 140 mmol/L (136-145)
[2021-02-27] MEDS ORDERED: LISINOPRIL20 MG PO (07:49)
[2021-02-27] MEDS ORDERED: CLEOCIN HCL300 MG PO (07:49)
[2021-02-27 08:00] VITALS: BP 133/61
[2021-02-27 11:01] VITALS: BP 115/53
== END 2021-02-27 16:13 | disposition home health service (06) | DRG 579 ==
LOC: ED 09:04 → 5E 13:03 → EDHOLD 13:03 → 5E 13:28
PROVIDERS: Emergency Medicine; ADMIT Internal Medicine; ATTEND Internal Medicine
PROC: 0J9C0ZZ Drainage of Pelvic Region Subcutaneous Tissue and Fascia, Open Approach (ICD-10-PCS; principal; 2021-02-23)
DX: L02.214 Cutaneous abscess of groin (principal); J80 Acute respiratory distress syndrome; L03.314 Cellulitis of groin; F17.210 Nicotine dependence, cigarettes, uncomplicated; I50.9 Heart failure, unspecified; B95.62 Methicillin resistant Staphylococcus aureus infection as the cause of diseases classified elsewhere; I11.0 Hypertensive heart disease with heart failure; J44.9 Chronic obstructive pulmonary disease, unspecified; E11.9 Type 2 diabetes mellitus without complications; Z88.6 Allergy status to analgesic agent; Z88.1 Allergy status to other antibiotic agents; Z88.8 Allergy status to other drugs, medicaments and biological substances; Z83.3 Family history of diabetes mellitus; Z82.49 Family history of ischemic heart disease and other diseases of the circulatory system; Z90.710 Acquired absence of both cervix and uterus; Z90.49 Acquired absence of other specified parts of digestive tract; Z71.6 Tobacco abuse counseling

== ENCOUNTER → 2021-03-03 | Outpatient (CLI) | payer OTHER ==
[~2021-03-03] MED LIST changes: +CLEOCIN HCL300 MG PO; +FUROSEMIDE40 MG PO; +GEMFIBROZIL600 MG PO; +METFORMIN HYDR500 MG PO; +NEXIUM40 MG PO; +POTASSIUM CHLO10 ME5 PO
== END ==
LOC: WOUNDCARE 02:44
PROVIDERS: ATTEND Surgery
DX: L02.211 Cutaneous abscess of abdominal wall (principal); L03.311 Cellulitis of abdominal wall; E11.9 Type 2 diabetes mellitus without complications; J44.9 Chronic obstructive pulmonary disease, unspecified; F17.290 Nicotine dependence, other tobacco product, uncomplicated; Z86.73 Personal history of transient ischemic attack (TIA), and cerebral infarction without residual deficits

== ENCOUNTER → 2021-03-10 | Outpatient (CLI) | payer OTHER | LOC: WOUNDCARE 01:44 | PROVIDERS: ATTEND Surgery | DX: L02.211 Cutaneous abscess of abdominal wall (principal); L03.311 Cellulitis of abdominal wall; E11.9 Type 2 diabetes mellitus without complications; J44.9 Chronic obstructive pulmonary disease, unspecified; F17.290 Nicotine dependence, other tobacco product, uncomplicated; Z86.73 Personal history of transient ischemic attack (TIA), and cerebral infarction without residual deficits ==

== ENCOUNTER → 2021-03-17 | Outpatient (CLI) | payer OTHER | LOC: WOUNDCARE 01:32 | PROVIDERS: ATTEND Surgery | DX: L02.211 Cutaneous abscess of abdominal wall (principal); L03.311 Cellulitis of abdominal wall; E11.9 Type 2 diabetes mellitus without complications; J44.9 Chronic obstructive pulmonary disease, unspecified; F17.290 Nicotine dependence, other tobacco product, uncomplicated; Z86.73 Personal history of transient ischemic attack (TIA), and cerebral infarction without residual deficits ==

== ENCOUNTER 2021-05-09 13:18 | Emergency (ER) | payer OTHER ==
[2021-05-09 18:00] LABS: BILIRUBIN Negative (Negative); BLOOD Negative (Negative); CLARITY Clear (Clear); COLOR Yellow (Yellow); GLUCOSE Negative (Negative); KETONE Negative (Negative); LEUKO ESTERASE Negative (Negative); NITRITE Positive (Negative); PH 7.5 (4.5-8.0)
[2021-05-09] MEDS ORDERED: PREDNISONE50 MG PO (18:12)
[2021-05-09] MEDS ORDERED: ORPHENADRINE C100 M1 PO (18:12)
[2021-05-09 18:15] LABS: BACTERIA 2+; RBC 0-2 rbc/hpf (0-2)
== END 2021-05-09 18:33 | disposition home or self-care (01) ==
LOC: ED 13:18
PROVIDERS: Student in an Organized Health Care Education/Training Program
DX: M54.30 Sciatica, unspecified side (principal); Z88.1 Allergy status to other antibiotic agents; Z88.8 Allergy status to other drugs, medicaments and biological substances; Z79.899 Other long term (current) drug therapy

== ENCOUNTER → 2021-06-19 | Outpatient (CLI) | payer OTHER ==
[~2021-06-19] MED LIST changes: +ORPHENADRINE C100 M1 PO; +PREDNISONE50 MG PO
== END | disposition home or self-care (01) ==
LOC: RAD 12:45
PROVIDERS: ATTEND Internal Medicine
DX: Z13.820 Encounter for screening for osteoporosis (principal); M81.0 Age-related osteoporosis without current pathological fracture; Z78.0 Asymptomatic menopausal state

== ENCOUNTER → 2021-09-25 | Outpatient (CLI) | payer OTHER ==
[~2021-09-25] MED LIST changes: +CYCLOBENZAPRINE10 MG PO; +METOCLOPRAMIDE H5 M2 PO; +TYLENOL325 M1 PO
== END | disposition home or self-care (01) ==
LOC: CT 09:24
PROVIDERS: ATTEND Internal Medicine
DX: K57.30 Diverticulosis of large intestine without perforation or abscess without bleeding (principal); N20.0 Calculus of kidney; D35.02 Benign neoplasm of left adrenal gland; D35.01 Benign neoplasm of right adrenal gland; J98.4 Other disorders of lung; R59.0 Localized enlarged lymph nodes; N28.1 Cyst of kidney, acquired

== ENCOUNTER 2021-09-27 09:16 | Emergency (ER) | payer OTHER ==
[~2021-09-27] VITALS: Ht 167.6 cm; Wt 111.1 kg
[~2021-09-27 09:16] MED LIST changes: -CYCLOBENZAPRINE10 MG PO; -METOCLOPRAMIDE H5 M2 PO; -TYLENOL325 M1 PO
[2021-09-27] MEDS ORDERED: METOCLOPRAMIDE H5 M2 PO (09:27)
[2021-09-27] MEDS ORDERED: TYLENOL325 M1 PO (10:50)
[2021-09-27] MEDS ORDERED: CYCLOBENZAPRINE10 MG PO (10:50)
== END 2021-09-27 11:01 | disposition home or self-care (01) ==
LOC: ED 09:16
DX: M25.511 Pain in right shoulder (principal); M54.6 Pain in thoracic spine; I10 Essential (primary) hypertension; E10.9 Type 1 diabetes mellitus without complications; J44.9 Chronic obstructive pulmonary disease, unspecified; E11.9 Type 2 diabetes mellitus without complications; I50.9 Heart failure, unspecified; Z88.1 Allergy status to other antibiotic agents; Z88.8 Allergy status to other drugs, medicaments and biological substances; Z79.899 Other long term (current) drug therapy; Z79.82 Long term (current) use of aspirin; Z98.51 Tubal ligation status; Z90.49 Acquired absence of other specified parts of digestive tract; Z90.89 Acquired absence of other organs; Z90.710 Acquired absence of both cervix and uterus; Z98.890 Other specified postprocedural states

== ENCOUNTER 2021-12-03 12:37 | Inpatient (IN) | payer OTHER ==
[~2021-12-03] VITALS: Ht 167.6 cm; Wt 114.8 kg
[~2021-12-03 12:37] MED LIST changes: +CYCLOBENZAPRINE10 MG PO; +METOCLOPRAMIDE H5 M2 PO; +TYLENOL325 M1 PO
[2021-12-03 12:50] VITALS: BP 123/51
[2021-12-03] MEDS ORDERED: CALCIUM CARBON600 M4 PO (13:15)
[2021-12-03 13:16] LABS: BASO % 0.4 % (0.0-1.0); EOS % 0.4 % (1.0-4.0); HEMATOCRIT 38.7 % (37.0-47.0); LYMPH # 1.4 10*3/uL (1.3-4.4); LYMPH % 13.1 % (27.0-41.0); MEAN CELL VOLUME 92.1 fl (81.0-99.0); MEAN CORPUSCULAR HGB CONC 31.5 g/dl (33.0-37.0); MEAN PLATELET VOLUME 10.1 fl (9.6-12.3); MONO # 0.5 10*3/uL (0.1-1.0); MONO % 4.5 % (3.0-9.0); NEUT # 8.6 10*3/uL (2.3-7.9); NEUT % 80.9 % (47.0-73.0); PLATELET COUNT AUTOMATED 307 10*3/uL (130-400); RED CELL DISTRI WIDTH 16.1 % (0-14.5); WHITE BLOOD COUNT 10.7 10*3/uL (4.8-10.8)
[2021-12-03 13:27] LABS: ACT PARTIAL THROMBO TIME 27.2 SECONDS (20.0-32.1); INTERNATIONAL NORM RATIO 0.9 (2.0-3.5)
[2021-12-03] MEDS ORDERED: PREDNISONE5 MG PO (13:28)
[2021-12-03] MEDS ORDERED: LOW DOSE ASPIRI81 M1 PO ×2 (13:34→13:35)
[2021-12-03 13:42] LABS: ALKALINE PHOSPHATASE 71 U/L (45-117); BUN 14 mg/dl (7-24); CHLORIDE 100 mmol/L (98-107); CREATININE 0.74 mg/dL (0.55-1.02); LIPASE 136 U/L (73-393); POTASSIUM 3.8 mmol/L (3.5-5.1); SGOT/AST 17 IU/L (3-35); SGPT/ALT 27 U/L (12-78); SODIUM 138 mmol/L (136-145); TOTAL PROTEIN 7.1 gm/dL (6.4-8.2)
[2021-12-03 16:00] VITALS: BP 124/50
[2021-12-03 16:16] VITALS: BP 128/62
[2021-12-03 16:30] VITALS: BP 137/53
[2021-12-03 20:00] VITALS: BP 114/50
[2021-12-04] VITALS: BP 115/56
[2021-12-04 06:00] LABS: BASO # 0.1 10*3/uL (0.0-0.1); BASO % 0.5 % (0.0-1.0); EOS # 0.1 10*3/uL (0.0-0.4); EOS % 1.1 % (1.0-4.0); HEMATOCRIT 39.6 % (37.0-47.0); LYMPH # 1.7 10*3/uL (1.3-4.4); LYMPH % 17.4 % (27.0-41.0); MEAN CELL VOLUME 93.4 fl (81.0-99.0); MEAN CORPUSCULAR HGB 28.5 pg (27.0-31.0); MEAN CORPUSCULAR HGB CONC 30.6 g/dl (33.0-37.0); MEAN PLATELET VOLUME 10.3 fl (9.6-12.3); MONO # 0.6 10*3/uL (0.1-1.0); MONO % 6.2 % (3.0-9.0); NEUT # 7.3 10*3/uL (2.3-7.9); NEUT % 74.3 % (47.0-73.0); PLATELET COUNT AUTOMATED 297 10*3/uL (130-400); RED BLOOD COUNT 4.24 10*6/uL (4.10-5.10); RED CELL DISTRI WIDTH 16.1 % (0-14.5); WHITE BLOOD COUNT 9.9 10*3/uL (4.8-10.8)
[2021-12-04 06:06] LABS: BUN 12 mg/dl (7-24); CHLORIDE 98 mmol/L (98-107); CREATININE 0.71 mg/dL (0.55-1.02); POTASSIUM 4.1 mmol/L (3.5-5.1); SODIUM 138 mmol/L (136-145)
[2021-12-04 08:00] VITALS: BP 122/52
[2021-12-04 12:00] VITALS: BP 127/56
[2021-12-04 16:00] VITALS: BP 100/68
[2021-12-04 20:00] VITALS: BP 123/52
[2021-12-05] VITALS: BP 110/69
[2021-12-05 08:00] VITALS: BP 125/49
[2021-12-05 12:00] VITALS: BP 104/50
[2021-12-05 16:00] VITALS: BP 110/49
[2021-12-05 20:36] VITALS: BP 122/48
[2021-12-06 00:49] VITALS: BP 130/60
[2021-12-06 06:42] LABS: BUN 16 mg/dl (7-24); CHLORIDE 99 mmol/L (98-107); CREATININE 0.64 mg/dL (0.55-1.02); POTASSIUM 4.2 mmol/L (3.5-5.1); SODIUM 139 mmol/L (136-145)
[2021-12-06 08:00] VITALS: BP 109/53
[2021-12-06 12:00] VITALS: BP 98/62
== END 2021-12-06 14:42 | disposition home or self-care (01) | DRG 291 ==
LOC: ED 12:37 → 5E 14:28 → EDHOLD 14:28 → 5E 15:24
PROVIDERS: Emergency Medicine; Internal Medicine; ADMIT Internal Medicine; ATTEND Internal Medicine
DX: I11.0 Hypertensive heart disease with heart failure (principal); I50.33 Acute on chronic diastolic (congestive) heart failure; J96.10 Chronic respiratory failure, unspecified whether with hypoxia or hypercapnia; Z68.41 Body mass index [BMI] 40.0-44.9, adult; E66.01 Morbid (severe) obesity due to excess calories; E11.9 Type 2 diabetes mellitus without complications; I25.10 Atherosclerotic heart disease of native coronary artery without angina pectoris; J43.2 Centrilobular emphysema; F17.210 Nicotine dependence, cigarettes, uncomplicated; Z88.1 Allergy status to other antibiotic agents; Z88.8 Allergy status to other drugs, medicaments and biological substances; Z90.710 Acquired absence of both cervix and uterus; Z90.49 Acquired absence of other specified parts of digestive tract

== ENCOUNTER 2022-02-03 09:19 | Inpatient (IN) | payer OTHER ==
[~2022-02-03] VITALS: Ht 167.6 cm; Wt 117.0 kg
[~2022-02-03 09:19] MED LIST changes: +CALCIUM CARBON600 M4 PO; +LOW DOSE ASPIRI81 M1 PO
[2022-02-03 09:27] VITALS: BP 115/48
[2022-02-03 09:50] LABS: BASO # 0.1 10*3/uL (0.0-0.1); BASO % 0.5 % (0.0-1.0); EOS # 0.1 10*3/uL (0.0-0.4); EOS % 0.8 % (1.0-4.0); HEMATOCRIT 40.4 % (37.0-47.0); LYMPH # 1.5 10*3/uL (1.3-4.4); MEAN CELL VOLUME 92.9 fl (81.0-99.0); MEAN CORPUSCULAR HGB 28.5 pg (27.0-31.0); MEAN CORPUSCULAR HGB CONC 30.7 g/dl (33.0-37.0); MEAN PLATELET VOLUME 10.2 fl (9.6-12.3); MONO # 0.6 10*3/uL (0.1-1.0); NEUT # 7.8 10*3/uL (2.3-7.9); NEUT % 77.3 % (47.0-73.0); PLATELET COUNT AUTOMATED 348 10*3/uL (130-400); RED BLOOD COUNT 4.35 10*6/uL (4.10-5.10); RED CELL DISTRI WIDTH 15.2 % (0-14.5)
[2022-02-03 10:00] LABS: ACT PARTIAL THROMBO TIME 28.2 SECONDS (20.0-32.1); INTERNATIONAL NORM RATIO 0.9 (2.0-3.5)
[2022-02-03 10:09] LABS: ALKALINE PHOSPHATASE 96 U/L (45-117); BUN 10 mg/dl (7-24); CHLORIDE 98 mmol/L (98-107); CREATININE 0.64 mg/dL (0.55-1.02); LIPASE 277 U/L (73-393); POTASSIUM 4.1 mmol/L (3.5-5.1); SGOT/AST 22 IU/L (3-35); SGPT/ALT 23 U/L (12-78); SODIUM 139 mmol/L (136-145); TOTAL PROTEIN 7.6 gm/dL (6.4-8.2)
[2022-02-03 10:33] VITALS: BP 122/62
[2022-02-03 11:22] VITALS: BP 115/70
[2022-02-03 15:30] VITALS: BP 115/57
[2022-02-03] MEDS ORDERED: BUMETANIDE2 MG PO (16:32)
[2022-02-03] MEDS ORDERED: ZESTRIL20 MG PO (16:34)
[2022-02-03 20:00] VITALS: BP 92/42
[2022-02-04] VITALS: BP 111/47; BP 98/44
[2022-02-04 05:30] VITALS: BP 102/52
[2022-02-04 08:00] VITALS: BP 127/49
[2022-02-04 12:00] VITALS: BP 109/47
[2022-02-04 13:11] LABS: ABG BASE EXCESS 5.7 mmol/L (-2.0-2.0); ARTERIAL BLOOD GAS PH 7.319 (7.35-7.45); ARTERIAL BLOOD GAS PO2 75.7 (80-90)
[2022-02-04 16:00] VITALS: BP 109/47
[2022-02-04] MEDS ORDERED: NEXIUM40 M1 PO (17:27)
[2022-02-04 20:00] VITALS: BP 103/46
[2022-02-05] VITALS: BP 118/61
[2022-02-05 08:00] VITALS: BP 117/53
[2022-02-05 12:00] VITALS: BP 113/55
[2022-02-05 16:00] VITALS: BP 106/50
[2022-02-05 20:00] VITALS: BP 112/56
[2022-02-06] VITALS: BP 104/57
[2022-02-06 08:00] VITALS: BP 113/50
[2022-02-06 12:00] VITALS: BP 119/50
[2022-02-06 16:00] VITALS: BP 111/54
[2022-02-06 20:00] VITALS: BP 104/45
[2022-02-07] VITALS: BP 106/52
[2022-02-07] MEDS ORDERED: PREDNISONE5 MG PO (04:21)
[2022-02-07] MEDS ORDERED: AUGMENTIN 875-875 MG PO (04:21)
[2022-02-07 06:00] LABS: BUN 24 mg/dl (7-24); CHLORIDE 100 mmol/L (98-107); CREATININE 0.62 mg/dL (0.55-1.02); POTASSIUM 4.2 mmol/L (3.5-5.1); SODIUM 141 mmol/L (136-145)
[2022-02-07 06:22] LABS: BASO % 0.4 % (0.0-1.0); EOS % 0.2 % (1.0-4.0); LYMPH # 1.7 10*3/uL (1.3-4.4); LYMPH % 17.7 % (27.0-41.0); MEAN CORPUSCULAR HGB 28.4 pg (27.0-31.0); MEAN CORPUSCULAR HGB CONC 30.6 g/dl (33.0-37.0); MEAN PLATELET VOLUME 10.7 fl (9.6-12.3); MONO # 0.7 10*3/uL (0.1-1.0); NEUT # 7.1 10*3/uL (2.3-7.9); NEUT % 74.1 % (47.0-73.0); PLATELET COUNT AUTOMATED 339 10*3/uL (130-400); RED BLOOD COUNT 3.87 10*6/uL (4.10-5.10); RED CELL DISTRI WIDTH 15.1 % (0-14.5); WHITE BLOOD COUNT 9.6 10*3/uL (4.8-10.8)
[2022-02-07 08:00] VITALS: BP 128/61
== END 2022-02-07 09:08 | disposition home or self-care (01) | DRG 193 ==
LOC: ED 09:19 → EDHOLD 14:34 → 5E 14:34
PROVIDERS: Emergency Medicine; Internal Medicine; Internal Medicine Critical Care Medicine; ADMIT Internal Medicine; ATTEND Internal Medicine
PROC: 5A09357 Assistance with Respiratory Ventilation, Less than 24 Consecutive Hours, Continuous Positive Airway Pressure (ICD-10-PCS; principal; 2022-02-05)
PROC: 5A09357 Assistance with Respiratory Ventilation, Less than 24 Consecutive Hours, Continuous Positive Airway Pressure (ICD-10-PCS; 2022-02-06)
DX: J18.9 Pneumonia, unspecified organism (principal); J96.21 Acute and chronic respiratory failure with hypoxia; J96.22 Acute and chronic respiratory failure with hypercapnia; G93.41 Metabolic encephalopathy; J44.1 Chronic obstructive pulmonary disease with (acute) exacerbation; I50.32 Chronic diastolic (congestive) heart failure; J98.11 Atelectasis; E87.3 Alkalosis; Z68.41 Body mass index [BMI] 40.0-44.9, adult; J44.0 Chronic obstructive pulmonary disease with (acute) lower respiratory infection; E66.01 Morbid (severe) obesity due to excess calories; I25.10 Atherosclerotic heart disease of native coronary artery without angina pectoris; I11.0 Hypertensive heart disease with heart failure; K21.9 Gastro-esophageal reflux disease without esophagitis; E11.9 Type 2 diabetes mellitus without complications; R62.7 Adult failure to thrive; Z88.8 Allergy status to other drugs, medicaments and biological substances; Z90.49 Acquired absence of other specified parts of digestive tract; Z90.710 Acquired absence of both cervix and uterus

== ENCOUNTER → 2022-03-19 | Outpatient (CLI) | payer OTHER ==
[~2022-03-19] MED LIST changes: +BUMETANIDE2 MG PO; +NEXIUM40 M1 PO
[2022-03-19 08:47] LABS: BASO % 0.3 % (0.0-1.0); EOS # 0.1 10*3/uL (0.0-0.4); EOS % 0.9 % (1.0-4.0); HEMATOCRIT 38.9 % (37.0-47.0); LYMPH # 1.7 10*3/uL (1.3-4.4); LYMPH % 18.6 % (27.0-41.0); MEAN CELL VOLUME 91.5 fl (81.0-99.0); MEAN CORPUSCULAR HGB 27.8 pg (27.0-31.0); MEAN CORPUSCULAR HGB CONC 30.3 g/dl (33.0-37.0); MEAN PLATELET VOLUME 10.3 fl (9.6-12.3); MONO # 0.7 10*3/uL (0.1-1.0); MONO % 7.5 % (3.0-9.0); NEUT # 6.4 10*3/uL (2.3-7.9); PLATELET COUNT AUTOMATED 328 10*3/uL (130-400); RED BLOOD COUNT 4.25 10*6/uL (4.10-5.10); RED CELL DISTRI WIDTH 15.4 % (0-14.5); WHITE BLOOD COUNT 8.9 10*3/uL (4.8-10.8)
[2022-03-19 09:02] LABS: ALKALINE PHOSPHATASE 87 U/L (45-117); BUN 9 mg/dl (7-24); CHLORIDE 100 mmol/L (98-107); CHOLESTEROL 171 mg/dL (<200); CREATININE 0.65 mg/dL (0.55-1.02); POTASSIUM 4.3 mmol/L (3.5-5.1); SGOT/AST 36 IU/L (3-35); SGPT/ALT 37 U/L (12-78); SODIUM 139 mmol/L (136-145); T3 UPTAKE 31 % (31-39); TOTAL PROTEIN 7.3 gm/dL (6.4-8.2); TRIGLYCERIDES 235 mg/dl (<150)
[2022-03-19 09:08] LABS: FREE T4 1.13 ng/dl (0.76-1.46); LDL CHOLESTEROL 88 mg/dL (9-159); THYROID STIM HORMONE (HS) 0.708 uIU/ml (0.358-4.75)
[2022-03-19 10:34] LABS: VITAMIN D, 25-HYDROXY 9.9 ng/mL (30-100)
== END ==
LOC: LAB 08:17
PROVIDERS: ATTEND Internal Medicine
DX: Z13.0 Encounter for screening for diseases of the blood and blood-forming organs and certain disorders involving the immune mechanism (principal); Z13.89 Encounter for screening for other disorder; I10 Essential (primary) hypertension; E11.9 Type 2 diabetes mellitus without complications; D50.8 Other iron deficiency anemias; E55.9 Vitamin D deficiency, unspecified

== ENCOUNTER 2022-04-13 05:11 | Inpatient (IN) | payer OTHER ==
[2022-04-13 05:16] VITALS: BP 97/52
[2022-04-13 06:04] LABS: BASO # 0.1 10*3/uL (0.0-0.1); BASO % 0.6 % (0.0-1.0); EOS # 0.1 10*3/uL (0.0-0.4); EOS % 0.6 % (1.0-4.0); HEMATOCRIT 37.3 % (37.0-47.0); LYMPH # 1.5 10*3/uL (1.3-4.4); LYMPH % 18.6 % (27.0-41.0); MEAN CELL VOLUME 91.6 fl (81.0-99.0); MEAN CORPUSCULAR HGB CONC 29.5 g/dl (33.0-37.0); MEAN PLATELET VOLUME 10.4 fl (9.6-12.3); MONO # 0.6 10*3/uL (0.1-1.0); MONO % 6.8 % (3.0-9.0); PLATELET COUNT AUTOMATED 333 10*3/uL (130-400); RED BLOOD COUNT 4.07 10*6/uL (4.10-5.10); RED CELL DISTRI WIDTH 15.4 % (0-14.5); WHITE BLOOD COUNT 8.2 10*3/uL (4.8-10.8)
[2022-04-13 06:05] LABS: ALKALINE PHOSPHATASE 86 U/L (45-117); BUN 10 mg/dl (7-24); CHLORIDE 102 mmol/L (98-107); CREATININE 0.56 mg/dL (0.55-1.02); POTASSIUM 4.5 mmol/L (3.5-5.1); SGOT/AST 11 IU/L (3-35); SGPT/ALT 20 U/L (12-78); SODIUM 140 mmol/L (136-145); TOTAL PROTEIN 6.9 gm/dL (6.4-8.2)
[2022-04-13 06:11] LABS: ABG BASE EXCESS 6.6 mmol/L (-2.0-2.0); ARTERIAL BLOOD GAS PH 7.337 (7.35-7.45)
[2022-04-13 15:03] VITALS: BP 96/57
== END 2022-04-13 17:13 | disposition left against medical advice (07) | DRG 193 ==
LOC: ED 05:11 → EDHOLD 06:36
PROVIDERS: Emergency Medicine; ADMIT Internal Medicine; ATTEND Internal Medicine
DX: J18.9 Pneumonia, unspecified organism (principal); J96.01 Acute respiratory failure with hypoxia; J96.02 Acute respiratory failure with hypercapnia; J44.1 Chronic obstructive pulmonary disease with (acute) exacerbation; J44.0 Chronic obstructive pulmonary disease with (acute) lower respiratory infection; I10 Essential (primary) hypertension; Z20.822 Contact with and (suspected) exposure to COVID-19; E11.9 Type 2 diabetes mellitus without complications; Z88.1 Allergy status to other antibiotic agents; Z88.8 Allergy status to other drugs, medicaments and biological substances; Z83.3 Family history of diabetes mellitus; Z82.49 Family history of ischemic heart disease and other diseases of the circulatory system; Z86.73 Personal history of transient ischemic attack (TIA), and cerebral infarction without residual deficits

== ENCOUNTER → 2022-08-19 | Outpatient (CLI) | payer OTHER ==
[2022-08-19 09:22] LABS: BUN 11 mg/dl (9-23); CHLORIDE 99 mmol/L (98-107); POTASSIUM 3.9 mmol/L (3.4-5.1)
== END | disposition home or self-care (01) ==
LOC: LAB 08:36
PROVIDERS: ATTEND Internal Medicine
DX: I10 Essential (primary) hypertension (principal); E11.9 Type 2 diabetes mellitus without complications

== ENCOUNTER 2022-09-21 13:06 | Inpatient (IN) | payer OTHER ==
[~2022-09-21] VITALS: Ht 167.6 cm; Wt 106.7 kg
[2022-09-21 14:18] VITALS: BP 107/56
[2022-09-21 14:51] LABS: BASO % 0.3 % (0.0-1.0); EOS # 0.1 10*3/uL (0.0-0.4); EOS % 0.4 % (1.0-4.0); HEMATOCRIT 39.3 % (37.0-47.0); LYMPH # 1.7 10*3/uL (1.3-4.4); LYMPH % 11.7 % (27.0-41.0); MEAN CELL VOLUME 91.8 fl (81.0-99.0); MEAN CORPUSCULAR HGB CONC 30.5 g/dl (33.0-37.0); MEAN PLATELET VOLUME 10.3 fl (9.6-12.3); MONO # 0.7 10*3/uL (0.1-1.0); NEUT # 12.1 10*3/uL (2.3-7.9); NEUT % 82.3 % (47.0-73.0); PLATELET COUNT AUTOMATED 352 10*3/uL (130-400); RED BLOOD COUNT 4.28 10*6/uL (4.10-5.10); RED CELL DISTRI WIDTH 16.9 % (0-14.5); WHITE BLOOD COUNT 14.7 10*3/uL (4.8-10.8)
[2022-09-21 15:07] LABS: ALKALINE PHOSPHATASE 88 U/L (46-116); BUN 8 mg/dl (9-23); CHLORIDE 98 mmol/L (98-107); POTASSIUM 3.6 mmol/L (3.4-5.1); SGPT/ALT 13 U/L (10-49); TOTAL PROTEIN 7.2 gm/dL (6.0-8.0)
[2022-09-21] MEDS ORDERED: LASIX80 MG PO (18:39)
[2022-09-21 20:00] VITALS: BP 126/71
[2022-09-22] VITALS: BP 133/70
[2022-09-22 07:54] VITALS: BP 124/66
[2022-09-22 11:54] VITALS: BP 110/58
[2022-09-22 16:00] VITALS: BP 118/53
[2022-09-22 20:00] VITALS: BP 111/40
[2022-09-23] VITALS: BP 114/56
[2022-09-23 07:28] VITALS: BP 110/58
[2022-09-23 08:03] LABS: BASO % 0.4 % (0.0-1.0); EOS % 0.1 % (1.0-4.0); HEMATOCRIT 35.3 % (37.0-47.0); LYMPH # 1.4 10*3/uL (1.3-4.4); MEAN CELL VOLUME 94.4 fl (81.0-99.0); MEAN CORPUSCULAR HGB 28.1 pg (27.0-31.0); MEAN CORPUSCULAR HGB CONC 29.7 g/dl (33.0-37.0); MEAN PLATELET VOLUME 10.4 fl (9.6-12.3); MONO # 0.4 10*3/uL (0.1-1.0); MONO % 3.7 % (3.0-9.0); NEUT # 8.8 10*3/uL (2.3-7.9); NEUT % 81.8 % (47.0-73.0); PLATELET COUNT AUTOMATED 320 10*3/uL (130-400); RED BLOOD COUNT 3.74 10*6/uL (4.10-5.10); RED CELL DISTRI WIDTH 16.7 % (0-14.5); WHITE BLOOD COUNT 10.7 10*3/uL (4.8-10.8)
[2022-09-23 08:17] LABS: BUN 14 mg/dl (9-23); CHLORIDE 100 mmol/L (98-107)
[2022-09-23 08:27] LABS: POTASSIUM 5.4 mmol/L (3.4-5.1)
[2022-09-23 11:44] VITALS: BP 108/52
[2022-09-23 16:00] VITALS: BP 121/53
[2022-09-23 20:00] VITALS: BP 114/43
[2022-09-24] VITALS: BP 128/63
[2022-09-24] MEDS ORDERED: AMOXICILLIN875 MG PO (07:43)
[2022-09-24] MEDS ORDERED: PREDNISONE5 MG PO (07:43)
[2022-09-24 08:00] VITALS: BP 130/68
== END 2022-09-24 10:43 | disposition home or self-care (01) | DRG 153 ==
LOC: ED 13:06 → 5E 16:23 → EDHOLD 16:23 → 5E 18:06
PROVIDERS: Emergency Medicine; ADMIT Internal Medicine; ATTEND Internal Medicine
DX: H66.003 Acute suppurative otitis media without spontaneous rupture of ear drum, bilateral (principal); J44.1 Chronic obstructive pulmonary disease with (acute) exacerbation; I50.32 Chronic diastolic (congestive) heart failure; J96.10 Chronic respiratory failure, unspecified whether with hypoxia or hypercapnia; H70.893 Other mastoiditis and related conditions, bilateral; E11.9 Type 2 diabetes mellitus without complications; E66.01 Morbid (severe) obesity due to excess calories; K21.9 Gastro-esophageal reflux disease without esophagitis; J20.9 Acute bronchitis, unspecified; E87.6 Hypokalemia; I11.0 Hypertensive heart disease with heart failure; Z88.6 Allergy status to analgesic agent; Z88.1 Allergy status to other antibiotic agents; Z88.8 Allergy status to other drugs, medicaments and biological substances; Z90.710 Acquired absence of both cervix and uterus; Z90.49 Acquired absence of other specified parts of digestive tract; Z83.3 Family history of diabetes mellitus; Z82.49 Family history of ischemic heart disease and other diseases of the circulatory system; Z71.6 Tobacco abuse counseling; Z68.37 Body mass index [BMI] 37.0-37.9, adult

== ENCOUNTER → 2022-11-01 | Outpatient (CLI) | payer OTHER ==
[~2022-11-01] MED LIST changes: +AMOXICILLIN875 MG PO; +LASIX80 MG PO
== END | disposition home or self-care (01) ==
LOC: RAD 08:45
PROVIDERS: ATTEND Internal Medicine
DX: M25.511 Pain in right shoulder (principal)

== ENCOUNTER 2022-11-29 13:25 | Emergency (ER) | payer OTHER ==
[~2022-11-29] VITALS: Ht 167.6 cm; Wt 108.9 kg
[2022-11-29] MEDS ORDERED: ESOMEPRAZOLE MA40 M1 PO (14:07)
[2022-11-29] MEDS ORDERED: MELOXICAM7.5 MG PO (14:08)
[2022-11-29 14:11] LABS: BASO % 0.4 % (0.0-1.0); EOS # 0.1 10*3/uL (0.0-0.4); EOS % 0.6 % (1.0-4.0); HEMATOCRIT 40.3 % (37.0-47.0); LYMPH # 1.6 10*3/uL (1.3-4.4); LYMPH % 14.6 % (27.0-41.0); MEAN CELL VOLUME 91.8 fl (81.0-99.0); MEAN CORPUSCULAR HGB CONC 30.5 g/dl (33.0-37.0); MEAN PLATELET VOLUME 10.3 fl (9.6-12.3); MONO # 0.6 10*3/uL (0.1-1.0); MONO % 5.7 % (3.0-9.0); NEUT # 8.3 10*3/uL (2.3-7.9); NEUT % 78.1 % (47.0-73.0); PLATELET COUNT AUTOMATED 297 10*3/uL (130-400); RED BLOOD COUNT 4.39 10*6/uL (4.10-5.10); RED CELL DISTRI WIDTH 15.5 % (0-14.5); WHITE BLOOD COUNT 10.6 10*3/uL (4.8-10.8)
[2022-11-29 14:27] LABS: ALKALINE PHOSPHATASE 78 U/L (46-116); BUN 13 mg/dl (9-23); CHLORIDE 99 mmol/L (98-107); SGPT/ALT 9 U/L (10-49); TOTAL PROTEIN 7.1 gm/dL (6.0-8.0)
[2022-11-29] MEDS ORDERED: ZITHROMAX250 MG PO (16:47)
[2022-11-29] MEDS ORDERED: PREDNISONE20 M1 PO (16:47)
== END 2022-11-29 16:53 | disposition home or self-care (01) ==
LOC: ED 13:25
PROVIDERS: Nurse Practitioner Family
DX: J44.1 Chronic obstructive pulmonary disease with (acute) exacerbation (principal); I10 Essential (primary) hypertension; F32.A Depression, unspecified; E78.00 Pure hypercholesterolemia, unspecified; Z88.5 Allergy status to narcotic agent; Z88.8 Allergy status to other drugs, medicaments and biological substances; Z88.1 Allergy status to other antibiotic agents; Z90.710 Acquired absence of both cervix and uterus; Z98.890 Other specified postprocedural states; Z98.51 Tubal ligation status; Z90.49 Acquired absence of other specified parts of digestive tract; Z87.891 Personal history of nicotine dependence; Z20.822 Contact with and (suspected) exposure to COVID-19

== ENCOUNTER 2023-02-27 11:41 | Inpatient (IN) | payer OTHER ==
[~2023-02-27] VITALS: Ht 167.6 cm; Wt 114.4 kg
[2023-02-27 11:41] VITALS: BP 141/52
[~2023-02-27 11:41] MED LIST changes: +ESOMEPRAZOLE MA40 M1 PO; +MELOXICAM7.5 MG PO; +ZITHROMAX250 MG PO
[2023-02-27 12:25] LABS: BASO % 0.3 % (0.0-1.0); EOS # 0.1 10*3/uL (0.0-0.4); EOS % 0.7 % (1.0-4.0); HEMATOCRIT 38.5 % (37.0-47.0); LYMPH # 1.6 10*3/uL (1.3-4.4); LYMPH % 13.5 % (27.0-41.0); MEAN CELL VOLUME 93.4 fl (81.0-99.0); MEAN CORPUSCULAR HGB 29.6 pg (27.0-31.0); MEAN CORPUSCULAR HGB CONC 31.7 g/dl (33.0-37.0); MEAN PLATELET VOLUME 10.1 fl (9.6-12.3); MONO # 0.7 10*3/uL (0.1-1.0); MONO % 5.5 % (3.0-9.0); NEUT # 9.3 10*3/uL (2.3-7.9); NEUT % 79.4 % (47.0-73.0); PLATELET COUNT AUTOMATED 288 10*3/uL (130-400); RED BLOOD COUNT 4.12 10*6/uL (4.10-5.10); RED CELL DISTRI WIDTH 16.3 % (0-14.5); WHITE BLOOD COUNT 11.8 10*3/uL (4.8-10.8)
[2023-02-27 12:34] LABS: ACT PARTIAL THROMBO TIME 28.6 SECONDS (20.0-32.1)
[2023-02-27 12:50] LABS: ALKALINE PHOSPHATASE 75 U/L (46-116); BUN 15 mg/dl (9-23); CHLORIDE 98 mmol/L (98-107); LIPASE 51 U/L (12-53); POTASSIUM 3.8 mmol/L (3.4-5.1); SGPT/ALT 17 U/L (10-49); TOTAL PROTEIN 6.8 gm/dL (6.0-8.0)
[2023-02-27 14:55] VITALS: BP 121/47
[2023-02-27 15:00] VITALS: BP 102/89; BP 108/89
[2023-02-27] MEDS ORDERED: FUROSEMIDE80 MG PO (15:35)
[2023-02-27] MEDS ORDERED: ALLEGRA ALLERG180 M2 PO (15:35)
[2023-02-27] MEDS ORDERED: PREDNISONE5 MG PO (15:37)
[2023-02-27 17:52] VITALS: BP 126/50
[2023-02-27 20:00] VITALS: BP 115/50
[2023-02-28 06:31] LABS: CHOLESTEROL 163 mg/dL (<200); LDL CHOLESTEROL 97 mg/dL (9-159); TRIGLYCERIDES 155 mg/dl (<150)
[2023-02-28 07:31] LABS: BILIRUBIN Negative (Negative); BLOOD Negative (Negative); CLARITY Clear (Clear); COLOR Yellow (Yellow); GLUCOSE Negative (Negative); KETONE Negative (Negative); LEUKO ESTERASE 1+ (Negative); NITRITE Negative (Negative); UROBILINOGEN 0.2 E.U./dl (0.0-1.0)
[2023-02-28 07:38] LABS: BACTERIA 3+; EPITHELIAL CELLS 0-2; YEAST 1+
[2023-02-28 08:00] VITALS: BP 107/53
[2023-02-28 12:00] VITALS: BP 110/74
[2023-02-28 16:00] VITALS: BP 130/63
[2023-02-28 20:00] VITALS: BP 125/50
[2023-03-01] VITALS: BP 110/51
[2023-03-01 06:59] LABS: BUN 19 mg/dl (9-23); CHLORIDE 98 mmol/L (98-107); POTASSIUM 4.2 mmol/L (3.4-5.1)
[2023-03-01 08:00] VITALS: BP 118/56
[2023-03-01] MEDS ORDERED: CLOPIDOGREL75 MG PO (08:43)
[2023-03-01] MEDS ORDERED: ATORVASTATIN CA40 M1 PO (08:43)
[2023-03-01] MEDS ORDERED: TOPROL XL50 M1 PO (08:43)
[2023-03-01 12:00] VITALS: BP 105/44
== END 2023-03-01 16:14 | disposition home or self-care (01) | DRG 69 ==
LOC: ED 11:41 → 4E 13:22 → EDHOLD 13:22 → 4E 13:46
PROVIDERS: Internal Medicine; ADMIT Internal Medicine; ATTEND Internal Medicine
DX: G45.9 Transient cerebral ischemic attack, unspecified (principal); I47.1 Supraventricular tachycardia; I10 Essential (primary) hypertension; K21.9 Gastro-esophageal reflux disease without esophagitis; J44.9 Chronic obstructive pulmonary disease, unspecified; J96.10 Chronic respiratory failure, unspecified whether with hypoxia or hypercapnia; E78.2 Mixed hyperlipidemia; E11.9 Type 2 diabetes mellitus without complications; F17.210 Nicotine dependence, cigarettes, uncomplicated; J45.909 Unspecified asthma, uncomplicated; Z86.73 Personal history of transient ischemic attack (TIA), and cerebral infarction without residual deficits; Z83.3 Family history of diabetes mellitus; Z82.49 Family history of ischemic heart disease and other diseases of the circulatory system; Z88.5 Allergy status to narcotic agent; Z88.1 Allergy status to other antibiotic agents; Z90.710 Acquired absence of both cervix and uterus

== ENCOUNTER → 2023-03-14 | Outpatient (CLI) | payer OTHER ==
[~2023-03-14] MED LIST changes: +ALLEGRA ALLERG180 M2 PO; +ATORVASTATIN CA40 M1 PO; +CLOPIDOGREL75 MG PO; +FUROSEMIDE80 MG PO; +TOPROL XL50 M1 PO
== END | disposition home or self-care (01) ==
LOC: MAMMO 01:43
PROVIDERS: ATTEND Internal Medicine
DX: Z12.31 Encounter for screening mammogram for malignant neoplasm of breast (principal); N64.9 Disorder of breast, unspecified

== ENCOUNTER → 2023-04-12 | Outpatient (CLI) | payer OTHER | END | disposition home or self-care (01) | LOC: CARD 03-29 08:00 | PROVIDERS: ATTEND Internal Medicine Cardiovascular Disease | DX: I25.10 Atherosclerotic heart disease of native coronary artery without angina pectoris (principal); R53.81 Other malaise ==

== ENCOUNTER 2023-04-17 08:27 | Emergency (ER) | payer OTHER, MEDICARE ==
[~2023-04-17] VITALS: Ht 167.6 cm; Wt 113.9 kg
[2023-04-17] MEDS ORDERED: ESOMEPRAZOLE MA40 M1 PO (08:46)
[2023-04-17] MEDS ORDERED: GEMFIBROZIL600 MG PO (08:47)
[2023-04-17 09:49] LABS: BASO # 0.1 10*3/uL (0.0-0.1); BASO % 0.5 % (0.0-1.0); EOS # 0.1 10*3/uL (0.0-0.4); EOS % 0.9 % (1.0-4.0); HEMATOCRIT 34.8 % (37.0-47.0); LYMPH # 1.6 10*3/uL (1.3-4.4); LYMPH % 15.2 % (27.0-41.0); MEAN CELL VOLUME 97.5 fl (81.0-99.0); MEAN CORPUSCULAR HGB CONC 30.7 g/dl (33.0-37.0); MEAN PLATELET VOLUME 10.4 fl (9.6-12.3); MONO # 0.7 10*3/uL (0.1-1.0); MONO % 6.4 % (3.0-9.0); NEUT # 7.9 10*3/uL (2.3-7.9); NEUT % 76.4 % (47.0-73.0); NUCLEATED RED BLOOD CELL 0.2 % (0.0-0.0); PLATELET COUNT AUTOMATED 330 10*3/uL (130-400); RED BLOOD COUNT 3.57 10*6/uL (4.10-5.10); RED CELL DISTRI WIDTH 16.3 % (0-14.5); WHITE BLOOD COUNT 10.4 10*3/uL (4.8-10.8)
[2023-04-17 10:05] LABS: ALKALINE PHOSPHATASE 72 U/L (46-116); BUN 10 mg/dl (9-23); CHLORIDE 103 mmol/L (98-107); POTASSIUM 4.5 mmol/L (3.4-5.1); SGPT/ALT 11 U/L (10-49); TOTAL PROTEIN 6.3 gm/dL (6.0-8.0)
[2023-04-17] MEDS ORDERED: PREDNISONE50 MG PO (10:26)
[2023-04-17] MEDS ORDERED: ZITHROMAX250 MG PO (10:26)
== END 2023-04-17 10:36 | disposition home or self-care (01) ==
LOC: ED 08:27
PROVIDERS: Internal Medicine
DX: J44.1 Chronic obstructive pulmonary disease with (acute) exacerbation (principal); I10 Essential (primary) hypertension; F32.A Depression, unspecified; E78.00 Pure hypercholesterolemia, unspecified; Z88.1 Allergy status to other antibiotic agents; Z88.5 Allergy status to narcotic agent; Z88.8 Allergy status to other drugs, medicaments and biological substances; Z90.710 Acquired absence of both cervix and uterus; Z90.49 Acquired absence of other specified parts of digestive tract; Z98.890 Other specified postprocedural states

== ENCOUNTER 2023-04-21 12:31 | Inpatient (IN) | payer OTHER, MEDICARE ==
[~2023-04-21] VITALS: Ht 167.6 cm; Wt 113.9 kg
[2023-04-21 12:36] VITALS: BP 112/56
[2023-04-21] MEDS ORDERED: NEXIUM40 MG PO (12:42)
[2023-04-21] MEDS ORDERED: ZESTRIL20 MG PO (12:43)
[2023-04-21] MEDS ORDERED: K-TAB10 MEQ PO (12:43)
[2023-04-21] MEDS ORDERED: Lasix80 MG PO (12:43)
[2023-04-21] MEDS ORDERED: GLUMETZA500 MG PO (12:43)
[2023-04-21] MEDS ORDERED: METOPROLOL SUCC50 M1 PO (12:44)
[2023-04-21] MEDS ORDERED: PLAVIX75 M1 PO (12:44)
[2023-04-21] MEDS ORDERED: ASPIRIN81 M1 PO (12:44)
[2023-04-21] MEDS ORDERED: GEMFIBROZIL600 MG PO (12:44)
[2023-04-21] MEDS ORDERED: LIPITOR40 MG PO (12:45)
[2023-04-21] MEDS ORDERED: MELOXICAM7.5 MG PO (12:45)
[2023-04-21 13:05] LABS: BASO % 0.4 % (0.0-1.0); EOS # 0.1 10*3/uL (0.0-0.4); EOS % 0.7 % (1.0-4.0); HEMATOCRIT 32.3 % (37.0-47.0); LYMPH # 1.1 10*3/uL (1.3-4.4); LYMPH % 11.7 % (27.0-41.0); MEAN CORPUSCULAR HGB 29.4 pg (27.0-31.0); MEAN CORPUSCULAR HGB CONC 30.3 g/dl (33.0-37.0); MEAN PLATELET VOLUME 10.1 fl (9.6-12.3); MONO # 0.6 10*3/uL (0.1-1.0); MONO % 5.9 % (3.0-9.0); NEUT # 7.6 10*3/uL (2.3-7.9); NEUT % 81.1 % (47.0-73.0); PLATELET COUNT AUTOMATED 306 10*3/uL (130-400); RED BLOOD COUNT 3.33 10*6/uL (4.10-5.10); RED CELL DISTRI WIDTH 15.6 % (0-14.5); WHITE BLOOD COUNT 9.3 10*3/uL (4.8-10.8)
[2023-04-21 13:18] LABS: ACT PARTIAL THROMBO TIME 27.7 SECONDS (20.0-32.1)
[2023-04-21 13:26] LABS: ALKALINE PHOSPHATASE 69 U/L (46-116); BUN 11 mg/dl (9-23); CHLORIDE 101 mmol/L (98-107); LIPASE 36 U/L (12-53); POTASSIUM 4.3 mmol/L (3.4-5.1); SGPT/ALT 11 U/L (10-49); TOTAL PROTEIN 6.3 gm/dL (6.0-8.0)
[2023-04-21 19:19] VITALS: BP 113/46
[2023-04-21 20:31] VITALS: BP 128/56
[2023-04-21 22:06] VITALS: BP 112/52
[2023-04-22 00:55] VITALS: BP 103/84
[2023-04-22 08:00] VITALS: BP 124/50
[2023-04-22 12:00] VITALS: BP 109/51
[2023-04-22 16:00] VITALS: BP 100/46
[2023-04-22 20:00] VITALS: BP 113/66
[2023-04-23] VITALS: BP 137/60
[2023-04-23 08:00] VITALS: BP 124/56
[2023-04-23 12:00] VITALS: BP 132/65
[2023-04-23 16:00] VITALS: BP 111/42
[2023-04-23 16:02] VITALS: BP 114/52
[2023-04-23 20:00] VITALS: BP 127/52
[2023-04-24] VITALS: BP 120/54
[2023-04-24 08:00] VITALS: BP 126/56
[2023-04-24 12:00] VITALS: BP 132/60
[2023-04-24 16:00] VITALS: BP 116/58
[2023-04-24 20:00] VITALS: BP 130/54
[2023-04-25] VITALS: BP 123/63
[2023-04-25 08:00] VITALS: BP 137/64
[2023-04-25] MEDS ORDERED: PREDNISONE5 MG PO (08:31)
[2023-04-25] MEDS ORDERED: TOPROL XL100 MG PO (08:31)
[2023-04-25] MEDS ORDERED: CEFUROXIME AXE250 MG PO (08:31)
[2023-04-25 12:00] VITALS: BP 109/55
== END 2023-04-25 13:30 | disposition home or self-care (01) | DRG 202 ==
LOC: ED 12:31 → EDHOLD 15:11 → 4E 15:11
PROVIDERS: Emergency Medicine; ADMIT Internal Medicine; ATTEND Internal Medicine
DX: J20.9 Acute bronchitis, unspecified (principal); I47.29 Other ventricular tachycardia; Z68.41 Body mass index [BMI] 40.0-44.9, adult; J96.10 Chronic respiratory failure, unspecified whether with hypoxia or hypercapnia; J43.2 Centrilobular emphysema; I10 Essential (primary) hypertension; E11.9 Type 2 diabetes mellitus without complications; F17.210 Nicotine dependence, cigarettes, uncomplicated; E78.2 Mixed hyperlipidemia; K21.9 Gastro-esophageal reflux disease without esophagitis; E66.01 Morbid (severe) obesity due to excess calories; Z88.1 Allergy status to other antibiotic agents; Z88.5 Allergy status to narcotic agent; Z88.8 Allergy status to other drugs, medicaments and biological substances; Z90.49 Acquired absence of other specified parts of digestive tract; Z90.710 Acquired absence of both cervix and uterus; Z83.3 Family history of diabetes mellitus; Z82.49 Family history of ischemic heart disease and other diseases of the circulatory system; Z86.73 Personal history of transient ischemic attack (TIA), and cerebral infarction without residual deficits; Z79.899 Other long term (current) drug therapy; Z71.6 Tobacco abuse counseling; Z79.84 Long term (current) use of oral hypoglycemic drugs

== ENCOUNTER 2023-05-19 13:02 | Inpatient (IN) | payer OTHER, MEDICARE ==
[~2023-05-19] VITALS: Ht 168 cm; Wt 112.7 kg
[~2023-05-19 13:02] MED LIST changes: +GLUMETZA500 MG PO; +K-TAB10 MEQ PO; +LIPITOR40 MG PO; +Lasix80 MG PO; +METOPROLOL SUCC50 M1 PO; +PLAVIX75 M1 PO; +TOPROL XL100 MG PO
[2023-05-19 13:11] VITALS: BP 119/51
[2023-05-19 13:47] LABS: BILIRUBIN Negative (Negative); BLOOD Negative (Negative); CLARITY Clear (Clear); COLOR Yellow (Yellow); GLUCOSE Negative (Negative); KETONE Negative (Negative); LEUKO ESTERASE Negative (Negative); NITRITE Negative (Negative); SPECIFIC GRAVITY <= 1.005 (1.001-1.030); UROBILINOGEN 0.2 E.U./dl (0.0-1.0)
[2023-05-19 13:47] LABS: BASO % 0.2 % (0.0-1.0); EOS % 0.2 % (1.0-4.0); HEMATOCRIT 26.8 % (37.0-47.0); LYMPH # 1.2 10*3/uL (1.3-4.4); LYMPH % 12.2 % (27.0-41.0); MEAN CELL VOLUME 91.8 fl (81.0-99.0); MEAN CORPUSCULAR HGB 27.7 pg (27.0-31.0); MEAN CORPUSCULAR HGB CONC 30.2 g/dl (33.0-37.0); MEAN PLATELET VOLUME 10.4 fl (9.6-12.3); MONO # 0.5 10*3/uL (0.1-1.0); MONO % 5.1 % (3.0-9.0); PLATELET COUNT AUTOMATED 338 10*3/uL (130-400); RED BLOOD COUNT 2.92 10*6/uL (4.10-5.10); RED CELL DISTRI WIDTH 14.8 % (0-14.5); WHITE BLOOD COUNT 9.7 10*3/uL (4.8-10.8)
[2023-05-19 14:02] LABS: PH 8.5 (4.5-8.0)
[2023-05-19 14:05] LABS: ACT PARTIAL THROMBO TIME 27.1 SECONDS (20.0-32.1); INTERNATIONAL NORM RATIO 1.1 (2.0-3.5)
[2023-05-19 14:15] LABS: ALKALINE PHOSPHATASE 80 U/L (46-116); BUN 8 mg/dl (9-23); CHLORIDE 98 mmol/L (98-107); LIPASE 28 U/L (12-53); POTASSIUM 3.8 mmol/L (3.4-5.1); SGPT/ALT 28 U/L (10-49); TOTAL PROTEIN 6.6 gm/dL (6.0-8.0)
[2023-05-19 14:26] LABS: BACTERIA 1+; YEAST 1+
[2023-05-19 16:00] VITALS: BP 123/51
[2023-05-19 21:26] VITALS: BP 112/40
[2023-05-19 23:44] VITALS: BP 98/41
[2023-05-20 03:19] VITALS: BP 105/38
[2023-05-20 06:09] LABS: BASO % 0.2 % (0.0-1.0); HEMATOCRIT 26.8 % (37.0-47.0); LYMPH # 1.2 10*3/uL (1.3-4.4); LYMPH % 11.8 % (27.0-41.0); MEAN CELL VOLUME 92.4 fl (81.0-99.0); MEAN CORPUSCULAR HGB 26.9 pg (27.0-31.0); MEAN CORPUSCULAR HGB CONC 29.1 g/dl (33.0-37.0); MEAN PLATELET VOLUME 10.6 fl (9.6-12.3); MONO # 0.4 10*3/uL (0.1-1.0); MONO % 4.2 % (3.0-9.0); NEUT # 8.3 10*3/uL (2.3-7.9); NEUT % 83.1 % (47.0-73.0); PLATELET COUNT AUTOMATED 334 10*3/uL (130-400); RED CELL DISTRI WIDTH 14.9 % (0-14.5); WHITE BLOOD COUNT 9.9 10*3/uL (4.8-10.8)
[2023-05-20 06:12] LABS: BUN 13 mg/dl (9-23); CHLORIDE 98 mmol/L (98-107); POTASSIUM 4.3 mmol/L (3.4-5.1)
[2023-05-20 06:14] VITALS: BP 115/48
[2023-05-20 11:56] VITALS: BP 101/36
[2023-05-20 16:00] VITALS: BP 123/51
[2023-05-20] MEDS ORDERED: BUMETANIDE2 MG PO (16:12)
[2023-05-20] MEDS ORDERED: DIPYRIDAMOLE25 MG PO (16:15)
[2023-05-20] MEDS ORDERED: PROVENTIL HFA6.7 GM INH (16:17)
[2023-05-20 20:00] VITALS: BP 126/53
[2023-05-21] VITALS: BP 125/58
[2023-05-21 05:28] LABS: BUN 19 mg/dl (9-23); CHLORIDE 98 mmol/L (98-107); POTASSIUM 4.5 mmol/L (3.4-5.1)
[2023-05-21 06:22] LABS: BASO % 0.4 % (0.0-1.0); EOS # 0.1 10*3/uL (0.0-0.4); EOS % 0.5 % (1.0-4.0); HEMATOCRIT 26.1 % (37.0-47.0); LYMPH # 2.1 10*3/uL (1.3-4.4); LYMPH % 18.5 % (27.0-41.0); MEAN CELL VOLUME 93.2 fl (81.0-99.0); MEAN CORPUSCULAR HGB 27.9 pg (27.0-31.0); MEAN CORPUSCULAR HGB CONC 29.9 g/dl (33.0-37.0); MEAN PLATELET VOLUME 10.9 fl (9.6-12.3); MONO # 0.7 10*3/uL (0.1-1.0); MONO % 6.5 % (3.0-9.0); NEUT # 8.2 10*3/uL (2.3-7.9); NEUT % 73.8 % (47.0-73.0); PLATELET COUNT AUTOMATED 357 10*3/uL (130-400); RED CELL DISTRI WIDTH 15.2 % (0-14.5); WHITE BLOOD COUNT 11.1 10*3/uL (4.8-10.8)
[2023-05-21 08:00] VITALS: BP 118/54
[2023-05-21 12:00] VITALS: BP 108/43
[2023-05-21 16:00] VITALS: BP 107/51
[2023-05-21 20:00] VITALS: BP 108/58
[2023-05-22] VITALS: BP 117/55
[2023-05-22 08:00] VITALS: BP 118/49
[2023-05-22 12:00] VITALS: BP 101/43
[2023-05-22 16:00] VITALS: BP 101/37
[2023-05-22] MEDS ORDERED: Ferrex 150150 MG PO (17:05)
== END 2023-05-22 18:05 | disposition home or self-care (01) | DRG 291 ==
LOC: ED 13:02 → 5E 14:35 → EDHOLD 14:35 → 5E 05-20 14:26
PROVIDERS: Emergency Medicine; ADMIT Internal Medicine; ATTEND Internal Medicine
DX: I11.0 Hypertensive heart disease with heart failure (principal); I50.33 Acute on chronic diastolic (congestive) heart failure; J44.1 Chronic obstructive pulmonary disease with (acute) exacerbation; J96.10 Chronic respiratory failure, unspecified whether with hypoxia or hypercapnia; E11.9 Type 2 diabetes mellitus without complications; K21.9 Gastro-esophageal reflux disease without esophagitis; F17.210 Nicotine dependence, cigarettes, uncomplicated; E78.2 Mixed hyperlipidemia; E66.01 Morbid (severe) obesity due to excess calories; D50.9 Iron deficiency anemia, unspecified; Z68.41 Body mass index [BMI] 40.0-44.9, adult; Z88.1 Allergy status to other antibiotic agents; Z88.5 Allergy status to narcotic agent; Z88.8 Allergy status to other drugs, medicaments and biological substances; Z83.3 Family history of diabetes mellitus; Z82.49 Family history of ischemic heart disease and other diseases of the circulatory system; Z86.73 Personal history of transient ischemic attack (TIA), and cerebral infarction without residual deficits

== ENCOUNTER 2023-06-21 09:26 | Inpatient (IN) | payer OTHER, MEDICARE ==
[2023-06-21] VITALS (7 sets, daily range): BP systolic 101–130; BP diastolic 40–67
[~2023-06-21] VITALS: Ht 167.6 cm; Wt 112.7 kg
[~2023-06-21 09:26] MED LIST changes: +Ferrex 150150 MG PO; +PROVENTIL HFA6.7 GM INH
[2023-06-21 10:44] LABS: BASO % 0.3 % (0.0-1.0); EOS # 0.1 10*3/uL (0.0-0.4); EOS % 0.5 % (1.0-4.0); HEMATOCRIT 24.3 % (37.0-47.0); LYMPH # 1.6 10*3/uL (1.3-4.4); LYMPH % 17.3 % (27.0-41.0); MEAN CELL VOLUME 87.4 fl (81.0-99.0); MEAN CORPUSCULAR HGB 26.3 pg (27.0-31.0); MEAN PLATELET VOLUME 9.9 fl (9.6-12.3); MONO # 0.6 10*3/uL (0.1-1.0); NEUT # 6.9 10*3/uL (2.3-7.9); NEUT % 75.4 % (47.0-73.0); PLATELET COUNT AUTOMATED 370 10*3/uL (130-400); RED BLOOD COUNT 2.78 10*6/uL (4.10-5.10); RED CELL DISTRI WIDTH 15.5 % (0-14.5); WHITE BLOOD COUNT 9.1 10*3/uL (4.8-10.8)
[2023-06-21 11:08] LABS: ALKALINE PHOSPHATASE 68 U/L (46-116); BUN 11 mg/dl (9-23); CHLORIDE 100 mmol/L (98-107); TOTAL PROTEIN 6.2 gm/dL (6.0-8.0)
[2023-06-21 11:11] LABS: SGPT/ALT < 7 U/L (5-49)
[2023-06-21] MEDS ORDERED: PREDNISONE5 MG PO (17:21)
[2023-06-21] MEDS ORDERED: METOPROLOL SUC100 M1 PO (17:23)
[2023-06-22] VITALS: BP 115/48
[2023-06-22 06:25] LABS: BASO % 0.2 % (0.0-1.0); HEMATOCRIT 24.7 % (37.0-47.0); LYMPH # 1.5 10*3/uL (1.3-4.4); LYMPH % 12.2 % (27.0-41.0); MEAN CELL VOLUME 88.5 fl (81.0-99.0); MEAN CORPUSCULAR HGB 25.1 pg (27.0-31.0); MEAN CORPUSCULAR HGB CONC 28.3 g/dl (33.0-37.0); MEAN PLATELET VOLUME 10.4 fl (9.6-12.3); MONO # 0.6 10*3/uL (0.1-1.0); NEUT # 9.9 10*3/uL (2.3-7.9); NEUT % 81.8 % (47.0-73.0); PLATELET COUNT AUTOMATED 408 10*3/uL (130-400); RED BLOOD COUNT 2.79 10*6/uL (4.10-5.10); RED CELL DISTRI WIDTH 15.4 % (0-14.5); WHITE BLOOD COUNT 12.1 10*3/uL (4.8-10.8)
[2023-06-22 06:53] LABS: BUN 13 mg/dl (9-23); CHLORIDE 102 mmol/L (98-107)
[2023-06-22 06:55] LABS: POTASSIUM 5.1 mmol/L (3.4-5.1)
[2023-06-22 07:29] LABS: ABG BASE EXCESS 9.6 mmol/L (-2.0-2.0); ARTERIAL BLOOD GAS PH 7.366 (7.35-7.45)
[2023-06-22 08:00] VITALS: BP 109/49
[2023-06-22 12:00] VITALS: BP 106/49
[2023-06-22 15:50] VITALS: BP 102/45
[2023-06-22 20:00] VITALS: BP 107/42
[2023-06-23] VITALS (10 sets, daily range): BP systolic 90–119; BP diastolic 39–67
[2023-06-23 06:07] LABS: HEMATOCRIT 23.6 % (37.0-47.0); MEAN CELL VOLUME 88.4 fl (81.0-99.0); MEAN CORPUSCULAR HGB 25.5 pg (27.0-31.0); MEAN CORPUSCULAR HGB CONC 28.8 g/dl (33.0-37.0); MEAN PLATELET VOLUME 10.6 fl (9.6-12.3); PLATELET COUNT AUTOMATED 380 10*3/uL (130-400); RED BLOOD COUNT 2.67 10*6/uL (4.10-5.10); RED CELL DISTRI WIDTH 15.5 % (0-14.5); WHITE BLOOD COUNT 12.7 10*3/uL (4.8-10.8)
[2023-06-23 06:15] LABS: ALKALINE PHOSPHATASE 62 U/L (46-116); BUN 21 mg/dl (9-23); CHLORIDE 98 mmol/L (98-107); POTASSIUM 5.7 mmol/L (3.4-5.1); TOTAL PROTEIN 6.3 gm/dL (6.0-8.0)
[2023-06-23 06:22] LABS: MANUAL DIFF REFLEX YES
[2023-06-23 06:26] LABS: SGPT/ALT < 7 U/L (5-49)
[2023-06-23 07:08] LABS: PLATELET SUFFICIENCY NORMAL (NORMAL); POLYCHROMASIA SLIGHT; TOTAL CELLS COUNTED 100 #CELLS
[2023-06-23 12:08] LABS: URINE BLOOD,POST TRANSFUSION Negative (Negative); URINE RBC,POST TRANSFUSION 0-2 rbc/hpf (0-2)
[2023-06-24] VITALS (17 sets, daily range): BP systolic 97–129; BP diastolic 35–65
[2023-06-24 06:27] LABS: HEMATOCRIT 22.5 % (37.0-47.0); MEAN CELL VOLUME 87.2 fl (81.0-99.0); MEAN CORPUSCULAR HGB 25.2 pg (27.0-31.0); MEAN CORPUSCULAR HGB CONC 28.9 g/dl (33.0-37.0); MEAN PLATELET VOLUME 10.4 fl (9.6-12.3); PLATELET COUNT AUTOMATED 343 10*3/uL (130-400); RED BLOOD COUNT 2.58 10*6/uL (4.10-5.10); RED CELL DISTRI WIDTH 15.7 % (0-14.5); WHITE BLOOD COUNT 10.9 10*3/uL (4.8-10.8)
[2023-06-24 06:36] LABS: MANUAL DIFF REFLEX YES
[2023-06-24 06:56] LABS: ALKALINE PHOSPHATASE 57 U/L (46-116); BUN 24 mg/dl (9-23); CHLORIDE 101 mmol/L (98-107); POTASSIUM 4.9 mmol/L (3.4-5.1); TOTAL PROTEIN 5.9 gm/dL (6.0-8.0)
[2023-06-24 06:58] LABS: SGPT/ALT < 7 U/L (5-49)
[2023-06-24 07:14] LABS: PLATELET SUFFICIENCY NORMAL (NORMAL); POLYCHROMASIA SLIGHT; TOTAL CELLS COUNTED 100 #CELLS
[2023-06-24 07:15] LABS: TARGET CELLS FEW
[2023-06-24 17:27] LABS: HEMATOCRIT 26.7 % (37.0-47.0)
[2023-06-25] VITALS: BP 111/49
[2023-06-25 06:30] LABS: BASO % 0.2 % (0.0-1.0); EOS % 0.1 % (1.0-4.0); HEMATOCRIT 27.9 % (37.0-47.0); LYMPH # 1.9 10*3/uL (1.3-4.4); LYMPH % 16.2 % (27.0-41.0); MEAN CELL VOLUME 87.7 fl (81.0-99.0); MEAN CORPUSCULAR HGB 26.1 pg (27.0-31.0); MEAN CORPUSCULAR HGB CONC 29.7 g/dl (33.0-37.0); MEAN PLATELET VOLUME 10.6 fl (9.6-12.3); MONO # 0.8 10*3/uL (0.1-1.0); MONO % 6.4 % (3.0-9.0); NEUT # 8.9 10*3/uL (2.3-7.9); NEUT % 76.4 % (47.0-73.0); PLATELET COUNT AUTOMATED 344 10*3/uL (130-400); RED BLOOD COUNT 3.18 10*6/uL (4.10-5.10); RED CELL DISTRI WIDTH 15.5 % (0-14.5); WHITE BLOOD COUNT 11.7 10*3/uL (4.8-10.8)
[2023-06-25 07:37] LABS: ALKALINE PHOSPHATASE 55 U/L (46-116); BUN 19 mg/dl (9-23); CHLORIDE 101 mmol/L (98-107); POTASSIUM 4.8 mmol/L (3.4-5.1); SGPT/ALT 8 U/L (5-49); TOTAL PROTEIN 5.9 gm/dL (6.0-8.0)
[2023-06-25 08:00] VITALS: BP 101/49
[2023-06-25 12:00] VITALS: BP 132/59
[2023-06-25 16:00] VITALS: BP 116/41
[2023-06-25 20:00] VITALS: BP 101/36
[2023-06-26] VITALS: BP 101/38
[2023-06-26 06:15] LABS: ALKALINE PHOSPHATASE 58 U/L (46-116); BUN 17 mg/dl (9-23); CHLORIDE 100 mmol/L (98-107); POTASSIUM 4.8 mmol/L (3.4-5.1); SGPT/ALT 9 U/L (5-49); TOTAL PROTEIN 6.1 gm/dL (6.0-8.0)
[2023-06-26 06:29] LABS: BASO % 0.2 % (0.0-1.0); HEMATOCRIT 29.6 % (37.0-47.0); LYMPH % 13.4 % (27.0-41.0); MEAN CELL VOLUME 88.1 fl (81.0-99.0); MEAN CORPUSCULAR HGB 26.2 pg (27.0-31.0); MEAN CORPUSCULAR HGB CONC 29.7 g/dl (33.0-37.0); MEAN PLATELET VOLUME 10.5 fl (9.6-12.3); MONO # 0.9 10*3/uL (0.1-1.0); MONO % 5.9 % (3.0-9.0); NEUT # 11.7 10*3/uL (2.3-7.9); NEUT % 79.6 % (47.0-73.0); NUCLEATED RED BLOOD CELL 0.1 % (0.0-0.0); PLATELET COUNT AUTOMATED 362 10*3/uL (130-400); RED BLOOD COUNT 3.36 10*6/uL (4.10-5.10); RED CELL DISTRI WIDTH 15.8 % (0-14.5); WHITE BLOOD COUNT 14.7 10*3/uL (4.8-10.8)
[2023-06-26 08:00] VITALS: BP 105/46
[2023-06-26 12:00] VITALS: BP 107/41
[2023-06-26 16:00] VITALS: BP 100/46
[2023-06-26 20:00] VITALS: BP 103/35
[2023-06-27] VITALS: BP 111/52
[2023-06-27 06:36] LABS: BASO % 0.3 % (0.0-1.0); EOS % 0.3 % (1.0-4.0); HEMATOCRIT 27.6 % (37.0-47.0); LYMPH % 19.5 % (27.0-41.0); MEAN CELL VOLUME 87.9 fl (81.0-99.0); MEAN CORPUSCULAR HGB 26.4 pg (27.0-31.0); MEAN CORPUSCULAR HGB CONC 30.1 g/dl (33.0-37.0); MEAN PLATELET VOLUME 10.7 fl (9.6-12.3); MONO % 6.3 % (3.0-9.0); NEUT # 11.3 10*3/uL (2.3-7.9); NEUT % 72.5 % (47.0-73.0); PLATELET COUNT AUTOMATED 356 10*3/uL (130-400); RED BLOOD COUNT 3.14 10*6/uL (4.10-5.10); RED CELL DISTRI WIDTH 16.3 % (0-14.5); WHITE BLOOD COUNT 15.6 10*3/uL (4.8-10.8)
[2023-06-27 07:19] LABS: ALKALINE PHOSPHATASE 53 U/L (46-116); BUN 18 mg/dl (9-23); CHLORIDE 102 mmol/L (98-107); POTASSIUM 4.3 mmol/L (3.4-5.1); SGPT/ALT 10 U/L (5-49); TOTAL PROTEIN 5.6 gm/dL (6.0-8.0)
[2023-06-27 08:00] VITALS: BP 120/60
[2023-06-27] MEDS ORDERED: Ferrex 150150 MG PO (08:28)
[2023-06-27] MEDS ORDERED: IMDUR SA30 MG PO (08:28)
[2023-06-27] MEDS ORDERED: PREDNISONE5 MG PO (08:28)
== END 2023-06-27 11:02 | disposition home health service (06) | DRG 193 ==
LOC: ED 09:26 → 4E 12:23 → EDHOLD 12:23 → 4E 16:38
PROVIDERS: Family Medicine; Internal Medicine Critical Care Medicine; ADMIT Internal Medicine; ATTEND Internal Medicine
PROC: 5A0935A Assistance with Respiratory Ventilation, Less than 24 Consecutive Hours, High Flow/Velocity Cannula (ICD-10-PCS; principal; 2023-06-21)
PROC: 5A09357 Assistance with Respiratory Ventilation, Less than 24 Consecutive Hours, Continuous Positive Airway Pressure (ICD-10-PCS; 2023-06-21)
PROC: 5A09357 Assistance with Respiratory Ventilation, Less than 24 Consecutive Hours, Continuous Positive Airway Pressure (ICD-10-PCS; 2023-06-22)
PROC: 30233N1 Transfusion of Nonautologous Red Blood Cells into Peripheral Vein, Percutaneous Approach (ICD-10-PCS; 2023-06-23)
PROC: 5A09357 Assistance with Respiratory Ventilation, Less than 24 Consecutive Hours, Continuous Positive Airway Pressure (ICD-10-PCS; 2023-06-24)
PROC: 5A09357 Assistance with Respiratory Ventilation, Less than 24 Consecutive Hours, Continuous Positive Airway Pressure (ICD-10-PCS; 2023-06-25)
PROC: 5A09357 Assistance with Respiratory Ventilation, Less than 24 Consecutive Hours, Continuous Positive Airway Pressure (ICD-10-PCS; 2023-06-26)
DX: J18.9 Pneumonia, unspecified organism (principal); I50.33 Acute on chronic diastolic (congestive) heart failure; J96.21 Acute and chronic respiratory failure with hypoxia; J96.22 Acute and chronic respiratory failure with hypercapnia; E87.3 Alkalosis; D64.9 Anemia, unspecified; G47.33 Obstructive sleep apnea (adult) (pediatric); K21.9 Gastro-esophageal reflux disease without esophagitis; J43.9 Emphysema, unspecified; E66.01 Morbid (severe) obesity due to excess calories; F17.210 Nicotine dependence, cigarettes, uncomplicated; I11.0 Hypertensive heart disease with heart failure; E78.5 Hyperlipidemia, unspecified; D63.8 Anemia in other chronic diseases classified elsewhere; D50.0 Iron deficiency anemia secondary to blood loss (chronic); E78.2 Mixed hyperlipidemia; I25.10 Atherosclerotic heart disease of native coronary artery without angina pectoris; Z68.41 Body mass index [BMI] 40.0-44.9, adult; Z88.1 Allergy status to other antibiotic agents; Z88.5 Allergy status to narcotic agent; Z88.8 Allergy status to other drugs, medicaments and biological substances; Z83.3 Family history of diabetes mellitus; Z82.49 Family history of ischemic heart disease and other diseases of the circulatory system; Z86.73 Personal history of transient ischemic attack (TIA), and cerebral infarction without residual deficits

== ENCOUNTER 2023-08-03 04:57 | Inpatient (IN) | payer OTHER, MEDICARE ==
[~2023-08-03] VITALS: Ht 167.6 cm; Wt 113.0 kg
[2023-08-03] VITALS (10 sets, daily range): BP systolic 91–130; BP diastolic 35–53
[~2023-08-03 04:57] MED LIST changes: +IMDUR SA30 MG PO; +METOPROLOL SUC100 M1 PO
[2023-08-03 05:51] LABS: ACT PARTIAL THROMBO TIME 27.6 SECONDS (20.0-32.1)
[2023-08-03 05:57] LABS: ALKALINE PHOSPHATASE 70 U/L (46-116); BUN 9 mg/dl (9-23); CHLORIDE 99 mmol/L (98-107); POTASSIUM 3.9 mmol/L (3.4-5.1); SGPT/ALT 7 U/L (5-49); TOTAL PROTEIN 6.1 gm/dL (6.0-8.0)
[2023-08-03] MEDS ORDERED: LOPID600 M1 PO (06:00)
[2023-08-03] MEDS ORDERED: PLAVIX75 M1 PO (06:02)
[2023-08-03 06:04] LABS: BASO % 0.3 % (0.0-1.0); EOS % 0.4 % (1.0-4.0); HEMATOCRIT 27.9 % (37.0-47.0); LYMPH # 1.3 10*3/uL (1.3-4.4); LYMPH % 11.5 % (27.0-41.0); MEAN CELL VOLUME 91.8 fl (81.0-99.0); MEAN CORPUSCULAR HGB 26.3 pg (27.0-31.0); MEAN CORPUSCULAR HGB CONC 28.7 g/dl (33.0-37.0); MONO # 0.7 10*3/uL (0.1-1.0); NEUT # 9.1 10*3/uL (2.3-7.9); NEUT % 80.4 % (47.0-73.0); PLATELET COUNT AUTOMATED 301 10*3/uL (130-400); RED BLOOD COUNT 3.04 10*6/uL (4.10-5.10); RED CELL DISTRI WIDTH 19.2 % (0-14.5); WHITE BLOOD COUNT 11.4 10*3/uL (4.8-10.8)
[2023-08-03] MEDS ORDERED: DIPYRIDAMOLE25 MG PO (06:04)
[2023-08-03] MEDS ORDERED: METFORMIN HYDR500 MG PO (06:06)
[2023-08-03] MEDS ORDERED: ZESTORETIC 20-1 EACH PO (06:07)
[2023-08-03] MEDS ORDERED: Ipratropium Brom3 ML INH (06:10)
[2023-08-03 07:37] LABS: ABG BASE EXCESS 12.9 mmol/L (-2.0-2.0); ARTERIAL BLOOD GAS PH 7.367 (7.35-7.45)
[2023-08-04] VITALS: BP 122/49
[2023-08-04 08:00] VITALS: BP 130/64
[2023-08-04] MEDS ORDERED: LISINOPRIL20 MG PO ×2 (08:41)
[2023-08-04 12:00] VITALS: BP 122/45
== END 2023-08-04 17:20 | disposition home or self-care (01) | DRG 291 ==
LOC: ED 04:57 → EDHOLD 07:55 → 5E 09:19
PROVIDERS: Internal Medicine; ADMIT Internal Medicine; ATTEND Internal Medicine
DX: I11.0 Hypertensive heart disease with heart failure (principal); I50.33 Acute on chronic diastolic (congestive) heart failure; J96.21 Acute and chronic respiratory failure with hypoxia; J44.1 Chronic obstructive pulmonary disease with (acute) exacerbation; I47.20 Ventricular tachycardia, unspecified; Z68.41 Body mass index [BMI] 40.0-44.9, adult; R91.8 Other nonspecific abnormal finding of lung field; D50.9 Iron deficiency anemia, unspecified; E66.01 Morbid (severe) obesity due to excess calories; E11.9 Type 2 diabetes mellitus without complications; Z88.6 Allergy status to analgesic agent; Z88.1 Allergy status to other antibiotic agents; Z88.8 Allergy status to other drugs, medicaments and biological substances; Z90.710 Acquired absence of both cervix and uterus; Z98.51 Tubal ligation status; Z90.49 Acquired absence of other specified parts of digestive tract; Z83.3 Family history of diabetes mellitus; Z82.49 Family history of ischemic heart disease and other diseases of the circulatory system; Z79.82 Long term (current) use of aspirin; Z79.899 Other long term (current) drug therapy; Z86.73 Personal history of transient ischemic attack (TIA), and cerebral infarction without residual deficits

== ENCOUNTER → 2024-04-14 | Outpatient (CLI) | payer OTHER, MEDICARE ==
[~2024-04-14] MED LIST changes: +ASPIRIN ADULT L81 M1 PO; +BUMETANIDE1 MG PO; +FERREX 150150 MG PO; +Ipratropium Brom3 ML INH; +SEPTDS PO; +Zaroxolyn,Diul2.5 MG PO
[2024-04-14 09:14] LABS: BASO # 0.1 10*3/uL (0.0-0.1); BASO % 0.5 % (0.0-1.0); EOS # 0.1 10*3/uL (0.0-0.4); EOS % 1.2 % (1.0-4.0); HEMATOCRIT 37.8 % (37.0-47.0); LYMPH # 1.9 10*3/uL (1.3-4.4); MEAN CELL VOLUME 91.3 fl (81.0-99.0); MEAN CORPUSCULAR HGB 30.2 pg (27.0-31.0); MEAN CORPUSCULAR HGB CONC 33.1 g/dl (33.0-37.0); MEAN PLATELET VOLUME 10.8 fl (9.6-12.3); MONO # 0.9 10*3/uL (0.1-1.0); MONO % 7.7 % (3.0-9.0); NEUT # 8.3 10*3/uL (2.3-7.9); NEUT % 73.1 % (47.0-73.0); PLATELET COUNT AUTOMATED 340 10*3/uL (130-400); RED BLOOD COUNT 4.14 10*6/uL (4.10-5.10); RED CELL DISTRI WIDTH 14.6 % (0-14.5); WHITE BLOOD COUNT 11.4 10*3/uL (4.8-10.8)
[2024-04-14 10:01] LABS: BUN 19 mg/dl (9-23); CHLORIDE 98 mmol/L (98-107); POTASSIUM 4.1 mmol/L (3.4-5.1)
== END | disposition home or self-care (01) ==
LOC: LAB 08:13
PROVIDERS: ATTEND Internal Medicine
DX: Z13.220 Encounter for screening for lipoid disorders (principal); Z13.228 Encounter for screening for other metabolic disorders; Z13.29 Encounter for screening for other suspected endocrine disorder; Z13.6 Encounter for screening for cardiovascular disorders; Z13.89 Encounter for screening for other disorder; Z13.9 Encounter for screening, unspecified; I11.0 Hypertensive heart disease with heart failure; I50.32 Chronic diastolic (congestive) heart failure; I25.10 Atherosclerotic heart disease of native coronary artery without angina pectoris; E11.9 Type 2 diabetes mellitus without complications; I27.81 Cor pulmonale (chronic); D64.9 Anemia, unspecified; I89.0 Lymphedema, not elsewhere classified

== ENCOUNTER 2024-09-08 09:36 | Inpatient (IN) | payer OTHER, MEDICARE ==
[~2024-09-08] VITALS: Ht 167.6 cm; Wt 111.8 kg
[2024-09-08 09:50] VITALS: BP 122/58
[2024-09-08] MEDS ORDERED: methylPREDNISolone sod succ 125 MG VIAL IV ONE (09:50)
[2024-09-08] MEDS ORDERED: Albuterol Sulfate 2.5 MG/3 ML VIAL NEB ONE (09:50)
[2024-09-08] MEDS ORDERED: MAGNESIUM SULFATE 50 ML IV ONE (09:50)
[2024-09-08 10:07] LABS: BASO # 0.1 10*3/uL (0.0-0.1); BASO % 0.5 % (0.0-1.0); EOS # 0.1 10*3/uL (0.0-0.4); EOS % 1.3 % (1.0-4.0); HEMATOCRIT 38.7 % (37.0-47.0); MEAN CORPUSCULAR HGB 30.3 pg (27.0-31.0); MEAN CORPUSCULAR HGB CONC 31.5 g/dl (33.0-37.0); MONO # 0.7 10*3/uL (0.1-1.0); MONO % 7.2 % (3.0-9.0); NEUT # 7.1 10*3/uL (2.3-7.9); NEUT % 73.6 % (47.0-73.0); PLATELET COUNT AUTOMATED 305 10*3/uL (130-400); RED BLOOD COUNT 4.03 10*6/uL (4.10-5.10); RED CELL DISTRI WIDTH 13.6 % (0-14.5); WHITE BLOOD COUNT 9.6 10*3/uL (4.8-10.8)
[2024-09-08 10:33] LABS: BUN 13 mg/dl (9-23); CHLORIDE 98 mmol/L (98-107); POTASSIUM 4.3 mmol/L (3.4-5.1)
[2024-09-08] MEDS ORDERED: BUMETANIDE1 MG PO (10:43)
[2024-09-08] MEDS ORDERED: FEROSUL325 MG PO (10:45)
[2024-09-08 11:59] VITALS: BP 104/49
[2024-09-08 13:49] VITALS: BP 111/39
[2024-09-08 15:27] VITALS: BP 108/47
[2024-09-08 16:30] VITALS: BP 103/48
[2024-09-08] MEDS ORDERED: METOLAZONE 2.5 MG TAB PO SCH (16:45)
[2024-09-08] MEDS ORDERED: Albuterol Sulf/Ipratropium 3 ML VIAL NEB SCH (16:57)
[2024-09-08] MEDS ORDERED: AZITHROMYCIN 250 ML IV SCH (18:00)
[2024-09-08] MEDS ORDERED: BUMETANIDE 1 MG TAB PO SCH (18:00)
[2024-09-08 20:00] VITALS: BP 107/52
[2024-09-08] MEDS ORDERED: methylPREDNISolone sod succ 40 MG VIAL IV SCH (22:00)
[2024-09-09] VITALS: BP 130/59
[2024-09-09] MEDS ORDERED: Pantoprazole Sodium 40 MG TAB PO SCH (06:00)
[2024-09-09 08:00] VITALS: BP 115/48
[2024-09-09] MEDS ORDERED: LISINOPRIL 20 MG TAB PO SCH (10:00)
[2024-09-09] MEDS ORDERED: POTASSIUM CHLORIDE 10 MEQ TAB PO SCH (10:00)
[2024-09-09] MEDS ORDERED: GEMFIBROZIL 600 MG TAB PO SCH (10:00)
[2024-09-09] MEDS ORDERED: predniSONE 5 MG TAB PO SCH (10:00)
[2024-09-09 12:00] VITALS: BP 131/61
[2024-09-09 16:00] VITALS: BP 118/52
[2024-09-09 20:00] VITALS: BP 111/53
[2024-09-10] VITALS: BP 112/47
[2024-09-10 08:00] VITALS: BP 138/78
[2024-09-10 12:00] VITALS: BP 130/70
[2024-09-10 16:00] VITALS: BP 110/46
[2024-09-10 20:00] VITALS: BP 107/44
[2024-09-11] VITALS: BP 109/56
[2024-09-11 08:00] VITALS: BP 118/54
[2024-09-11 12:00] VITALS: BP 123/56
== END 2024-09-11 12:45 | disposition home or self-care (01) | DRG 189 ==
LOC: ED 09:36 → EDHOLD 11:36 → 4E 11:36
PROVIDERS: Emergency Medicine; ADMIT Internal Medicine; ATTEND Internal Medicine
DX: J96.20 Acute and chronic respiratory failure, unspecified whether with hypoxia or hypercapnia (principal); J44.1 Chronic obstructive pulmonary disease with (acute) exacerbation; I50.32 Chronic diastolic (congestive) heart failure; Z68.41 Body mass index [BMI] 40.0-44.9, adult; E66.01 Morbid (severe) obesity due to excess calories; I12.9 Hypertensive chronic kidney disease with stage 1 through stage 4 chronic kidney disease, or unspecified chronic kidney disease; F17.210 Nicotine dependence, cigarettes, uncomplicated; E11.9 Type 2 diabetes mellitus without complications; Z88.8 Allergy status to other drugs, medicaments and biological substances; Z90.49 Acquired absence of other specified parts of digestive tract; Z90.710 Acquired absence of both cervix and uterus; Z98.51 Tubal ligation status; Z83.3 Family history of diabetes mellitus; Z82.49 Family history of ischemic heart disease and other diseases of the circulatory system

== ENCOUNTER 2024-12-08 13:46 | Emergency (ER) | payer OTHER ==
[~2024-12-08] VITALS: Ht 167.6 cm; Wt 110.2 kg
[~2024-12-08 13:46] MED LIST changes: +FEROSUL325 MG PO
[2024-12-08] MEDS ORDERED: NAPROSYN500 MG PO (15:29)
[2024-12-08] MEDS ORDERED: NAPROXEN 250 MG TAB PO ONE (15:30)
== END 2024-12-08 15:36 | disposition home or self-care (01) ==
LOC: ED 13:46
DX: M17.12 Unilateral primary osteoarthritis, left knee (principal); I10 Essential (primary) hypertension; J44.9 Chronic obstructive pulmonary disease, unspecified; J45.909 Unspecified asthma, uncomplicated; F32.A Depression, unspecified; E78.00 Pure hypercholesterolemia, unspecified; Z79.899 Other long term (current) drug therapy; Z88.1 Allergy status to other antibiotic agents; Z88.5 Allergy status to narcotic agent; Z88.8 Allergy status to other drugs, medicaments and biological substances; Z90.49 Acquired absence of other specified parts of digestive tract; Z98.51 Tubal ligation status; Z90.89 Acquired absence of other organs; Z98.890 Other specified postprocedural states

== ENCOUNTER → 2025-02-11 | Outpatient (CLI) | payer OTHER ==
[2025-02-11 08:10] LABS: BASO % 0.5 % (0.0-1.0); EOS # 0.2 10*3/uL (0.0-0.4); MEAN CELL VOLUME 95.1 fl (81.0-99.0); MEAN CORPUSCULAR HGB 30.3 pg (27.0-31.0); MEAN CORPUSCULAR HGB CONC 31.9 g/dl (33.0-37.0); MEAN PLATELET VOLUME 9.6 fl (9.6-12.3); MONO # 0.6 10*3/uL (0.1-1.0); MONO % 6.5 % (3.0-9.0); NEUT # 6.4 10*3/uL (2.3-7.9); NEUT % 71.9 % (47.0-73.0); PLATELET COUNT AUTOMATED 279 10*3/uL (130-400); RED BLOOD COUNT 3.89 10*6/uL (4.10-5.10); RED CELL DISTRI WIDTH 13.8 % (0-14.5); WHITE BLOOD COUNT 8.8 10*3/uL (4.8-10.8)
[2025-02-11 08:49] LABS: ALKALINE PHOSPHATASE 73 U/L (46-116); BUN 13 mg/dl (9-23); CHLORIDE 97 mmol/L (98-107); CHOLESTEROL 150 mg/dL (<200); FREE T4 1.09 ng/dl (0.89-1.76); LDL CHOLESTEROL 66 mg/dL (9-159); POTASSIUM 4.4 mmol/L (3.4-5.1); SGPT/ALT 20 U/L (5-49); TRIGLYCERIDES 266 mg/dl (<150)
[2025-02-11 08:50] LABS: VITAMIN D, 25-HYDROXY 9.1 ng/mL (30-100)
== END | disposition home or self-care (01) ==
LOC: LAB 07:52 → MAMMO 07:52
PROVIDERS: ATTEND Internal Medicine
DX: Z12.31 Encounter for screening mammogram for malignant neoplasm of breast (principal); R92.323 Mammographic fibroglandular density, bilateral breasts; E55.9 Vitamin D deficiency, unspecified; D51.9 Vitamin B12 deficiency anemia, unspecified; Z13.0 Encounter for screening for diseases of the blood and blood-forming organs and certain disorders involving the immune mechanism; Z13.1 Encounter for screening for diabetes mellitus; Z13.21 Encounter for screening for nutritional disorder; Z13.220 Encounter for screening for lipoid disorders; Z13.228 Encounter for screening for other metabolic disorders; Z13.6 Encounter for screening for cardiovascular disorders; Z13.89 Encounter for screening for other disorder

== ENCOUNTER → 2025-02-28 | Outpatient (CLI) | payer OTHER | END | disposition home or self-care (01) | LOC: CT 02-27 10:00 | PROVIDERS: ATTEND Internal Medicine Critical Care Medicine | DX: Z12.2 Encounter for screening for malignant neoplasm of respiratory organs (principal); J44.89 Other specified chronic obstructive pulmonary disease; R91.1 Solitary pulmonary nodule; I25.10 Atherosclerotic heart disease of native coronary artery without angina pectoris; R59.0 Localized enlarged lymph nodes; F17.210 Nicotine dependence, cigarettes, uncomplicated ==

== ENCOUNTER 2025-03-20 16:45 | Emergency (ER) | payer OTHER ==
[~2025-03-20] VITALS: Wt 118.4 kg
[2025-03-20 17:25] LABS: BASO # 0.1 10*3/uL (0.0-0.1); BASO % 0.5 % (0.0-1.0); EOS # 0.1 10*3/uL (0.0-0.4); EOS % 1.3 % (1.0-4.0); MEAN CELL VOLUME 96.6 fl (81.0-99.0); MEAN CORPUSCULAR HGB 30.4 pg (27.0-31.0); MEAN PLATELET VOLUME 9.5 fl (9.6-12.3); MONO # 0.7 10*3/uL (0.1-1.0); MONO % 7.4 % (3.0-9.0); NEUT # 6.8 10*3/uL (2.3-7.9); NEUT % 74.3 % (47.0-73.0); NUCLEATED RED BLOOD CELL 0.0 % (0.0-0.0); NUCLEATED RED BLOOD CELL 0.0 10*3/uL (0.0-0.0); PLATELET COUNT AUTOMATED 258 10*3/uL (130-400); RED CELL DISTRI WIDTH 14.7 % (0-14.5)
[2025-03-20 17:37] LABS: ACT PARTIAL THROMBO TIME 25.4 SECONDS (20.0-32.1)
[2025-03-20 17:45] LABS: BUN 12 mg/dl (9-23)
== END 2025-03-20 18:51 | disposition left against medical advice (07) ==
LOC: ED 16:45
PROVIDERS: Internal Medicine
DX: R06.02 Shortness of breath (principal); R05.9 Cough, unspecified; J44.9 Chronic obstructive pulmonary disease, unspecified; F17.200 Nicotine dependence, unspecified, uncomplicated; Z88.8 Allergy status to other drugs, medicaments and biological substances; Z88.1 Allergy status to other antibiotic agents; Z88.5 Allergy status to narcotic agent; Z79.899 Other long term (current) drug therapy; Z79.84 Long term (current) use of oral hypoglycemic drugs; Z90.711 Acquired absence of uterus with remaining cervical stump; Z90.49 Acquired absence of other specified parts of digestive tract; Z53.29 Procedure and treatment not carried out because of patient's decision for other reasons

== ENCOUNTER 2025-04-23 14:39 | Inpatient (IN) | payer OTHER, MEDICARE ==
[~2025-04-23] VITALS: Ht 167.6 cm; Wt 119.4 kg
[2025-04-23 14:52] VITALS: BP 139/58
[2025-04-23] MEDS ORDERED: Albuterol Sulf/Ipratropium 3 ML VIAL NEB ONE (15:30)
[2025-04-23 15:43] LABS: BASO # 0.0 10*3/uL (0.0-0.1); BASO % 0.4 % (0.0-1.0); EOS # 0.2 10*3/uL (0.0-0.4); EOS % 2.2 % (1.0-4.0); MEAN CELL VOLUME 93.2 fl (81.0-99.0); MEAN CORPUSCULAR HGB 30.0 pg (27.0-31.0); MEAN PLATELET VOLUME 9.4 fl (9.6-12.3); MONO # 0.7 10*3/uL (0.1-1.0); MONO % 7.5 % (3.0-9.0); NEUT # 7.1 10*3/uL (2.3-7.9); NEUT % 74.8 % (47.0-73.0); NUCLEATED RED BLOOD CELL 0.0 % (0.0-0.0); NUCLEATED RED BLOOD CELL 0.0 10*3/uL (0.0-0.0); PLATELET COUNT AUTOMATED 275 10*3/uL (130-400); RED CELL DISTRI WIDTH 14.1 % (0-14.5)
[2025-04-23 16:04] LABS: BUN 12 mg/dl (9-23)
[2025-04-23 18:59] VITALS: BP 151/64
[2025-04-23 20:30] VITALS: BP 138/89
[2025-04-23] MEDS ORDERED: Albuterol Sulf/Ipratropium 3 ML VIAL NEB SCH (21:05)
[2025-04-24] VITALS: BP 125/56
[2025-04-24 07:04] LABS: BASO # 0.0 10*3/uL (0.0-0.1); BASO % 0.2 % (0.0-1.0); EOS # 0.0 10*3/uL (0.0-0.4); EOS % 0.0 % (1.0-4.0); MEAN CELL VOLUME 93.8 fl (81.0-99.0); MEAN CORPUSCULAR HGB 29.7 pg (27.0-31.0); MEAN PLATELET VOLUME 9.8 fl (9.6-12.3); MONO # 0.3 10*3/uL (0.1-1.0); MONO % 2.5 % (3.0-9.0); NEUT # 9.3 10*3/uL (2.3-7.9); NEUT % 87.9 % (47.0-73.0); NUCLEATED RED BLOOD CELL 0.0 % (0.0-0.0); NUCLEATED RED BLOOD CELL 0.0 10*3/uL (0.0-0.0); PLATELET COUNT AUTOMATED 312 10*3/uL (130-400); RED CELL DISTRI WIDTH 13.8 % (0-14.5)
[2025-04-24 07:27] LABS: BUN 16 mg/dl (9-23)
[2025-04-24] MEDS ORDERED: ACETAMINOPHEN 500 MG TAB PO PRN (08:30)
[2025-04-24 08:45] VITALS: BP 136/58
[2025-04-24] MEDS ORDERED: METOLAZONE 2.5 MG TAB PO SCH (09:30)
[2025-04-24] MEDS ORDERED: GEMFIBROZIL 600 MG TAB PO SCH (10:00)
[2025-04-24] MEDS ORDERED: LISINOPRIL 20 MG TAB PO SCH (10:00)
[2025-04-24] MEDS ORDERED: POTASSIUM CHLORIDE 10 MEQ TAB PO SCH (10:00)
[2025-04-24] MEDS ORDERED: BUMETANIDE 1 MG TAB PO SCH (10:00)
[2025-04-24 12:00] VITALS: BP 133/57
[2025-04-24 16:00] VITALS: BP 131/55
[2025-04-24 16:09] LABS: ABG BASE EXCESS 3.6 mmol/L (-2.0-3.0); ABG O2 SATURATION 92.4 % (94.0-98.0); ARTERIAL BLOOD GAS PH 7.344 (7.350-7.450); ARTERIAL BLOOD GAS PO2 64.2 mmHg (83.0-108.0)
[2025-04-24 20:00] VITALS: BP 137/59
[2025-04-24 22:00] VITALS: BP 137/59
[2025-04-25] VITALS: BP 120/60
[2025-04-25 08:00] VITALS: BP 137/58
[2025-04-25] MEDS ORDERED: Ondansetron Hydrochloride 4 MG/2 ML VIAL IV PRN (08:10)
[2025-04-25] MEDS ORDERED: Technetium Tc 99M Tetrofosmi 0.23 MG KIT IJ SCH (10:35)
[2025-04-25 12:00] VITALS: BP 108/83
[2025-04-25 15:45] VITALS: BP 137/56
[2025-04-25 20:00] VITALS: BP 130/60
[2025-04-26] VITALS: BP 117/60
[2025-04-26] MEDS ORDERED: Regadenoson 0.4 MG/5 ML SYR IV ONE (06:31)
[2025-04-26 07:10] LABS: BASO # 0.0 10*3/uL (0.0-0.1); BASO % 0.1 % (0.0-1.0); EOS # 0.0 10*3/uL (0.0-0.4); EOS % 0.0 % (1.0-4.0); MEAN CELL VOLUME 94.6 fl (81.0-99.0); MEAN CORPUSCULAR HGB 29.6 pg (27.0-31.0); MEAN PLATELET VOLUME 10.0 fl (9.6-12.3); MONO # 0.4 10*3/uL (0.1-1.0); MONO % 3.8 % (3.0-9.0); NEUT # 8.8 10*3/uL (2.3-7.9); NEUT % 83.2 % (47.0-73.0); NUCLEATED RED BLOOD CELL 0.0 % (0.0-0.0); NUCLEATED RED BLOOD CELL 0.0 10*3/uL (0.0-0.0); PLATELET COUNT AUTOMATED 328 10*3/uL (130-400); RED CELL DISTRI WIDTH 14.3 % (0-14.5)
[2025-04-26 07:50] LABS: BUN 29 mg/dl (9-23)
[2025-04-26] MEDS ORDERED: AMINOPHYLLINE 250 MG/10 ML VIAL IV ONE (08:45)
[2025-04-26 09:49] VITALS: BP 137/58
[2025-04-26 12:00] VITALS: BP 108/51
[2025-04-26] MEDS ORDERED: LOPRESSOR25 MG PO (12:23)
== END 2025-04-26 11:34 | disposition home or self-care (01) | DRG 189 ==
LOC: ED 14:39 → 5E 17:22 → EDHOLD 17:22 → 5E 19:32
PROVIDERS: Emergency Medicine; Internal Medicine Critical Care Medicine; ADMIT Internal Medicine; ATTEND Internal Medicine
DX: J96.21 Acute and chronic respiratory failure with hypoxia (principal); I50.33 Acute on chronic diastolic (congestive) heart failure; J44.1 Chronic obstructive pulmonary disease with (acute) exacerbation; I50.32 Chronic diastolic (congestive) heart failure; Z68.41 Body mass index [BMI] 40.0-44.9, adult; I47.20 Ventricular tachycardia, unspecified; G47.33 Obstructive sleep apnea (adult) (pediatric); K21.9 Gastro-esophageal reflux disease without esophagitis; E66.01 Morbid (severe) obesity due to excess calories; E11.9 Type 2 diabetes mellitus without complications; I11.0 Hypertensive heart disease with heart failure; J96.22 Acute and chronic respiratory failure with hypercapnia; Z88.6 Allergy status to analgesic agent; Z88.1 Allergy status to other antibiotic agents; Z88.8 Allergy status to other drugs, medicaments and biological substances; Z90.710 Acquired absence of both cervix and uterus; Z90.49 Acquired absence of other specified parts of digestive tract; Z98.51 Tubal ligation status; Z83.3 Family history of diabetes mellitus; Z82.49 Family history of ischemic heart disease and other diseases of the circulatory system